=== PATIENT | male | born 1955 | race Caucasian/White ===

== ENCOUNTER → 2020-04-05 08:30 | Outpatient (BNV) | payer MEDICARE, OTHER, SELFPAY | PROVIDERS: PCP Hospitalist; Visit Provider Internal Medicine Medical Oncology | DX: D69.3 Immune thrombocytopenic purpura (principal); D64.9 Anemia, unspecified | CPT/HCPCS: 99212; 99213; 99214 ==

== ENCOUNTER → 2020-05-05 08:57 | Outpatient (BNVA) | payer MEDICARE, OTHER, SELFPAY | PROVIDERS: PCP Hospitalist; Visit Provider Internal Medicine Cardiovascular Disease | DX: R94.39 Abnormal result of other cardiovascular function study (principal); R07.9 Chest pain, unspecified; I45.2 Bifascicular block; D69.3 Immune thrombocytopenic purpura; I10 Essential (primary) hypertension | CPT/HCPCS: 99212 ==

== ENCOUNTER → 2020-06-28 14:52 | Outpatient (BNVA) | payer MEDICARE, OTHER, SELFPAY | PROVIDERS: PCP Hospitalist; Visit Provider Internal Medicine Cardiovascular Disease | DX: I10 Essential (primary) hypertension (principal); D69.3 Immune thrombocytopenic purpura; R94.39 Abnormal result of other cardiovascular function study; I45.2 Bifascicular block | CPT/HCPCS: 93005; 99212 ==

== ENCOUNTER → 2020-09-27 09:26 | Outpatient (BNVA) | payer MEDICARE, OTHER, SELFPAY | PROVIDERS: PCP Hospitalist; Visit Provider Internal Medicine Cardiovascular Disease | DX: R91.8 Other nonspecific abnormal finding of lung field (principal); I45.2 Bifascicular block; I10 Essential (primary) hypertension; Z79.899 Other long term (current) drug therapy | CPT/HCPCS: 99212 ==

== ENCOUNTER 2020-10-15 06:02 | Outpatient (REF) | payer MEDICARE, OTHER, SELFPAY ==
[2020-10-15 11:28] LABS: MANUAL DIFF FLAG NO
[2020-10-15 11:37] LABS: Basophils Absolute Auto 0.1 X10*3/uL (0.0-0.2); Eosinophils Absolute Auto 0.3 X10*3/uL (0.0-0.4); Eosinophils Percent Auto 4.3 % (0-4); Hematocrit 37.2 % (42-52); Imm Gran Abs Auto 0.02 X10*3/uL (0.00-0.03); Imm Gran Pct Auto 0.3 % (0.0-0.4); Lymphocytes Absolute Auto 1.7 X10*3/uL (1.2-4.9); Lymphocytes Percent Auto 27.5 % (20-40); Mean Corpuscular HGB Conc 32.3 g/dl (31.0-36.0); Mean Corpuscular Hemoglobin 29.9 pg (27.0-33.0); Mean Corpuscular Volume 92.8 fL (80-98); Mean Platelet Volume 11.2 fL (9.4-12.4); Monocytes Absolute Auto 0.6 X10*3/uL (0.1-1.2); Monocytes Percent Auto 9.4 % (2-11); Neutrophils Absolute Auto 3.6 X10*3/uL (2.0-8.3); Neutrophils Percent Auto 57.5 % (45-73); Platelet Count 143 X10*3/uL (160-400); Red Blood Count 4.01 X10*6/uL (4.60-5.80); Red Cell Distribution Width 14.3 % (11.0-16.0); White Blood Count 6.3 X10*3/uL (4.8-10.8)
[2020-10-15 12:18] LABS: Prostate Specific Antigen Scr 1.65 ng/mL (<0.05-4.0)
[2020-10-15 12:26] LABS: Alanine Aminotransferase 19 U/L (0-40); Albumin Level 4.2 g/dL (3.5-5.0); Alkaline Phosphatase 61 U/L (39-117); Anion Gap 14 (12-20); Aspartate Amino Transferase 19 U/L (5-37); Bilirubin Total 0.6 mg/dL (0.0-1.0); Blood Urea Nitrogen 32 mg/dL (9-16); Calcium 9.1 mg/dL (8.4-10.2); Carbon Dioxide 26 mmol/L (22-29); Chloride 107 mmol/L (96-108); Cholesterol 139 mg/dL; Estimated Glomerular Filt Rate 55; Glucose Fasting 86 mg/dL (60-99); HDL Cholesterol 35 mg/dL; LDL Cholesterol Calculated 73 mg/dl; Potassium 4.1 mmol/L (3.3-5.1); Sodium 143 mmol/L (135-145); Triglycerides 159 mg/dL
== END 2020-10-15 06:03 | disposition home or self-care (01) ==
LOC: HO.HMGCLDS 06:02
PROVIDERS: PCP Hospitalist; Visit Provider Hospitalist
DX: Z00.00 Encounter for general adult medical examination without abnormal findings (principal); D69.3 Immune thrombocytopenic purpura
CPT/HCPCS: 36415; 80053; 80061; 84153; 85025

== ENCOUNTER → 2020-10-18 08:44 | Outpatient (BNVA) | payer MEDICARE, OTHER, SELFPAY | PROVIDERS: PCP Hospitalist; Visit Provider Internal Medicine Pulmonary Disease | DX: R91.8 Other nonspecific abnormal finding of lung field (principal) | CPT/HCPCS: 99202 ==

== ENCOUNTER 2020-11-05 07:45 | Outpatient (REF) | payer MEDICARE, OTHER, SELFPAY ==
--- NOTE | 2020-11-05 15:31 | PFT_ITS ---
FVC, FEV1, [id number], and MVV are all normal. Post bronchodilator therapy, there is no change. Total lung capacity normal. Residual volume slightly decreased. Diffusion capacity normal. CONCLUSION: Normal pulmonary function test. MD ADRIANA Vasquez/MODL / [id number]
== END 2020-11-05 07:46 | disposition home or self-care (01) ==
LOC: HO.RESP 07:45
PROVIDERS: PCP Hospitalist; Visit Provider Internal Medicine Pulmonary Disease
DX: R91.8 Other nonspecific abnormal finding of lung field (principal)
CPT/HCPCS: 94060; 94727; 94729

== ENCOUNTER 2020-11-08 14:23 | Outpatient (REF) | payer MEDICARE, OTHER, SELFPAY ==
--- NOTE | ~2020-11-08 | US_ITS ---
EXAMINATION: US RETROPERITONEAL LIMITED (RENAL ONLY) CLINICAL INFORMATION: Renal stones and cysts. COMPARISON: Ultrasound renal 12/22/2019 and 12/11/2018. TECHNIQUE: Real-time imaging of the kidneys. FINDINGS: RIGHT KIDNEY: 11.3 x 6.1 x 6.8 cm (SAG x AP x TRV). The kidney is normal in size, contour, and echogenicity. Renal cortical thickness is normal. There are 2 cysts measuring 2.2 x 2.9 x 1.9 cm in the upper pole and 4 x 3.1 x 3.6 cm in the midpole. No renal calculi or hydronephrosis. LEFT KIDNEY: 12.5 x 5.2 x 5.0 cm (SAG x AP x TRV). The kidney is normal in size, contour, and echogenicity. Renal cortical thickness is normal. No calculi or focal parenchymal lesions. No hydronephrosis. US/US renal BI IMPRESSION: Right renal cysts. The previously identified left renal stone is not appreciated.
--- NOTE | ~2020-11-08 | CT_ITS ---
EXAMINATION: CT CHEST WITHOUT CONTRAST CLINICAL INFORMATION: Other nonspecific abnormal finding lung field COMPARISON: Previous chest x-ray most recent July 2013 TECHNIQUE: Multidetector volumetric CT imaging of the chest was done. Axial MIP volume rendering provided. Sagittal and coronal reformatted images were obtained. This CT examination was performed using dose optimization techniques as appropriate, variously including the following: *Automated exposure control *Adjustment of mA and/or kV according to patient size (this includes techniques or standardized protocols for targeted exams where dose is matched to indication/reason for exam; i.e. extremities or head) *Use of iterative reconstruction technique DLP: 322 mGy-cm FINDINGS: LUNGS: There are multiple bilateral pulmonary nodules. Largest right pulmonary nodule is a peripheral or subpleural right lower lobe nodule adjacent to the major fissure and measures 1.5 x 0.5 cm axial image 323 series 7. The largest left pulmonary nodule is a 5 mm peripheral or subpleural left lower lobe nodule adjacent to the fissure axial image 266 series 7. And 4 x 7 mm axial image 276 series 7. There is a 3 mm calcified left lower lobe nodule axial image 390 series 7 probably representing a calcified granuloma. The remainder of the pulmonary nodules are peripheral or subpleural and likely represent subpleural lymph nodes. MEDIASTINUM: There is mediastinal lymphadenopathy. Largest lymph nodes are right paratracheal and right precarinal lymph nodes that are upper normal in size measuring 1 cm. No hilar adenopathy is seen. The heart does not appear enlarged. There is mild coronary artery calcification. There is no pericardial effusion. The thoracic aorta is normal in caliber. The visualized thyroid gland is normal. PLEURA: There is no pleural effusion. No pleural mass or thickening. AXILLA: No lymphadenopathy. UPPER ABDOMEN: There is diverticulosis of the colon. OSSEOUS STRUCTURES: There are degenerative changes of the spine. CT/CT chest wo con IMPRESSION: Multiple bilateral pulmonary nodules, the majority of which are peripheral or subpleural in location and probably represent subpleural lymph nodes. Upper normal-sized mediastinal lymph nodes. Mild coronary artery calcification.
== END 2020-11-08 14:24 | disposition home or self-care (01) ==
LOC: HO.CT 14:23
PROVIDERS: PCP Hospitalist; Visit Provider Urology
DX: N20.0 Calculus of kidney (principal); N28.1 Cyst of kidney, acquired; R91.8 Other nonspecific abnormal finding of lung field
CPT/HCPCS: 71250; 76775

== ENCOUNTER → 2020-11-12 09:39 | Outpatient (BNVA) | payer MEDICARE, OTHER, SELFPAY | PROVIDERS: PCP Hospitalist; Visit Provider Internal Medicine Pulmonary Disease | DX: J45.909 Unspecified asthma, uncomplicated (principal); R91.8 Other nonspecific abnormal finding of lung field | CPT/HCPCS: 99212 ==

== ENCOUNTER → 2020-12-03 13:47 | Outpatient (BNVA) | payer MEDICARE, OTHER, SELFPAY | PROVIDERS: PCP Hospitalist; Visit Provider Urology | CPT/HCPCS: Q3014 ==

== ENCOUNTER 2021-01-21 13:16 | Outpatient (REF) | payer MEDICARE, OTHER, SELFPAY ==
--- NOTE | ~2021-01-21 | CT_ITS ---
EXAMINATION: CT CHEST WITHOUT CONTRAST CLINICAL INFORMATION: Abnormal finding of lung field. COMPARISON: CT chest 11/08/2020. TECHNIQUE: Multidetector volumetric CT imaging of the chest was done. Axial MIP volume rendering provided. Sagittal and coronal reformatted images were obtained. This CT examination was performed using dose optimization techniques as appropriate, variously including the following: *Automated exposure control *Adjustment of mA and/or kV according to patient size (this includes techniques or standardized protocols for targeted exams where dose is matched to indication/reason for exam; i.e. extremities or head) *Use of iterative reconstruction technique DLP: 330 mGy-cm FINDINGS: TAXI DRIVER SUPERVISOR: Unremarkable. LUNGS: The lungs are expanded and clear of acute pneumonic consolidation. There are multiple pulmonary nodules visualized. The largest nodule along the right major fissure measures 1.4 cm on axial image 277/5. There are several smaller nodular changes along the right major fissure on either side at the same level on axial image 276/5 and 272/5. There are 2 additional smaller 3 mm nodules right middle lobe axial image 28/3. There is a 5 mm nodule right major fissure axial image 33/3, 7 mm nodule right lower lobe axial image 382/5. All of these nodules are unchanged. There is no atelectasis or ground-glass density. MEDIASTINUM: The thyroid lobes are symmetrical and normal. The central trachea and the bronchi are widely patent. There are small shotty lymph nodes in the subcarinal, pretracheal space and aortic window. PLEURA: There is no pleural effusion. No pleural mass or thickening. AXILLA: No lymphadenopathy. UPPER ABDOMEN: Visualized liver, spleen, pancreas and bilateral adrenal glands are unremarkable. There is a partially exophytic cyst upper pole right kidney. A small 2 mm radiopaque calculus seen upper pole left kidney. OSSEOUS STRUCTURES: No lytic or sclerotic process seen. CT/CT chest wo con IMPRESSION: Multiple bilateral thyroid nodules are stable. There are small shotty mediastinal lymph nodes. Colonic diverticulosis without diverticulitis.
== END 2021-01-21 13:17 | disposition home or self-care (01) ==
LOC: HO.CT 13:16
PROVIDERS: PCP Hospitalist; Visit Provider Internal Medicine Pulmonary Disease
DX: R91.8 Other nonspecific abnormal finding of lung field (principal)
CPT/HCPCS: 71250

== ENCOUNTER → 2021-02-18 08:52 | Outpatient (BNVA) | payer MEDICARE, OTHER, SELFPAY | PROVIDERS: PCP Hospitalist; Visit Provider Internal Medicine Pulmonary Disease | DX: J45.909 Unspecified asthma, uncomplicated (principal); R91.8 Other nonspecific abnormal finding of lung field | CPT/HCPCS: 99212 ==

== ENCOUNTER 2021-08-03 07:12 | Outpatient (REF) | payer MEDICARE, OTHER, SELFPAY ==
--- NOTE | ~2021-08-03 | CT_ITS ---
EXAMINATION: CT CHEST WITHOUT CONTRAST CLINICAL INFORMATION: Pulmonary nodule. COMPARISON: None TECHNIQUE: Multidetector volumetric CT imaging of the chest was done. Axial MIP volume rendering provided. Sagittal and coronal reformatted images were obtained. This CT examination was performed using dose optimization techniques as appropriate, variously including the following: *Automated exposure control *Adjustment of mA and/or kV according to patient size (this includes techniques or standardized protocols for targeted exams where dose is matched to indication/reason for exam; i.e. extremities or head) *Use of iterative reconstruction technique DLP: 409 mGy-cm FINDINGS: FLOWER CHENILLER: Elevated right hemidiaphragm. LUNGS: Again visualized are multiple calcified and non calcified nodules in both lungs. The largest non calcified nodule right lobe adjacent to the major fissure measures 1.2 cm axial image 223/5. Adjacent focal nodules along the right major fissure on axial image 223/5 are stable. 3 mL nodule along the right major fissure and right lower lobe axial image 257/6 is stable as well, at least 2 pleural-based nodules left lower lobe are stable as well. No new nodules are seen. MEDIASTINUM: The thyroid lobes are of normal size. The central trachea and the bronchi are widely patent. Heart size and the great vessels are of normal caliber. There are small shotty pretracheal and paratracheal lymph nodes. The largest pretracheal lymph node measuring 1.1 cm axial image 20/3 is stable. There are trace coronary artery calcifications. There is no pericardial effusion seen. PLEURA: There is no pleural effusion. No pleural mass or thickening. AXILLA: No lymphadenopathy. UPPER ABDOMEN: Visualized liver, spleen, pancreas and bilateral adrenal glands are unremarkable. There are no radiopaque gallstones. There is a right renal cyst. There is diffuse colonic diverticulosis. OSSEOUS STRUCTURES: No lytic or sclerotic process seen. CT/CT chest wo con IMPRESSION: Stable multiple pulmonary nodules and shotty mediastinal lymph nodes. No new pulmonary nodules are seen. Colonic diverticulosis without diverticulitis. Fleischner guidelines were followed.
== END 2021-08-03 07:13 | disposition home or self-care (01) ==
LOC: HO.CT 07:12
PROVIDERS: PCP Internal Medicine; Visit Provider Internal Medicine Pulmonary Disease
DX: R91.8 Other nonspecific abnormal finding of lung field (principal)
CPT/HCPCS: 71250

== ENCOUNTER → 2021-08-26 08:56 | Outpatient (BNVA) | payer MEDICARE, OTHER, SELFPAY | PROVIDERS: PCP Internal Medicine; Visit Provider Internal Medicine Pulmonary Disease | DX: J45.909 Unspecified asthma, uncomplicated (principal); R91.8 Other nonspecific abnormal finding of lung field | CPT/HCPCS: 99212 ==

== ENCOUNTER 2021-12-22 14:20 | Outpatient (REF) | payer MEDICARE, OTHER, SELFPAY ==
--- NOTE | ~2021-12-22 | US_ITS ---
EXAMINATION: US RETROPERITONEAL LIMITED (RENAL ONLY) CLINICAL INFORMATION: Calculus of kidney. COMPARISON: US retroperitoneal limited (renal only) 11/08/2020 TECHNIQUE: Real-time imaging of the kidneys. FINDINGS: RIGHT KIDNEY: 11.9 x 6.4 x 5.4 cm (SAG x AP x TRV). The kidney is normal in size, contour, and echogenicity. Renal cortical thickness is normal. No renal calculi or hydronephrosis. Benign-appearing renal cysts measuring up to 5.1 cm, no imaging follow-up recommended. LEFT KIDNEY: 12.6 x 5.5 x 4.3 cm (SAG x AP x TRV). The kidney is normal in size, contour, and echogenicity. Renal cortical thickness is normal. No calculi or focal parenchymal lesions. No hydronephrosis. US/US renal BI IMPRESSION: No hydronephrosis or nephrolithiasis.
== END 2021-12-22 14:21 | disposition home or self-care (01) ==
LOC: HO.US 14:20
PROVIDERS: Visit Provider Urology
DX: N20.0 Calculus of kidney (principal)
CPT/HCPCS: 76775

== ENCOUNTER → 2022-01-25 11:04 | Outpatient (BNVA) | payer MEDICARE, OTHER, SELFPAY | PROVIDERS: PCP Hospitalist; Visit Provider Urology | DX: N52.01 Erectile dysfunction due to arterial insufficiency (principal); N28.1 Cyst of kidney, acquired; N20.0 Calculus of kidney | CPT/HCPCS: 99212 ==

== ENCOUNTER 2022-03-17 06:48 | Day surgery (SDC) | payer MEDICARE, OTHER, SELFPAY ==
[2022-03-13 12:22] VITALS: BMI 41.5
--- NOTE | 2022-03-14 13:26 | HO.ANESPROP2 ---
Documented by User: Ofelia Peters NP 03/16/22 09:20 HPI - Anesthesia Eval Consult details Narrative: 66yo M for Upper Endoscopy and Colonoscopy ITP - follows Dr Rosenthal. Good response to [facility]. Per Dr Rosenthal, ok to proceed without any preop considerations if platelets >100. PLT = 161 on 03/16/22 Cardiac w/u 2020 for bifasc block WNL Follow pulm for nodules - stable on last chest CT PMFSH Active Problems Active Problems: All Active Problems (Updated 03/13/22 @ 15:27 by Joana Turner RN) Chronic ITP (idiopathic thrombocytopenia) (Acute) Equivocal stress test (Acute) Exertional chest pain (Acute) Bifascicular block (Acute) Lung nodules (Acute) CAD (coronary artery disease) (Acute) Erectile dysfunction due to arterial insufficiency (Acute) Renal cyst (Acute) Kidney stones (Acute) Asthma (Acute) Hypertension (Acute) Past Medical History Medical History (Updated 03/13/22 @ 15:27 by Joana Turner RN) Anemia Asthma Basal cell carcinoma (BCC) in situ of skin Chronic ITP (idiopathic thrombocytopenic purpura) Gout Hypertension Kidney stones Malignant melanoma of skin of arm MALIHA on CPAP Right bundle branch block (RBBB) with left anterior fascicular block Family History Family History Father No problems noted. Mother No problems noted. Family/Other No problems noted. Sister Pancreatic cancer Surgical History Surgical History (Updated 03/13/22 @ 15:27 by Joana Turner RN) H/O bilateral hip replacements History of hernia surgery Hx of colonoscopy Hx of cystoscopy Hx of lithotripsy Social History Social History Household Members: Spouse Housing: House Are you a primary geriatric care manager to a significant other at home: No Do you presently have visiting nurse or other home services: No Alcohol intake: current Alcohol intake frequency: a few times a month Alcohol type: beer Patient Tobacco Use Status: Never used Tobacco Use of substances other than those prescribed or required for medical reasons: No Have you been hit, kicked, punched, or otherwise hurt by someone within the past year? If so, by whom?: No Are you DNR?: No Advance Directives: No Advance Directives Information Provided: Yes Advance Directives on File: No Recently lost weight without trying: No Poor oral hygiene: No service: No Current occupational status: retired Meds Allergies Allergy/AdvReac Type Severity Reaction Status Date / Time No Known Allergies Allergy Verified 03/13/22 12:21 Home Medications Medication Instructions Recorded Confirmed Last Taken Type acetaminophen 650 mg tablet 650 mg PO Q4H PRN Pain 04/05/20 03/13/22 03/15/22 History budesonide-formoterol HFA 160 2 puff inhalation BID PRN 04/05/20 03/13/22 03/16/22 History mcg-4.5 mcg/actuation aerosol Shortness Of Breath Or Wheezing inhaler (Symbicort) cetirizine 10 mg capsule (Zyrtec) 10 mg PO DAILY 04/05/20 03/13/22 03/16/22 History diphenhydramine HCl 50 mg capsule 50 mg PO Q6H PRN Allergic Reaction 04/05/20 03/13/22 12/21/21 History fluticasone propionate 50 2 spray intranasal BEDTIME 04/05/20 03/13/22 03/16/22 History mcg/actuation nasal spray,suspension montelukast 10 mg tablet 10 mg PO BEDTIME 04/05/20 03/13/22 03/16/22 History (Singulair) multivitamin 1 cap PO DAILY 04/05/20 03/13/22 03/16/22 History cholecalciferol (vitamin D3) 50 50 mcg PO DAILY 07/19/20 03/13/22 03/16/22 History mcg (2,000 unit) tablet (Vitamin D3) amlodipine 5 mg-benazepril 20 mg 1 cap PO DAILY 09/30/21 03/13/22 03/16/22 History capsule cyanocobalamin (vitamin B-12) 1,000 mcg PO DAILY 01/02/22 03/13/22 03/16/22 History 1,000 mcg tablet (Vitamin B-12) Exam Exam Date and Time: March 14, 2022 1326 Height,Weight and Vital Signs: Height 5 ft 10 in Weight 131.542 kg Pertinent Lab Results Pertinent Lab Results: Laboratory Tests 03/06/22 03/06/22 08:26 08:26 WBC 6.3 Hgb 12.0 L Hct 36.8 L Plt Count 134 L Sodium 144 Potassium 4.1 Chloride 109 H Carbon Dioxide 26 BUN 16 Creatinine 1.03 Narrative Narrative: EKG 2020 sinus tachycardia, RBBB, LAFB, LVH, QTc 481 msec Per 09/2020 cardiac visit: Echocardiography did not show any significant pathology.? His nuclear perfusion imaging was normal but he was only able to exercise for 4 minutes 48 seconds achieving a workload of 6.7 Mets.? He stopped due to fatigue.? He denied chest discomfort during the stress test.? He had multiple premature atrial complexes and premature ventricular complexes with nonspecific ST changes. He was previously referred for coronary CTA.? He is here to discuss the results.? Coronary CTA showed no evidence of hemodynamically significant coronary artery disease.? There was scattered minimal and predominantly calcific plaque in the LAD and RCA. Assessment and Plan Assessment Anesthesia Assessment: Chart Reviewed Documented by User: Opal Dobbs MD 03/17/22 09:11 [facility] Past Medical History Medical History (Updated 03/13/22 @ 15:27 by Joana Turner RN) Anemia Asthma Basal cell carcinoma (BCC) in situ of skin Chronic ITP (idiopathic thrombocytopenic purpura) Gout Hypertension Kidney stones Malignant melanoma of skin of arm MALIHA on CPAP Right bundle branch block (RBBB) with left anterior fascicular block Family History Family History Father No problems noted. Mother No problems noted. Family/Other No problems noted. Sister Pancreatic cancer Family history of problems with anesthesia: No Surgical History Surgical History (Updated 03/13/22 @ 15:27 by Joana Turner RN) H/O bilateral hip replacements History of hernia surgery Hx of colonoscopy Hx of cystoscopy Hx of lithotripsy History of Problems with Anesthesia: No Social History Social History Household Members: Spouse Housing: House Are you a primary geriatric care manager to a significant other at home: No Do you presently have visiting nurse or other home services: No Alcohol intake: current Alcohol intake frequency: a few times a month Alcohol type: beer Patient Tobacco Use Status: Never used Tobacco Use of substances other than those prescribed or required for medical reasons: No Have you been hit, kicked, punched, or otherwise hurt by someone within the past year? If so, by whom?: No Are you DNR?: No Advance Directives: No Advance Directives Information Provided: Yes Advance Directives on File: No Recently lost weight without trying: No Poor oral hygiene: No service: No Current occupational status: retired [employer] Allergies Allergy/AdvReac Type Severity Reaction Status Date / Time No Known Allergies Allergy Verified 03/13/22 12:21 Home Medications Medication Instructions Recorded Confirmed Last Taken Type acetaminophen 650 mg tablet 650 mg PO Q4H PRN Pain 04/05/20 03/13/22 03/15/22 History budesonide-formoterol HFA 160 2 puff inhalation BID PRN 04/05/20 03/13/22 03/16/22 History mcg-4.5 mcg/actuation aerosol Shortness Of Breath Or Wheezing inhaler (Symbicort) cetirizine 10 mg capsule (Zyrtec) 10 mg PO DAILY 04/05/20 03/13/22 03/16/22 History diphenhydramine HCl 50 mg capsule 50 mg PO Q6H PRN Allergic Reaction 04/05/20 03/13/22 12/21/21 History fluticasone propionate 50 2 spray intranasal BEDTIME 04/05/20 03/13/22 03/16/22 History mcg/actuation nasal spray,suspension montelukast 10 mg tablet 10 mg PO BEDTIME 04/05/20 03/13/22 03/16/22 History (Singulair) multivitamin 1 cap PO DAILY 04/05/20 03/13/22 03/16/22 History cholecalciferol (vitamin D3) 50 50 mcg PO DAILY 07/19/20 03/13/22 03/16/22 History mcg (2,000 unit) tablet (Vitamin D3) amlodipine 5 mg-benazepril 20 mg 1 cap PO DAILY 09/30/21 03/13/22 03/16/22 History capsule cyanocobalamin (vitamin B-12) 1,000 mcg PO DAILY 01/02/22 03/13/22 03/16/22 History 1,000 mcg tablet (Vitamin B-12) Exam Height,Weight and Vital Signs: Height 5 ft 10 in Weight 131.542 kg Vital Signs Temp Pulse Resp BP Pulse Ox O2 Del Method 03/17/22 07:05 98 F 86 17 159/72 H 97 Room Air Airway Mallampati Class: II TM Dist: >3cm Neck ROM: Full Loose/Missing/Broken Teeth: Yes (Some missing ) Heart: RRR Lungs: CTAB Assessment and Plan Assessment Anesthesia Assessment: Anesthesia Plan Discussed Final Anesthetic Review Family History of Problems with Anesthesia: No History of Problems with Anesthesia: No NPO: Yes ASA Class: III Final Preanesthetic Review: No Changes in Pt Med Stat, Meds/Allgs Chart Reviewed, Consent Obtained/Reviewed and Anes Risks/Benef Reviewed Patient Risk: Intermediate Procedure Risk: Low Assessment/Block/Sedation in SS: Assess/Block/Sedation-SS Anesthetic Plan Anesthetic Plan: MAC: Disposition: Standard PACU
[2022-03-17 07:05] VITALS: BP 159/72; PULSE 86; RESP 17; TEMP 36.6; O2SAT 97
[2022-03-17] MEDS: Lactated Ringers 1,000 ML 100 ML IVCONT (07:22)
--- NOTE | 2022-03-17 08:15 | MHC.SHP ---
Pre-Procedural Eval Section A Date of Service: 03/17/22 Section B Chief Complaint: Iron deficiency anemia, unspecified Details of Present Illness: see H*P no changes Relevant Family History (Specify if Yes): No Relevant Social History: None Present Medications: see Short Stay Collaborative assessment Medical History: No relevant PMH History of Previous Operations: No relevant previous surgery Allergies: Allergies Allergy/AdvReac Type Severity Reaction Status Date / Time No Known Allergies Allergy Verified 03/13/22 12:21 Review of Systems Sugical H&P ROS: Negative: Constitution, Cardiovascular, Respiratory, Neurological, Psychiatric, Hem-Onc, Allergic/Immunologic, Gastrointestinal, Genitourinary, Musculoskeletal, Integumentary, Endocrine and Eyes/Ears/Nose/Throat Exam Surgical H&P Exam: Normal: HEENT, Normal: Heart, Normal: Lungs, Normal: Extremities, Normal: Abdomen, Normal: Skin and Normal: Neurological Plan Diagnosis/Plan: Unchanged I have reviewed the history and physical and performed a pertinent physical examination on my patient. No changes have occurred unless specified.
[2022-03-17 09:07] VITALS: BP 115/60; PULSE 70; RESP 25; TEMP 36.4; O2SAT 98
--- NOTE | 2022-03-17 09:14 | PM.OP ---
Brief Operative Note Date of Service: 03/17/22 Pre-op diagnosis: iron def anemia Post-op diagnosis: same Procedure: egd, colon Surgeon: Ronny Bass Anesthesia: MAC Was an Quality Control Supervisor used for this Procedure?: No Estimated blood loss (mL): 5 Pathology: other Condition: stable Disposition: PACU
[2022-03-17 09:22] VITALS: BP 129/76; PULSE 74; RESP 20; TEMP 36.3; O2SAT 98
--- NOTE | 2022-03-17 09:56 | OP_ITS ---
SURGEON: Ronny Bass MD INDICATIONS: Iron-deficiency anemia and prior history of adenomatous colon polyps. PREOPERATIVE DIAGNOSIS: POSTOPERATIVE DIAGNOSIS: PROCEDURE PERFORMED: Upper endoscopy with biopsy, colonoscopy to the terminal ileum with snare polypectomy. Date 03/17/22. ESTIMATED BLOOD LOSS: COMPLICATIONS: ANESTHESIA: ASSISTANTS: SPECIMENS: MEDICATIONS: Monitored anesthesia care. DESCRIPTION OF PROCEDURE: History and physical performed. The risks and benefits of the procedure were explained to the patient. Informed consent was obtained. The patient was placed in the left lateral decubitus position. The Olympus video gastroscope was introduced into the esophagus, stomach, and duodenum. Examination was performed. The scope was removed. He was repositioned for colonoscopy. Digital rectal exam was performed and was found to be normal. The Olympus pediatric video colonoscope was introduced into the rectum and advanced to the cecum without difficulty. The cecum was identified by transillumination, palpation, and identification of the ileocecal valve. Examination was performed. The scope was removed. He tolerated the procedure well and was returned to the recovery area in stable condition. FINDINGS: Upper endoscopy: 1. Esophagus: The esophagus was normal. There was no esophagitis. 2. Stomach: The stomach showed multiple benign-appearing gastric polyps, measuring less than 5 mm in the fundus and body consistent with fundic gland polyps. Two of these were biopsied. Antral biopsies were obtained to rule out H pylori. 3. Duodenum: The bulb and second portion were normal. Biopsies were obtained from the duodenum. COLONOSCOPY: The terminal ileum was examined and appeared normal. The visualized colonic mucosa was normal. In the right colon just above the cecum was an 8 mm sessile polyp, was removed with a snare and recovered via suction. No other polyps were identified. The quality of the prep was good. Retroflexed examination showed some small internal hemorrhoids. IMPRESSION: 1. Gastric polyps. 2. Colon polyp. RECOMMENDATION: Follow up the biopsy results. MD BLANE Mcleod/ARIELLA / [id number] MTDD
== END 2022-03-17 09:55 | disposition home or self-care (01) ==
PROVIDERS: PCP Internal Medicine; Visit Provider Internal Medicine Gastroenterology
PROC: (CPT 45385; principal; 2022-03-17 08:10)
DX: D50.9 Iron deficiency anemia, unspecified (principal); Z86.010 Personal history of colon polyps; K64.8 Other hemorrhoids; D12.2 Benign neoplasm of ascending colon; K31.7 Polyp of stomach and duodenum; I10 Essential (primary) hypertension; D69.3 Immune thrombocytopenic purpura; I45.2 Bifascicular block; G47.33 Obstructive sleep apnea (adult) (pediatric); J45.909 Unspecified asthma, uncomplicated; Z79.51 Long term (current) use of inhaled steroids; Z79.899 Other long term (current) drug therapy; Z99.89 Dependence on other enabling machines and devices; Z96.643 Presence of artificial hip joint, bilateral
CPT/HCPCS: 45385; 43239; 88305; 88342

== ENCOUNTER 2022-09-12 07:06 | Outpatient (REF) | payer MEDICARE, OTHER, SELFPAY ==
--- NOTE | ~2022-09-12 | CT_ITS ---
EXAMINATION: CT CHEST WITHOUT CONTRAST CLINICAL INFORMATION: Abnormal lung findings. COMPARISON: CT chest 08/03/2021. TECHNIQUE: Multidetector volumetric CT imaging of the chest was done. Axial MIP volume rendering provided. Sagittal and coronal reformatted images were obtained. This CT examination was performed using dose optimization techniques as appropriate, variously including the following: *Automated exposure control *Adjustment of mA and/or kV according to patient size (this includes techniques or standardized protocols for targeted exams where dose is matched to indication/reason for exam; i.e. 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 LUNGS: The lungs are well expanded without any acute pneumonic process. There are small 1-2 mm calcified nodules scattered throughout lungs. There are several 2-3 mm noncalcified nodules seen throughout both lungs, the largest nodule right lower lobe adjacent major fissure measures 1.2 mm axial image 263/7 and is stable. There are several additional nodules seen along the right and left major fissure, similar to previous study and are stable. The largest nodule left lower lobe adjacent to major fissure measures 8 mm, axial image 237/7. MEDIASTINUM: The thyroid lobes are symmetric and normal. The central trachea and the bronchi are widely patent. Small shotty lymph nodes are seen in the mediastinum, largest measuring 1.2 cm. There is no pericardial effusion. There is mild coronary artery calcification. CORONARY ARTERY CALCIFICATION: There are mild coronary artery calcifications present. PLEURA: There is no pleural effusion. No pleural mass or thickening. AXILLA: No lymphadenopathy. UPPER ABDOMEN: The visualized liver, spleen, pancreas and bilateral adrenal glands are unremarkable. There is a 3 cm cyst upper pole right kidney. OSSEOUS STRUCTURES: No aggressive lytic or sclerotic process seen. CT/CT chest wo IV con IMPRESSION: 1. Multiple calcified and noncalcified pulmonary nodules are stable. No new nodules seen. 2. No abnormal mediastinal or axillary lymphadenopathy seen. Fleischner guidelines were followed.
== END 2022-09-12 07:07 | disposition home or self-care (01) ==
LOC: HO.CT 07:06
PROVIDERS: Visit Provider Internal Medicine Pulmonary Disease
DX: R91.8 Other nonspecific abnormal finding of lung field (principal)
CPT/HCPCS: 71250

== ENCOUNTER → 2022-09-15 08:54 | Outpatient (BNVA) | payer MEDICARE, OTHER, SELFPAY | PROVIDERS: PCP Internal Medicine; Visit Provider Internal Medicine Pulmonary Disease | DX: J45.909 Unspecified asthma, uncomplicated (principal); R91.8 Other nonspecific abnormal finding of lung field | CPT/HCPCS: 99212 ==

== ENCOUNTER 2023-01-08 07:42 | Outpatient (REF) | payer MEDICARE, OTHER, SELFPAY ==
--- NOTE | ~2023-01-08 | US_ITS ---
EXAMINATION: US RETROPERITONEAL LIMITED (RENAL ONLY) CLINICAL INFORMATION: Calculus of kidney. COMPARISON: Ultrasound retroperitoneal limited (renal only) 12/22/2021 and 11/08/2020. X-ray abdomen KUB 12/18/2012. CT abdomen and pelvis without contrast 11/25/2012. TECHNIQUE: Real-time imaging of the kidneys. Limited visualization due to bowel gas. FINDINGS: RIGHT KIDNEY: 12.6 x 6.0 x 5.2 cm (SAG x AP x TRV). No hydronephrosis. No renal calculi. Limited visualization. Benign-appearing renal cysts measuring up to 4.2 cm midpole. There is no indication for follow up imaging. LEFT KIDNEY: 12.8 x 5.3 x 4.9 cm (SAG x AP x TRV). No hydronephrosis. No renal calculi. Limited visualization. US/US renal BI IMPRESSION: No hydronephrosis. No renal calculi. Limited visualization.
== END 2023-01-08 07:43 | disposition home or self-care (01) ==
LOC: HO.US 07:42
PROVIDERS: PCP Internal Medicine; Visit Provider Urology
DX: N20.0 Calculus of kidney (principal); N28.1 Cyst of kidney, acquired
CPT/HCPCS: 76775

== ENCOUNTER 2023-01-25 08:20 | Outpatient (AMB) | payer MEDICARE, OTHER, SELFPAY ==
--- NOTE | 2023-01-25 08:28 | A.OFFVIS_ITS ---
Intake Intake Visit Reasons: 1Y US(set) Intake Note: Patient is present for Follow Up Ultrasound Urology Med: Cialis Antibiotic Allergy: None Blood Thinner: None [facility] Patient is requesting refill on cialis Allergies No Known Allergies Allergy (Verified 01/25/23 08:34) HPI HPI Comments History of Present Illness Details Donald is a pleasant male. He is seen for following urologic conditions - nephrolithiasis - erectile dysfunction - renal cysts - stable Imaging results stable no need for further imaging of cyst Erectile dysfunction stable with good response to Cialis Developing bladder outlet obstruction with variable stream and occasional urgency - trial daily tadalafil Nephrolithiasis Prior small left lower pole stone Current therapy is hydration therapy with lemon Imaging - 12/06 renal ultrasound to 3 cm cyst on right side, no evidence of stones - 12/07 renal ultrasound 5 cm right side - 12/08 renal ultrasound 5 mm right side stable - radiology recommendation no further surveillance required Erectile dysfunction Response to on demand Cialis PFSH Medical History Anemia Asthma Basal cell carcinoma (BCC) in situ of skin Chronic ITP (idiopathic thrombocytopenic purpura) Gout Hypertension Kidney stones Malignant melanoma of skin of arm MALIHA on CPAP Right bundle branch block (RBBB) with left anterior fascicular block Surgical History H/O bilateral hip replacements History of hernia surgery Hx of colonoscopy Hx of cystoscopy Hx of lithotripsy Family History Father No problems noted. Mother No problems noted. Family/Other No problems noted. Sister Pancreatic cancer Social History Household Members: Spouse Housing: House Are you a primary ocular care aide to a significant other at home: No Do you presently have visiting nurse or other home services: No Alcohol intake: current Alcohol intake frequency: a few times a month Alcohol type: beer Patient Tobacco Use Status: Never used Tobacco service: No Current occupational status: retired Review of Systems Const Denies chills and Denies fever(s) Card Reports no additional complaints and Denies syncope Resp Denies cough GI Denies abdominal pain and Denies heartburn Reports as per HPI and Denies change in libido Neuro Denies syncope Psych Denies change in libido Endo Denies change in libido Physical Exam Const General: cooperative, healthy appearing, comfortable and no acute distress Orientation/consciousness: patient oriented x3 HEENT Face and sinus: Yes normal facial exam Mouth: moist mucous membranes Neck Neck: Yes normal visual inspection, Yes full ROM and Yes trachea midline Chest Chest palpation & inspection: normal inspection of the chest Resp Effort & Inspection: normal respiratory effort, able to speak in complete sentences and no respiratory distress GI Inspection: Yes normal to inspection Back/Spine/Pelvis Cervical Spine: normal cervical lordosis Thoracic/Lumbar Spine: thoracic and lumbar spine normal to inspection Skin General skin exam: no rashes or lesions noted Neuro General: patient oriented x3, gait normal, tone normal and moves all extremities Extrem General: Yes normal to inspection and Yes capillary refill normal Assessment & Plan Assessment & Plan (1) Bladder outlet obstruction: Code(s): N32.0 - Bladder-neck obstruction Plan Three month follow-up tele Medications: New tadalafil 5 mg PO DAILY 90 days 90 tabs 1RF sexual activity N32.0 - Bladder- neck obstruction, N52.01 - Erectile dysfunction due to arterial insufficiency Patient Instructions: Imaging studies, laboratory and physical exam results were discussed and reviewed in detail. No major barriers to patient understanding were identified. An opportunity to ask questions regarding the treatment plan was provided. All questions were answered. The patient expressed understanding and agreement with the above treatment plan. The patient is aware they should contact our office by phone for worsening of their current condition or the appearance of new urologic symptoms. Compliance is encouraged with any medications and followup testing that is ordered. It is a privilege to participate in the urologic care of your patient. If you have any questions or concerns regarding treatment for the above conditions, or other urologic issues, please do not hesitate to contact me. The office telephone contact is [phone]. This note is constructed using voice recognition software. While every effort has been made to ensure accuracy laborer adjustable steel joist errors may have been included. Yours sincerely, Dr Bill Mina MD, [facility] - Urology Providers of Expert, Compassionate Care for the Genitourinary System Coding Level of Care Code Est Pt Level 4 (44412) Diagnoses Bladder outlet obstruction N32.0
== END 2023-01-25 08:56 | disposition home or self-care (01) ==
PROVIDERS: Visit Provider Urology
DX: N32.0 Bladder-neck obstruction (principal)
CPT/HCPCS: 99214

== ENCOUNTER → 2023-01-25 08:20 | Outpatient (BNVA) | payer MEDICARE, OTHER, SELFPAY | PROVIDERS: Visit Provider Urology | DX: N52.01 Erectile dysfunction due to arterial insufficiency (principal); N28.1 Cyst of kidney, acquired | CPT/HCPCS: 99212 ==

== ENCOUNTER 2023-04-27 10:01 | Outpatient (AMB) | payer MEDICARE, OTHER, SELFPAY ==
--- NOTE | 2023-04-27 10:11 | MHC.OFFVIS ---
Intake Intake Visit Reasons: 3m follow up Allergies No Known Allergies Allergy (Verified 03/12/23 08:08) HPI HPI Comments History of Present Illness Details Donald is a pleasant male. 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 PDE-5 inhibitors indicate the encouraging useful effects by ischemia/reperfusion injury, myocar-dial infarction, cardiac hypertrophy, cardiomyopathy and systolic and diastolic congestive heart failure. Therefore, this and similar reviews can help for additional clinical targeting in the therapy of cardiovascular diseases. Telemedicine Evaluation 15 min Consultation [employer] Video attempted Recommend starting daily tadalafil Imaging results stable no need for further imaging of cyst Erectile dysfunction stable with good response to Cialis Developing bladder outlet obstruction with variable stream and occasional urgency - trial daily tadalafil Nephrolithiasis Prior small left lower pole stone Current therapy is hydration therapy with lemon Imaging - 12/06 renal ultrasound to 3 cm cyst on right side, no evidence of stones - 12/07 renal ultrasound 5 cm right side - 12/08 renal ultrasound 5 mm right side stable - radiology recommendation no further surveillance required Erectile dysfunction Response to on demand Cialis PFSH Medical History Anemia Asthma Basal cell carcinoma (BCC) in situ of skin Chronic ITP (idiopathic thrombocytopenic purpura) Gout Hypertension Kidney stones Malignant melanoma of skin of arm MALIHA on CPAP Right bundle branch block (RBBB) with left anterior fascicular block Surgical History H/O bilateral hip replacements History of hernia surgery Hx of colonoscopy Hx of cystoscopy Hx of lithotripsy Family History Father No problems noted. Mother No problems noted. Family/Other No problems noted. Sister Pancreatic cancer Social History Household Members: Spouse Housing: House Are you a primary personal care attendant to a significant other at home: No Do you presently have visiting nurse or other home services: No Alcohol intake: current Alcohol intake frequency: a few times a month Alcohol type: beer Patient Tobacco Use Status: Never used Tobacco service: No Current occupational status: retired Review of Systems Const All systems reviewed & are unremarkable except as noted in HPI and below Reports no additional complaints Resp Reports no additional complaints GI Reports no additional complaints Reports as per HPI Musc Reports no additional complaints Physical Exam Telemedicine evaluation Appropriate responses Regular breathing rate and rhythm HEENT Head: Yes normal to inspection Ears: hearing grossly normal bilaterally Eyes General: appearance normal, both eyes and all related structures Neck Neck: Yes normal visual inspection Chest Chest palpation & inspection: normal inspection of the chest Resp Effort & Inspection: normal respiratory effort and able to speak in complete sentences Assessment & Plan Assessment & Plan (1) Bladder outlet obstruction: Code(s): N32.0 - Bladder-neck obstruction (2) Kidney stones: Code(s): N20.0 - Calculus of kidney (3) Erectile dysfunction due to arterial insufficiency: Code(s): N52.01 - Erectile dysfunction due to arterial insufficiency Plan 6 month follow-up Patient Instructions: Imaging studies, laboratory and physical exam results were discussed and reviewed in detail. No major barriers to patient understanding were identified. An opportunity to ask questions regarding the treatment plan was provided. All questions were answered. The patient expressed understanding and agreement with the above treatment plan. The patient is aware they should contact our office by phone for worsening of their current condition or the appearance of new urologic symptoms. Compliance is encouraged with any medications and followup testing that is ordered. It is a privilege to participate in the urologic care of your patient. If you have any questions or concerns regarding treatment for the above conditions, or other urologic issues, please do not hesitate to contact me. The office telephone contact is [phone]. This note is constructed using voice recognition software. While every effort has been made to ensure accuracy technical consultant errors may have been included. Yours sincerely, Dr Bill Mina MD, [facility] - Urology Providers of Expert, Compassionate Care for the Genitourinary System Telehealth Telehealth Location of provider rendering services: practice address Location of patient: address on file Patient Identification confirmed using: Name, : Yes Telehealth method: video Patient verbally consented to treatment: Yes Patient verbally consented to billing insurance company: Yes Patient informed of any privacy concerns related to visit: Yes Coding Level of Care Code Tele Est Pt Level 3 (79282) Diagnoses Bladder outlet obstruction N32.0 Kidney stones N20.0 Erectile dysfunction due to arterial insufficiency N52.01
== END 2023-04-27 10:21 | disposition home or self-care (01) ==
LOC: HO.HUSH 10:01
PROVIDERS: PCP Internal Medicine; Visit Provider Urology
DX: N32.0 Bladder-neck obstruction (principal); N20.0 Calculus of kidney; N52.01 Erectile dysfunction due to arterial insufficiency
CPT/HCPCS: 99213

== ENCOUNTER → 2023-04-27 10:01 | Outpatient (BNVA) | payer MEDICARE, OTHER, SELFPAY | PROVIDERS: PCP Internal Medicine; Visit Provider Urology ==

== ENCOUNTER 2023-10-26 09:38 | Outpatient (AMB) | payer MEDICARE, OTHER, SELFPAY ==
--- NOTE | 2023-10-26 10:03 | A.OFFVIS_ITS ---
Intake Visit Reasons: 6m follow up Intake Note: Patient is Present for Follow Up Urology Medication: Tadalafil Antibiotic Allergies: None Blood Thinners: None Allergies No Known Allergies Allergy (Verified 10/26/23 10:08) Medication List - Last Reconciled 10/26/23 by Bill Mina MD acetaminophen 650 mg PO Q4H PRN amlodipine-benazepril 5-20 mg 1 cap PO DAILY budesonide-formoterol 160-4.5 mcg/actuation (Symbicort) 2 puffs inhalation BID PRN cetirizine (Zyrtec) 10 mg PO DAILY cholecalciferol (vitamin D3) (Vitamin D3) 50 mcg PO DAILY cyanocobalamin (vitamin B-12) (Vitamin B-12) 1,000 mcg PO DAILY diphenhydramine HCl 50 mg PO Q6H PRN fluticasone propionate 50 mcg/actuation 2 sprays intranasal BEDTIME imiquimod 2.5% 2.5 appl topical DAILY montelukast (Singulair) 10 mg PO BEDTIME multivitamin 1 cap PO DAILY ondansetron 4 mg PO Q6H prednisone 40 mg (2 x 20 mg) PO DAILY tadalafil (Cialis) 10 mg PO ONCE PRN 30 days tadalafil 5 mg PO DAILY 90 days HPI Comments Details: Donald is a pleasant male. 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 PDE-5 inhibitors indicate the encouraging useful effects by ischemia/reperfusion injury, myocar-dial infarction, cardiac hypertrophy, cardiomyopathy and systolic and diastolic congestive heart failure. Therefore, this and similar reviews can help for additional clinical targeting in the therapy of cardiovascular diseases. Developing bladder outlet obstruction with variable stream and occasional urgency Nephrolithiasis Prior small left lower pole stone Current therapy is hydration therapy with lemon Imaging - 12/06 renal ultrasound to 3 cm cyst on right side, no evidence of stones - 12/07 renal ultrasound 5 cm right side - 12/08 renal ultrasound 5 mm right side stable - radiology recommendation no further surveillance required - 12/09 renal ultrasound no evidence of stones Erectile dysfunction Response to on demand Cialis [facility] Medical History Carpal tunnel syndrome, left Gout Right bundle branch block (RBBB) with left anterior fascicular block MALIHA on CPAP Chronic ITP (idiopathic thrombocytopenic purpura) Malignant melanoma of skin of arm Basal cell carcinoma (BCC) in situ of skin Anemia Kidney stones Asthma Hypertension Surgical History Hx of cystoscopy Hx of lithotripsy Hx of colonoscopy History of hernia surgery H/O bilateral hip replacements Family History Father No problems noted. Mother No problems noted. Family/Other No problems noted. Sister Pancreatic cancer Social History Household Members: Spouse Housing: House Are you a primary sub acute care nurse to a significant other at home: No Do you presently have visiting nurse or other home services: No Alcohol intake: current Alcohol intake frequency: a few times a month Alcohol type: beer Patient Tobacco Use Status: Never used Tobacco service: No Current occupational status: retired Review of Systems Const Denies chills and Denies fever(s) Card Reports no additional complaints and Denies syncope Resp Denies cough GI Denies abdominal pain and Denies heartburn Reports as per HPI and Denies change in libido Neuro Denies syncope Psych Denies change in libido Endo Denies change in libido Physical Exam Const General: cooperative, healthy appearing, comfortable and no acute distress Orientation/consciousness: patient oriented x3 HEENT Face and sinus: Yes normal facial exam Mouth: moist mucous membranes Neck Neck: Yes normal visual inspection, Yes full ROM and Yes trachea midline Chest Chest palpation & inspection: normal inspection of the chest Resp Effort & Inspection: normal respiratory effort, able to speak in complete sentences and no respiratory distress GI Inspection: Yes normal to inspection Back/Spine/Pelvis Cervical Spine: normal cervical lordosis Thoracic/Lumbar Spine: thoracic and lumbar spine normal to inspection Skin General skin exam: no rashes or lesions noted Neuro General: patient oriented x3, gait normal, tone normal and moves all extremities Extrem General: Yes normal to inspection and Yes capillary refill normal Assessment & Plan Assessment & Plan (1) Bladder outlet obstruction: Code(s): N32.0 - Bladder-neck obstruction Category: Medical (2) Kidney stones: Code(s): N20.0 - Calculus of kidney Category: Medical (3) Erectile dysfunction due to arterial insufficiency: Code(s): N52.01 - Erectile dysfunction due to arterial insufficiency Category: Medical Plan Twelve month follow-up Patient Instructions: Imaging studies, laboratory and physical exam results were discussed and reviewed in detail. No major barriers to patient understanding were identified. An opportunity to ask questions regarding the treatment plan was provided. All questions were answered. The patient expressed understanding and agreement with the above treatment plan. The patient is aware they should contact our office by phone for worsening of their current condition or the appearance of new urologic symptoms. Compliance is encouraged with any medications and followup testing that is ordered. It is a privilege to participate in the urologic care of your patient. If you have any questions or concerns regarding treatment for the above conditions, or other urologic issues, please do not hesitate to contact me. The office telephone contact is [phone]. This note is constructed using voice recognition software. While every effort has been made to ensure accuracy ed tech errors may have been included. Yours sincerely, Dr Bill Mina MD, [facility] - Urology Providers of Expert, Compassionate Care for the Genitourinary System Coding Level of Care Code Est Pt Level 3 (49444) Diagnoses Bladder outlet obstruction N32.0 Kidney stones N20.0 Erectile dysfunction due to arterial insufficiency N52.01
== END 2023-10-26 10:30 | disposition home or self-care (01) ==
PROVIDERS: PCP Internal Medicine; Visit Provider Urology
DX: N32.0 Bladder-neck obstruction (principal); N20.0 Calculus of kidney; N52.01 Erectile dysfunction due to arterial insufficiency
CPT/HCPCS: 99213

== ENCOUNTER → 2023-10-26 09:38 | Outpatient (BNVA) | payer MEDICARE, OTHER, SELFPAY | PROVIDERS: PCP Internal Medicine; Visit Provider Urology | DX: N32.0 Bladder-neck obstruction (principal); N52.01 Erectile dysfunction due to arterial insufficiency; Z87.442 Personal history of urinary calculi | CPT/HCPCS: 99212 ==

== ENCOUNTER 2023-10-31 16:18 | Inpatient (IN) | payer MEDICARE, OTHER, SELFPAY ==
[2023-10-31] VITALS (12 sets, daily range): BP systolic 95–137; BP diastolic 55–82; PULSE 83–157; RESP 15–24; TEMP 36.8–37.2; O2SAT 93–98; BMI 46.6
--- NOTE | ~2023-10-31 | XR_ITS ---
EXAMINATION: XR CHEST CLINICAL INFORMATION: CHF COMPARISON: 08/14/2013 TECHNIQUE: Frontal view of the chest was obtained. FINDINGS: Compared to the prior study, the lungs are poorly less well expanded. There is some mild peribronchial cuffing. No gross upper zone redistribution. Mild prominence of interstitial markings seen at the right lung base. No pleural effusions are detected. XR/XR chest 1V IMPRESSION: Mild peribronchial cuffing and prominence of interstitial markings at the right lung base. No gross evidence of CHF.
--- NOTE | 2023-10-31 16:20 | ECG_ITS ---
Test Reason : CHEST PAIN Blood Pressure : / mmHG Vent. Rate : 150 BPM Atrial Rate : 000 BPM P-R Int : 000 ms QRS Dur : 130 ms QT Int : 278 ms P-R-T Axes : 000 -34 084 degrees QTc Int : 439 ms Atrial fibrillation with rapid ventricular response Left axis deviation Right bundle branch block Minimal voltage criteria for LVH, may be normal variant ( R in aVL ) Abnormal ECG When compared with ECG of 22-NOV-2012 11:53, Atrial fibrillation has replaced Sinus rhythm Vent. rate has increased BY 72 BPM T wave inversion now evident in Anterior leads Referred By: Generic ED Physician Electronically Signed By:SAPPHIRE GIRON MD
--- NOTE | 2023-10-31 16:33 | ED.ARRPALP ---
HPI - Arrhythmia/Palpitations General Chief Complaint: Dyspnea Stated Complaint: Chest pain, SOB, edema Time Seen by Provider: 10/31/23 16:33 Source: patient Mode of arrival: ambulatory Limitations: no limitations History of Present Illness HPI narrative: Patient's history of bifascicular block sleep apnea on CPAP at night previous coronary CTA 4 years ago was negative, hypertension, ITP recently had COVID 5 weeks ago was on prednisone tapering doses for last few days noticed funny feeling in the chest and increased shortness of breath and increased leg swelling patient called PCP who advised him to go to the ER in the ER and in the triage patient noticed to be in AFib with heart rate of 150 patient unaware of that, patient has gained about 15 lb in 4 weeks Related Data Home Medications ?Medication ?Instructions ?Recorded ?Confirmed cetirizine 10 mg capsule (Zyrtec) 10 mg PO DAILY 04/05/20 10/31/23 fluticasone propionate 50 2 spray intranasal BEDTIME 04/05/20 10/31/23 mcg/actuation nasal spray,suspension montelukast 10 mg tablet 10 mg PO BEDTIME 04/05/20 10/31/23 (Singulair) cholecalciferol (vitamin D3) 50 50 mcg PO DAILY 07/19/20 10/31/23 mcg (2,000 unit) tablet (Vitamin D3) amlodipine 5 mg-benazepril 20 mg 1 cap PO DAILY 09/30/21 10/31/23 capsule cyanocobalamin (vitamin B-12) 1,000 mcg PO DAILY 01/02/22 10/31/23 1,000 mcg tablet (Vitamin B-12) multivitamin 1 tab PO DAILY 10/31/23 10/31/23 Allergies Allergy/AdvReac Type Severity Reaction Status Date / Time No Known Allergies Allergy Verified 10/31/23 16:38 Review of Systems Review of Systems: Yes all other systems are reviewed and are negative PMFSH Past Medical History Medical History (Updated 11/01/23 @ 02:04 by Daquan Ragland MD) Carpal tunnel syndrome, left Gout Right bundle branch block (RBBB) with left anterior fascicular block MALIHA on CPAP Chronic ITP (idiopathic thrombocytopenic purpura) Malignant melanoma of skin of arm Basal cell carcinoma (BCC) in situ of skin Anemia Kidney stones Asthma Hypertension Surgical History Hx of cystoscopy Hx of lithotripsy Hx of colonoscopy History of hernia surgery H/O bilateral hip replacements Family History Family History Father No problems noted. Mother No problems noted. Family/Other No problems noted. Sister Pancreatic cancer Social History Social History Household Members: Spouse Housing: House Are you a primary urgent care physician assistant to a significant other at home: No Do you presently have visiting nurse or other home services: No Alcohol intake: current Alcohol intake frequency: a few times a month Alcohol type: beer Patient Tobacco Use Status: Never used Tobacco Smoked in Last 30 Days: No Use of substances other than those prescribed or required for medical reasons: No Advance Directives: No Advance Directives Information Provided: No Do you have a plan to hurt others: No Plan Nutrition Risks: No Nutritional Risk service: No Current occupational status: retired Physical Exam Vital Signs: Vital Signs: Last Vital Signs Temp 98.7 F 10/31/23 23:59 Pulse 92 10/31/23 23:59 Resp 16 10/31/23 23:59 BP 107/67 10/31/23 23:59 Pulse Ox 96 10/31/23 23:59 O2 Del Method CPAP 10/31/23 23:59 BMI result Body Mass Index 46.6 Appearance: Alert. Oriented X3. No acute distress. Eyes: PERRLA, No Nystagmus ENT: Pharynx normal. Oral Mucosa moist Neck: Normal inspection. Neck supple. CVS: Tachycardic irregularly irregular no murmur Pulses normal. Respiratory: No respiratory distress. Equal air entry bilateral, no wheezing/rales/rhonchi Abdomen: Soft and nontender. Bowel sounds are present, no mass palpable, no CVA tenderness Skin: Skin warm and dry. Normal skin color. Normal skin turgor. Extremities: 3+ lower extremity edema. No calf tenderness Neuro: Oriented X 3. No motor deficit. No sensory deficit.No cerebellar signs , cranial nerves II-XII intact Medications Administered Generic Name Dose Route Start Last Admin Trade Name Freq PRN Reason Stop Dose Admin Diltiazem HCl 125 mg/ Sodium 125 mls @ 0 mls/hr 10/31/23 17:45 11/01/23 00:11 Chloride IVCONT 0 mg/hr .Q0M CELY 0 mls/hr Titration Protocol Per Protocol Metoprolol Tartrate 25 mg 10/31/23 22:45 10/31/23 23:21 Metoprolol Tartrate 25 Mg Tablet PO 25 mg BID CELY Administration Protocol Montelukast Sodium 10 mg 10/31/23 21:00 10/31/23 21:54 Montelukast Sodium 10 Mg Tablet PO 10 mg BEDTIME CELY Administration Sodium Chloride 3 ml 11/01/23 00:00 11/01/23 00:10 0.9 % Sodium Chloride Flush 3 Ml Syringe IVFLUSH Not Given QSHIFT CELY Discontinued Medications Generic Name Dose Route Start Last Admin Trade Name Freq PRN Reason Stop Dose Admin Diltiazem HCl 20 mg 10/31/23 16:39 10/31/23 16:46 Diltiazem Hcl 50 Mg/10 Ml Vial IVPUSH 10/31/23 16:40 20 mg STAT STA Administration Medical Decision Making Medical Decision Making [facility] Narrative: Patient with new onset AFib for approximately few days patient does not feel tachycardic just feels funny feeling in the chest noted to be in AFib with heart rate of 150 responded to IV Cardizem still in AFib will start on Cardizem drip will admit patient. Unable to give anticoagulation as patient has ITP and platelet counts go very low Differential Diagnosis Differential Diagnoses: The differential diagnosis associated with the presentation includes ACS/cardiac arrhythmias/AFib Admission/Observation Consideration of admission/observation: Escalation of care including admission/observation considered Consult Healthcare Provider Management of the patient was discussed with: Hospitalist Lab Data [facility] Lab Attestation statement: I reviewed the patient's lab results. 10/31/23 16:43 10/31/23 16:43 Labs: Lab Results 10/31/23 Range/Units 16:43 WBC 5.9 (4.8-10.8) X10*3/uL RBC 4.27 L (4.60-5.80) X10*6/uL Hgb 13.4 L (14.0-18.0) g/dl Hct 39.8 L (42.0-52.0) % MCV 93.2 (80.0-98.0) fL MCH 31.4 (27.0-33.0) pg MCHC 33.7 (31.0-36.0) g/dl RDW 15.1 (11.0-16.0) % Plt Count 106 L (160-400) X10*3/uL MPV 10.8 (9.4-12.4) fL Immature Gran % (Auto) 0.5 H (0.0-0.4) % Neut % (Auto) 66.0 (45-73) % Lymph % (Auto) 23.3 (20-40) % [place] % (Auto) 8.3 (2-11) % Eos % (Auto) 1.4 (0-4) % Baso % (Auto) 0.5 (0-2) % Lymph # (Auto) 1.4 (1.2-4.9) X10*3/uL [place] # (Auto) 0.5 (0.1-1.2) X10*3/uL Eos # (Auto) 0.1 (0.0-0.4) X10*3/uL Baso # (Auto) 0.0 (0.0-0.2) X10*3/uL Abs Immat Gran (auto) 0.03 (0.00-0.03) X10*3/uL Absolute Neuts (auto) 3.9 (2.0-8.3) x10*3/uL Absolute Nucleated RBC 0.000 (0.0-0.012) X10*3/uL Nucleated RBC % (auto) 0.0 (0.0-0.2) /100WBC PT 12.3 (11.1-13.3) SEC INR 1.0 (0.9-1.1) APTT 35.8 (26.0-36.8) SEC Sodium 146 H (135-145) mmol/L Potassium 4.1 (3.3-5.1) mmol/L Chloride 109 H (96-108) mmol/L Carbon Dioxide 24 (22-29) mmol/L Anion Gap 17 (12-20) BUN 16 (9-16) mg/dL Creatinine 1.31 (0.5-1.4) mg/dL Estim Creat Clear Calc 76.2 Estimated GFR 54 Random Glucose 103 (60-115) mg/dL Calcium 9.8 (8.4-10.2) mg/dL Magnesium 1.8 (1.6-2.6) mg/dL Total Bilirubin 0.9 (0.0-1.0) mg/dL AST 18 (5-37) U/L ALT 19 (0-40) U/L Alkaline Phosphatase 47 (39-117) U/L Troponin I High Sens 8.0 (<3.5-35.0) ng/L B-Natriuretic Peptide 98 (<100) pg/mL Total Protein 6.7 (6.5-8.0) g/dL Albumin 3.9 (3.5-5.0) g/dL Independent Interpretation I performed an independent interpretation of an: EKG and Plain X-Ray Interpretation: Atrial fibrillation with rapid ventricular rate of 150 left axis deviation right bundle-branch block LVH no acute STT wave changes no acute ischemia Radiology Impression Discussion of test interpretation with radiology: I have reviewed the radiologist's reading. Critical Care Time Critical Care Time Critical Care Time: Yes Total Critical Care Time: 55 Attestation: The patient was critically ill with a high probability of imminent or life threatening deterioration. I spent greater than ?60?minutes of discontinuous time evaluating the patient,delivering critical care at the bedside, discussing and evaluating pertinent data with consultants. Critical care time does not include time spent performing separately billable procedures or teaching. Total time spent performing critical care was 55???minutes. Discharge Plan Discharge Clinical Impression: Atrial fibrillation with rapid ventricular response Patient Disposition: Admitted As Inpatient
--- NOTE | 2023-10-31 16:37 | MHC.EDTECH ---
THIS PCT JUST ASSUMED CARE OF PATIENT ,VITALS TAKEN ,PT WAS HOOKED UP TO [facility] ,AND VITALS TAKEN .
[2023-10-31] MEDS: dilTIAZem HCL 50 MG/10 ML VIAL 20 MG IVPUSH (16:46)
[2023-10-31 16:47] LABS: MANUAL DIFF FLAG NO
[2023-10-31 16:55] LABS: Prothrombin Time 12.3 SEC (11.1-13.3)
[2023-10-31 16:57] LABS: Partial Thromboplastin Time 35.8 SEC (26.0-36.8)
[2023-10-31 17:01] LABS: Basophils Percent Auto 0.5 % (0-2); Eosinophils Absolute Auto 0.1 X10*3/uL (0.0-0.4); Eosinophils Percent Auto 1.4 % (0-4); Hematocrit 39.8 % (42.0-52.0); Hemoglobin 13.4 g/dl (14.0-18.0); Imm Gran Abs Auto 0.03 X10*3/uL (0.00-0.03); Imm Gran Pct Auto 0.5 % (0.0-0.4); Lymphocytes Absolute Auto 1.4 X10*3/uL (1.2-4.9); Lymphocytes Percent Auto 23.3 % (20-40); Mean Corpuscular HGB Conc 33.7 g/dl (31.0-36.0); Mean Corpuscular Hemoglobin 31.4 pg (27.0-33.0); Mean Corpuscular Volume 93.2 fL (80.0-98.0); Mean Platelet Volume 10.8 fL (9.4-12.4); Monocytes Absolute Auto 0.5 X10*3/uL (0.1-1.2); Monocytes Percent Auto 8.3 % (2-11); Neutrophils Absolute Auto 3.9 x10*3/uL (2.0-8.3); Platelet Count 106 X10*3/uL (160-400); Red Blood Count 4.27 X10*6/uL (4.60-5.80); Red Cell Distribution Width 15.1 % (11.0-16.0); White Blood Count 5.9 X10*3/uL (4.8-10.8)
[2023-10-31 17:03] LABS: Alanine Aminotransferase 19 U/L (0-40); Albumin Level 3.9 g/dL (3.5-5.0); Alkaline Phosphatase 47 U/L (39-117); Anion Gap 17 (12-20); Aspartate Amino Transferase 18 U/L (5-37); Bilirubin Total 0.9 mg/dL (0.0-1.0); Blood Urea Nitrogen 16 mg/dL (9-16); Calcium 9.8 mg/dL (8.4-10.2); Carbon Dioxide 24 mmol/L (22-29); Chloride 109 mmol/L (96-108); Creatinine Clr Calc Pharmacy 76.2; Estimated Glomerular Filt Rate 54; Glucose Random 103 mg/dL (60-115); Magnesium 1.8 mg/dL (1.6-2.6); Potassium 4.1 mmol/L (3.3-5.1); Sodium 146 mmol/L (135-145); Total Protein 6.7 g/dL (6.5-8.0)
[2023-10-31 18:15] LABS: B Type Natriuretic Peptide 98 pg/mL (<100)
[2023-10-31] MEDS: dilTIAZem HCL 125 MG in 0.9 % Sodium Chloride 100 ML 10 MG IVCONT (18:46)
--- NOTE | 2023-10-31 19:47 | PHA.MEDREC ---
Pharmacy Consult ? Medication Reconciliation Pharmacy has completed the medication reconciliation.
--- NOTE | 2023-10-31 19:58 | P.HPHOSP_ITS ---
History of Present Illness Date of Service: 10/31/23 Attending physician on admission: Zehra Baltazar Chief Complaint: Shorntess of breath Donald Darling is a 68 years old man with past medical history significant for essential hypertension, obstructive sleep apnea on CPAP, ITP and asthma presents to the emergency department complaining of worsening shortness of breath over the last several weeks associated with minimal mid chest pleuritic pain. Shortness on breath is mostly on exertion. Pain does not radiate. He denies headache, dizziness, cough or palpitations. Denies fevers or chills. He also denied any acute gastrointestinal or genitourinary symptoms. He denied alcohol abuse, tobacco smoking, marijuana use or illicit drug use. He denies history of CHF. In the ED, he was found to have marked tachycardia consistent with AFib with rapid ventricular response. There is no fever or hypotension. O2 sats are normal on RA. Blood workup showed no leukocytosis. Hemoglobin is 13.4. Platelets level is 106. There is mild hypernatremia of 146. Creatinine is 1.31. LFTs, BNP and troponin are normal. CXR showed no evidence of CHF. ECG shows atrial fibrillation with rapid ventricular response, right bundle branch block, LVH changes without significant ischemic changes. ED tx: Diltiazem 20 mg IV, diltiazem IV infusion Review of Systems 2 Review of Systems: All 12 systems were reviewed and normal except as noted in HPI. [facility] Medical History (Updated 10/31/23 @ 20:40 by Zehra Baltazar MD) Carpal tunnel syndrome, left Gout Right bundle branch block (RBBB) with left anterior fascicular block MALIHA on CPAP Chronic ITP (idiopathic thrombocytopenic purpura) Malignant melanoma of skin of arm Basal cell carcinoma (BCC) in situ of skin Anemia Kidney stones Asthma Hypertension Family History Father No problems noted. Mother No problems noted. Family/Other No problems noted. Sister Pancreatic cancer Surgical History Hx of cystoscopy Hx of lithotripsy Hx of colonoscopy History of hernia surgery H/O bilateral hip replacements Social History Household Members: Spouse Housing: House Are you a primary manager managed care to a significant other at home: No Do you presently have visiting nurse or other home services: No Alcohol intake: current Alcohol intake frequency: a few times a month Alcohol type: beer Patient Tobacco Use Status: Never used Tobacco Advance Directives: No Advance Directives Information Provided: No Do you have a plan to hurt others: No Plan service: No Current occupational status: retired Meds Allergies Allergy/AdvReac Type Severity Reaction Status Date / Time No Known Allergies Allergy Verified 10/31/23 16:38 Active Medications: Current Medications Acetaminophen (Acetaminophen 325 Mg Tablet) 650 mg PO Q6H PRN PRN Reason: Fever Acetaminophen (Acetaminophen 325 Mg Tablet) 650 mg PO Q6H PRN PRN Reason: Pain, Mild (Pain Scale 1-3) Acetaminophen (Acetaminophen 325 Mg Tablet) 975 mg PO Q6H PRN PRN Reason: Headache Cyanocobalamin (Cyanocobalamin (Vitamin B-12) 1,000 Mcg Tablet) 1,000 mcg PO DAILY [facility] Fluticasone Propionate (Fluticasone Propionate Nasal 16 Gm [place]) 2 spray NOSTRIL-B BEDTIME [facility] Diltiazem HCl 125 mg/ Sodium (Chloride) 125 mls @ 0 mls/hr IVCONT .Q0M [facility]; Protocol Last Admin: 10/31/23 18:46 Dose: 10 mg/hr, 10 mls/hr Loratadine (Loratadine 10 Mg Tablet) 10 mg PO DAILY [facility] Melatonin (Melatonin 3 Mg Tablet) 6 mg PO BEDTIME PRN PRN Reason: Insomnia Montelukast Sodium (Montelukast Sodium 10 Mg Tablet) 10 mg PO BEDTIME [facility] Multivitamins/Vitamin C (Multivitamin Tablet) 1 tab PO DAILY [facility] Sodium Chloride (0.9 % Sodium Chloride Flush 3 Ml Syringe) 3 ml IVFLUSH QSHIFT [facility] Vitamin D (Cholecalciferol (Vitamin D3) 25 Mcg Tablet) 50 mcg PO DAILY [facility] Home Medications ?Medication ?Instructions ?Recorded ?Confirmed ?Last Taken ?Type cetirizine 10 mg capsule (Zyrtec) 10 mg PO DAILY 04/05/20 10/31/23 10/31/23 History fluticasone propionate 50 2 spray intranasal BEDTIME 04/05/20 10/31/23 10/30/23 History mcg/actuation nasal spray,suspension montelukast 10 mg tablet 10 mg PO BEDTIME 04/05/20 10/31/23 10/30/23 History (Singulair) cholecalciferol (vitamin D3) 50 50 mcg PO DAILY 07/19/20 10/31/23 10/31/23 History mcg (2,000 unit) tablet (Vitamin D3) amlodipine 5 mg-benazepril 20 mg 1 cap PO DAILY 09/30/21 10/31/23 10/31/23 History capsule cyanocobalamin (vitamin B-12) 1,000 mcg PO DAILY 01/02/22 10/31/23 10/31/23 History 1,000 mcg tablet (Vitamin B-12) multivitamin 1 tab PO DAILY 10/31/23 10/31/23 10/31/23 History Physical Exam 2 Vital Signs and Narrative: Vital Signs: Last Vital Signs Temp 98.5 F 10/31/23 18:01 Pulse 122 H 10/31/23 18:46 Resp 15 10/31/23 18:01 BP 131/55 L 10/31/23 18:46 Pulse Ox 98 10/31/23 18:01 O2 Del Method Room Air 10/31/23 18:01 BMI result Body Mass Index 46.6 Constitutional - Awake and Alert, No apparent distress. Pleasant. Cooperative. Obese. HEENT - Pupils equally round. Normal sclerae Heart - Tachycardia. Irregular rhythm. No murmur. Lungs - Normal lung expansion, Normal respiratory effort, No respiratory distress, CTA bilaterally Abdomen- Nonterdeness. Extremities - Bilateral pitting edema to the lower extremities. Musculoskeletal - Normal inspection, normal ROM Skin - Warm/Dry Neurological - Alert & oriented x3. No focal weakness grossly noted. Normal speech. Psychological - Appropriate affect Results Labs 10/31/23 16:43 10/31/23 16:43 Labs: Laboratory Results - last 24 hr 10/31/23 16:43 MCV 93.2 MCH 31.4 MCHC 33.7 RDW 15.1 Plt Count 106 L MPV 10.8 Immature Gran % (Auto) 0.5 H Neut % (Auto) 66.0 Lymph % (Auto) 23.3 [place] % (Auto) 8.3 Eos % (Auto) 1.4 Baso % (Auto) 0.5 Lymph # (Auto) 1.4 [place] # (Auto) 0.5 Eos # (Auto) 0.1 Baso # (Auto) 0.0 Abs Immat Gran (auto) 0.03 Absolute Neuts (auto) 3.9 Absolute Nucleated RBC 0.000 Nucleated RBC % (auto) 0.0 PT 12.3 INR 1.0 APTT 35.8 Anion Gap 17 Estim Creat Clear Calc 76.2 Estimated GFR 54 Random Glucose 103 Calcium 9.8 Magnesium 1.8 Total Bilirubin 0.9 AST 18 ALT 19 Alkaline Phosphatase 47 Troponin I High Sens 8.0 B-Natriuretic Peptide 98 Total Protein 6.7 Albumin 3.9 Imaging Radiologist's Impressions: Impressions Chest X-Ray 10/31/23 17:16 IMPRESSION: Mild peribronchial cuffing and prominence of interstitial markings at the right lung base. No gross evidence of CHF. Assessment and Plan (1) Atrial fibrillation with RVR: Status: Acute (2) Asthma: Qualifiers: Asthma severity: unspecified severity Asthma persistence: unspecified Asthma complication type: uncomplicated Qualified Code(s): J45.909 - Unspecified asthma, uncomplicated Status: Acute (3) Hypertension: Qualifiers: Hypertension type: primary hypertension Qualified Code(s): I10 - Essential (primary) hypertension Status: Acute (4) Obesity: Qualifiers: Obesity type: due to excess calories Obesity classification: adult class 3 (BMI >= 40) Body mass index: BMI 45.0-49.9 Serious obesity comorbidity presence: with serious comorbidity Qualified Code(s): E66.01 - Morbid (severe) obesity due to excess calories; Z68.42 - Body mass index [BMI] 45.0-49.9, adult Status: Acute (5) Chronic ITP (idiopathic thrombocytopenic purpura): Status: Acute (6) MALIHA on CPAP: Status: Acute Plan Donald Darling is a 68 years old man admitted with: * Atrial fibrillation with rapid ventricular response, new onset. Admit to telemetry. Continue diltiazem IV infusion. Patient will need to discuss with his board filler about the safe use of anticoagulation due to his underlying ITP. Obtain TTE. Cardiology consult. * Essential hypertension. On diltiazem infusion. Amlodipine-benazepril on hold to avoid hypotension. * Mild hypernatremia, 146. Encourage water ingestion. * ITP. Platelet level at baseline. Continue to monitor. * Obstructive sleep apnea. Nocturnal CPAP. * Asthma. Currently controlled. Continue montelukast and Flonase. * Obesity. BMI 46.6 kg/m2. Weight loss. Code status: Full DVT prophylaxis: SCDs. Early ambulation. Patient will need hospitalization for at least 2 midnights for AFib with RVR treatment with IV diltiazem. He will also need close monitoring of vital signs and evaluation by subspecialty. Quality Stroke Does the patient have a stroke diagnosis?: No VTE Prior VTE?: No VTE Risk Level:: Medical - moderate - high VTE Device Contraindication: N/A - Device Ordered VTE Drug Contraindication: Treatment Not Indicated
[2023-10-31] MEDS: Montelukast Sodium 10 MG TABLET PO (21:54)
[2023-10-31] MEDS: Metoprolol Tartrate 25 MG TABLET PO (23:21)
--- NOTE | 2023-10-31 23:47 | PC.NURSE ---
per MD, discontinued diltiazem drip, continue with PO metoprolol.
[2023-11-01] VITALS (11 sets, daily range): BP systolic 104–145; BP diastolic 57–96; PULSE 87–117; RESP 16–20; TEMP 36.1–36.6; O2SAT 90–99
--- NOTE | 2023-11-01 00:01 | MHC.EDTECH ---
0000 ROUNDING DONE ,VITALS TAKEN ,PATIENT AWAKE AND IN BED ,250 ML URINE EMPTY FROM URINAL ,CALL FREEMAN WITHIN PATIENT REACH .
--- NOTE | 2023-11-01 04:31 | MHC.EDTECH ---
0400 rounding done ,Patient awake vitals taken ,no apparent distress noted .
[2023-11-01 06:33] LABS: Hematocrit 36.9 % (42.0-52.0); Hemoglobin 12.2 g/dl (14.0-18.0); Mean Corpuscular HGB Conc 33.1 g/dl (31.0-36.0); Mean Corpuscular Hemoglobin 31.4 pg (27.0-33.0); Mean Corpuscular Volume 94.9 fL (80.0-98.0); Mean Platelet Volume 10.6 fL (9.4-12.4); Platelet Count 95 X10*3/uL (160-400); Red Blood Count 3.89 X10*6/uL (4.60-5.80); Red Cell Distribution Width 15.3 % (11.0-16.0); White Blood Count 5.1 X10*3/uL (4.8-10.8)
[2023-11-01 06:49] LABS: Anion Gap 15 (12-20); Blood Urea Nitrogen 14 mg/dL (9-16); Calcium 9.3 mg/dL (8.4-10.2); Carbon Dioxide 22 mmol/L (22-29); Chloride 111 mmol/L (96-108); Creatinine Clr Calc Pharmacy 87.6; Estimated Glomerular Filt Rate > 60; Glucose Random 94 mg/dL (60-115); Potassium 3.8 mmol/L (3.3-5.1); Sodium 144 mmol/L (135-145)
[2023-11-01] MEDS: Loratadine 10 MG TABLET PO (08:36)
[2023-11-01] MEDS: Metoprolol Tartrate 25 MG TABLET PO ×3 (08:36→22:21)
[2023-11-01] MEDS: Cholecalciferol (Vitamin D3) 25 MCG TABLET 50 MCG PO (08:37)
[2023-11-01] MEDS: Cyanocobalamin (Vitamin B-12) 1,000 MCG TABLET 1000 MCG PO (08:37)
[2023-11-01] MEDS: Multivitamin TABLET 1 TAB PO (08:37)
[2023-11-01] MEDS: 0.9 % Sodium Chloride Flush 3 ML SYRINGE IVFLUSH ×3 (08:38→22:22)
[2023-11-01 09:37] LABS: TSH reflex Free T4 1.32 uIU/mL (0.32-4.0)
--- NOTE | 2023-11-01 10:59 | PM.CNCAR ---
History of Present Illness History of Present Illness Date of Service: 11/01/23 Requesting physician: Elvira Stephens Consult reason: atrial fibrillation Chief complaint: atrial fibrillation with rvr Narrative: I was consulted to see Donald in cardiology consultation today for new onset atrial fibrillation with rapid ventricular response with new onset shortness of breath. He has a pleasant 68-year-old male with prior history of ITP, getting intermittent treatment for the same with good response, bifascicular block, nonobstructive CAD by coronary CTA, morbid obesity, obstructive sleep apnea on CPAP, asthma, hypertension. Patient said about 4 weeks ago he was getting symptoms of sinusitis. He was prescribed antibiotics for symptoms kept getting worse and he was subsequently diagnose with COVID which he treated without hospitalization. Since then he has been getting increasing symptoms of exertional shortness of breath that he was related to COVID infection. He then has notice some leg edema over the last few days. No clear history of orthopnea, PND. No exertional chest pain but says with exertion when he climbs a flight of stairs he feels mild pressure. This is the reason he had a stress test as well as ischemic evaluation in the past. However there is no prior history of atrial fibrillation. He does not feel symptoms of palpitation irregular heartbeat. No lightheadedness, syncope. Review of Systems Constitutional: Constitutional: Reports no additional constitutional complaints Cardiovascular: Cardiovascular: Denies chest pain, Denies leg edema, Denies lightheadedness, Denies Loss of Consciousness, Denies palpitations, Reports dyspnea on exertion and Denies orthopnea Respiratory: Respiratory: Reports no additional respiratory complaints and Reports dyspnea on exertion Gastrointestinal: Gastrointestinal: Reports no additional gastrointestinal complaints Genitourinary: Genitourinary: Reports no additional male genitourinary complaints Musculoskeletal: Musculoskeletal: Reports no additional musculoskeletal complaints Integumentary/Breasts: Skin/Breast: Reports system reviewed and no additional complaints, except as docu Psychiatric: Psychiatric: Reports no additional psychiatric complaints Endocrine: Endocrine: Reports no additional endocrine complaints and Denies palpitations PMFSH Past Medical History Medical History Carpal tunnel syndrome, left Gout Right bundle branch block (RBBB) with left anterior fascicular block MALIHA on CPAP Chronic ITP (idiopathic thrombocytopenic purpura) Malignant melanoma of skin of arm Basal cell carcinoma (BCC) in situ of skin Anemia Kidney stones Asthma Hypertension Family History Family History Father No problems noted. Mother No problems noted. Family/Other No problems noted. Sister Pancreatic cancer Surgical History Surgical History Hx of cystoscopy Hx of lithotripsy Hx of colonoscopy History of hernia surgery H/O bilateral hip replacements Social History Social History Household Members: Spouse Housing: House Are you a primary childcare aide to a significant other at home: No Do you presently have visiting nurse or other home services: No Alcohol intake: current Alcohol intake frequency: a few times a month Alcohol type: beer Patient Tobacco Use Status: Never used Tobacco Smoked in Last 30 Days: No Use of substances other than those prescribed or required for medical reasons: No Advance Directives: No Advance Directives Information Provided: No Do you have a plan to hurt others: No Plan Nutrition Risks: No Nutritional Risk service: No Current occupational status: retired [employer] Allergies Allergy/AdvReac Type Severity Reaction Status Date / Time No Known Allergies Allergy Verified 10/31/23 16:38 Active Medications: Current Medications Acetaminophen (Acetaminophen 325 Mg Tablet) 650 mg PO Q6H PRN PRN Reason: Fever, Mild Pain, Headache Cyanocobalamin (Cyanocobalamin (Vitamin B-12) 1,000 Mcg Tablet) 1,000 mcg PO DAILY [facility] Last Admin: 11/01/23 08:37 Dose: 1,000 mcg Fluticasone Propionate (Fluticasone Propionate Nasal 16 Gm [place]) 2 spray NOSTRIL-B BEDTIME [facility] Diltiazem HCl 125 mg/ Sodium (Chloride) 125 mls @ 0 mls/hr IVCONT .Q0M [facility]; Protocol Last Titration: 11/01/23 00:11 Dose: 0 mg/hr, 0 mls/hr Loratadine (Loratadine 10 Mg Tablet) 10 mg PO DAILY [facility] Last Admin: 11/01/23 08:36 Dose: 10 mg Melatonin (Melatonin 3 Mg Tablet) 6 mg PO BEDTIME PRN PRN Reason: Insomnia Metoprolol Tartrate (Metoprolol Tartrate 25 Mg Tablet) 25 mg PO Q8H [facility]; Protocol Montelukast Sodium (Montelukast Sodium 10 Mg Tablet) 10 mg PO BEDTIME [facility] Last Admin: 10/31/23 21:54 Dose: 10 mg Multivitamins/Vitamin C (Multivitamin Tablet) 1 tab PO DAILY [facility] Last Admin: 11/01/23 08:37 Dose: 1 tab Sodium Chloride (0.9 % Sodium Chloride Flush 3 Ml Syringe) 3 ml IVFLUSH QSHIFT [facility] Last Admin: 11/01/23 08:38 Dose: 3 ml Vitamin D (Cholecalciferol (Vitamin D3) 25 Mcg Tablet) 50 mcg PO DAILY [facility] Last Admin: 11/01/23 08:37 Dose: 50 mcg Home Medications ?Medication ?Instructions ?Recorded ?Confirmed ?Last Taken ?Type cetirizine 10 mg capsule (Zyrtec) 10 mg PO DAILY 04/05/20 10/31/23 10/31/23 History fluticasone propionate 50 2 spray intranasal BEDTIME 04/05/20 10/31/23 10/30/23 History mcg/actuation nasal spray,suspension montelukast 10 mg tablet 10 mg PO BEDTIME 04/05/20 10/31/23 10/30/23 History (Singulair) cholecalciferol (vitamin D3) 50 50 mcg PO DAILY 07/19/20 10/31/23 10/31/23 History mcg (2,000 unit) tablet (Vitamin D3) amlodipine 5 mg-benazepril 20 mg 1 cap PO DAILY 09/30/21 10/31/23 10/31/23 History capsule cyanocobalamin (vitamin B-12) 1,000 mcg PO DAILY 01/02/22 10/31/23 10/31/23 History 1,000 mcg tablet (Vitamin B-12) multivitamin 1 tab PO DAILY 10/31/23 10/31/23 10/31/23 History Physical Exam Vital Signs: Vital Signs: Last Vital Signs Temp 97.4 F 11/01/23 05:50 Pulse 107 H 11/01/23 08:41 Resp 18 11/01/23 08:41 BP 121/76 11/01/23 08:41 Pulse Ox 96 11/01/23 08:41 O2 Del Method CPAP 11/01/23 05:50 BMI result Body Mass Index 46.6 Const: General: cooperative, comfortable, no acute distress, alert, awake and Physically active Nutritional Appearance: obese Orientation/consciousness: patient oriented x3 Limitations: no limitations HEENT: Head: Yes normocephalic and Yes atraumatic Neck: Neck: Yes trachea midline, Yes supple and Yes JVD Resp: Effort & Inspection: normal respiratory effort Auscultation: clear to auscultation bilaterally Cardio: Jugular venous distension: JVD Rhythm: abnormal rhythm irregularly irregular Heart sounds: S1 normal heart sound present, S2 normal heart sound present, no click, no gallops, no murmurs and no rubs GI: Auscultation: normal bowel sounds Skin: General skin exam: no rashes or lesions noted Neuro: General: patient oriented x3 and no focal motor deficits Extrem: General: No clubbing, No cyanosis and Yes edema Objective Labs and Meds 11/01/23 06:17 11/01/23 06:17 Lab results: Laboratory Results - last 24 hr 10/31/23 11/01/23 16:43 06:17 WBC 5.9 5.1 RBC 4.27 L 3.89 L Hgb 13.4 L 12.2 L Hct 39.8 L 36.9 L MCV 93.2 94.9 MCH 31.4 31.4 MCHC 33.7 33.1 RDW 15.1 15.3 Plt Count 106 L 95 L MPV 10.8 10.6 Immature Gran % (Auto) 0.5 H Neut % (Auto) 66.0 Lymph % (Auto) 23.3 [place] % (Auto) 8.3 Eos % (Auto) 1.4 Baso % (Auto) 0.5 Lymph # (Auto) 1.4 [place] # (Auto) 0.5 Eos # (Auto) 0.1 Baso # (Auto) 0.0 Abs Immat Gran (auto) 0.03 Absolute Neuts (auto) 3.9 Absolute Nucleated RBC 0.000 0.000 Nucleated RBC % (auto) 0.0 0.0 PT 12.3 INR 1.0 APTT 35.8 Sodium 146 H 144 Potassium 4.1 3.8 Chloride 109 H 111 H Carbon Dioxide 24 22 Anion Gap 17 15 BUN 16 14 Creatinine 1.31 1.14 Estim Creat Clear Calc 76.2 87.6 Estimated GFR 54 > 60 Random Glucose 103 94 Calcium 9.8 9.3 Magnesium 1.8 Total Bilirubin 0.9 AST 18 ALT 19 Alkaline Phosphatase 47 Troponin I High Sens 8.0 B-Natriuretic Peptide 98 Total Protein 6.7 Albumin 3.9 TSH 1.32 EKG shows atrial fibrillation rapid ventricular response with right bundle-branch block and left anterior fascicular block Imaging Radiologist's impression: Impressions Chest X-Ray 10/31/23 17:16 IMPRESSION: Mild peribronchial cuffing and prominence of interstitial markings at the right lung base. No gross evidence of CHF. Assessment and Plan (1) Atrial fibrillation with rapid ventricular response: Status: Acute New onset atrial fibrillation rapid ventricular response in this elderly gentleman with multiple risk factors including hypertension, morbid obesity, obstructive sleep apnea with CHADSVASc score of at least 2. Clinically seems to be in mild heart failure with fluid overload. I would gently diurese him with Lasix 20 mg IV push b.i.d. to see if his symptoms improved. Although his BNP is normal this could be seen in patient with significant obesity. Rate control with metoprolol. Understanding his risk of underlying ITP his platelet count currently is about 100,000 his risk of bleeding is low and I would suggest to start Eliquis 5 mg b.i.d. and follow his platelet count closely. Will discuss with Hematology if his platelet count drops below 75 would consider repeat therapy to prevent further downtrending of his platelet count and avoid bleeding risk. Continue control blood pressure which is currently optimized. Strict intake and output chart needs to be pursued. Echocardiogram today to assess for LV systolic and diastolic function as well as biatrial chamber size and RV size and systolic function and valvular abnormality. If he remains significantly symptomatic by tomorrow and/or has difficulty in maintaining heart rate will pursue TIARA guided cardioversion. Please keep him NPO past midnight. Will follow with you Procedures Date of Service Date of Service: 11/01/23
--- NOTE | 2023-11-01 11:09 | HO.PM.IMPN ---
Subjective Subjective Date of Service: 11/01/23 Interval History: remains in AF with rate in 90s-110s exertional dyspnea swollen legs Review of Systems Review of Systems: Yes all other systems are reviewed and are negative Physical Exam Vital Signs: Vital Signs: Last Vital Signs Temp 97.4 F 11/01/23 05:50 Pulse 107 H 11/01/23 08:41 Resp 18 11/01/23 08:41 BP 121/76 11/01/23 08:41 Pulse Ox 96 11/01/23 08:41 O2 Del Method CPAP 11/01/23 05:50 BMI result Body Mass Index 46.6 Gen: in no acute distress HEENT: sclera anicteric, moist mucus membranes Neck: supple Lungs: clear to auscultation bilaterally Heart: irregular, fast, no murmurs Abd: soft, non-tender, non-distended, obese Ext: 1+ bilateral leg edema Skin: warm/well-perfused Neuro: alert and oriented x3, no focal findings Psych: appropriate affect Objective Data Active Medications Acetaminophen (Acetaminophen 325 Mg Tablet) 650 mg PO Q6H PRN PRN Reason: Fever, Mild Pain, Headache Cyanocobalamin (Cyanocobalamin (Vitamin B-12) 1,000 Mcg Tablet) 1,000 mcg PO DAILY [facility] Last Admin: 11/01/23 08:37 Dose: 1,000 mcg Documented By: KASSY Fluticasone Propionate (Fluticasone Propionate Nasal 16 Gm [place]) 2 spray NOSTRIL-B BEDTIME [facility] Diltiazem HCl 125 mg/ Sodium (Chloride) 125 mls @ 0 mls/hr IVCONT .Q0M [facility]; Protocol Last Titration: 11/01/23 00:11 Dose: 0 mg/hr, 0 mls/hr Documented By: JIHAN Loratadine (Loratadine 10 Mg Tablet) 10 mg PO DAILY [facility] Last Admin: 11/01/23 08:36 Dose: 10 mg Documented By: KASSY Melatonin (Melatonin 3 Mg Tablet) 6 mg PO BEDTIME PRN PRN Reason: Insomnia Metoprolol Tartrate (Metoprolol Tartrate 25 Mg Tablet) 25 mg PO Q8H [facility]; Protocol Montelukast Sodium (Montelukast Sodium 10 Mg Tablet) 10 mg PO BEDTIME [facility] Last Admin: 10/31/23 21:54 Dose: 10 mg Documented By: ADRI Multivitamins/Vitamin C (Multivitamin Tablet) 1 tab PO DAILY [facility] Last Admin: 11/01/23 08:37 Dose: 1 tab Documented By: KASSY Sodium Chloride (0.9 % Sodium Chloride Flush 3 Ml Syringe) 3 ml IVFLUSH QSHIFT [facility] Last Admin: 11/01/23 08:38 Dose: 3 ml Documented By: KASSY Vitamin D (Cholecalciferol (Vitamin D3) 25 Mcg Tablet) 50 mcg PO DAILY [facility] Last Admin: 11/01/23 08:37 Dose: 50 mcg Documented By: KASSY Labs 11/01/23 06:17 11/01/23 06:17 Labs: Laboratory Results - last 24 hr 10/31/23 11/01/23 16:43 06:17 MCV 93.2 94.9 MCH 31.4 31.4 MCHC 33.7 33.1 RDW 15.1 15.3 Plt Count 106 L 95 L MPV 10.8 10.6 Immature Gran % (Auto) 0.5 H Neut % (Auto) 66.0 Lymph % (Auto) 23.3 [place] % (Auto) 8.3 Eos % (Auto) 1.4 Baso % (Auto) 0.5 Lymph # (Auto) 1.4 [place] # (Auto) 0.5 Eos # (Auto) 0.1 Baso # (Auto) 0.0 Abs Immat Gran (auto) 0.03 Absolute Neuts (auto) 3.9 Absolute Nucleated RBC 0.000 0.000 Nucleated RBC % (auto) 0.0 0.0 PT 12.3 INR 1.0 APTT 35.8 Anion Gap 17 15 Estim Creat Clear Calc 76.2 87.6 Estimated GFR 54 > 60 Random Glucose 103 94 Calcium 9.8 9.3 Magnesium 1.8 Total Bilirubin 0.9 AST 18 ALT 19 Alkaline Phosphatase 47 Troponin I High Sens 8.0 B-Natriuretic Peptide 98 Total Protein 6.7 Albumin 3.9 TSH 1.32 Assessment and Plan (1) Atrial fibrillation with rapid ventricular response: Status: Acute Plan d2 68yo M with HTN, MALIHA on CPAP, chronic ITP, asthma, and morbid obesity presenting with progressive exertional dyspnea for the last few weeks, found to have AF/RVR AF/RVR - was on diltiazem IV gtt, now on metoprolol tartrate. Cardiology consultation + TTE. NPO after midnight in case needs TIARA-CV. - discuss safety of AC with hematology given ITP acute HF unknown EF - diurese with IV furosemide, monitor I/O + wt, BNP/BMP/Mg; TTE pending HTN - continue metoprolol [was on amlodipine-benazepril at home] ITP, chronic - Hematology consultation re: AC. When platelets drop, gets [place] MALIHA - CPAP at night mild intermittent asthma, not in acute exac - continue montelukast, prn albuterol morbid obesity - diet/exercise counseling VTE ppx - SCDs dispo - TBD In my clinical judgment, the patient requires continued inpatient hospitalization for the following reasons: diuresis, rate control Total time managing care of this patient today: 35 minutes. Quality Stroke Does the patient have a stroke diagnosis?: No VTE Prior VTE?: No VTE Risk Level:: Medical - moderate - high VTE Device Contraindication: N/A - Device Ordered VTE Drug Contraindication: Treatment Not Indicated
--- NOTE | 2023-11-01 12:22 | MHC.CM.PN ---
CM MET WITH PT AND AT BEDSIDE PT LIVES AT HOME AND IS INDEPENDENT WITH CARE HE HAS A CPAP FOR DME AND NO SERVICES PT HAS A HCP, COPY REQUESTED PCP: VILMA VALDERRAMA DCP: HOME NO SERVICES VIA PRIVATE TRANSPORT
[2023-11-01] MEDS: Furosemide 20 MG/2 ML VIAL IVPUSH ×2 (12:40→16:54)
--- NOTE | 2023-11-01 12:54 | PC.NURSE ---
18G in RAC infiltrated, IV line removed. new 20G placed in LAC.
[2023-11-01] MEDS: Metoprolol Tartrate 5 MG/5 ML VIAL IVPUSH ×2 (15:11→16:54)
[2023-11-01] MEDS: Acetaminophen 325 MG TABLET 650 MG PO (15:48)
--- NOTE | 2023-11-01 15:50 | PM.HEMONCCN ---
Subjective - Subjective Chief complaint: Consult for: ITP. New A. Fib. Patient: known to practice within the last 3 years Consult date: 11/01/23 Requesting Physician: Angelo. Primary Care Provider: Volodymyr Hogan MD Family Provider: Samira. Medical Summary: DIAGNOSIS: 1. ITP. 2. At. Fib. HPI - Consult Narrative Reason for consult: Consult for: 1. ITP. 2. AFib. Narrative: Donald Darling is a 68 year old gentleman who presented to the emergency department complaining of worsening shortness of breath over the last few weeks. This was associated with minimal mid chest pleuritic pain. Shortness on breath is mostly on exertion. Pain does not radiate. He denies headache, dizziness, cough or palpitations. Denies fevers or chills. He also denied any acute gastrointestinal or genitourinary symptoms. He denied alcohol abuse, tobacco smoking, marijuana use or illicit drug use. He denies history of CHF. There is no fever or hypotension. In the ED, he was found to have marked tachycardia consistent with AFib with rapid ventricular response. O2 sats are normal on RA. Blood workup showed no leukocytosis. Hemoglobin is 13.4. Platelets level is 106. Mild hypernatremia of 146. Creatinine is 1.31. LFTs, BNP and troponin are normal. CXR showed no evidence of CHF. ECG shows atrial fibrillation with rapid ventricular response, right bundle branch block, LVH changes without significant ischemic changes. ED tx: Diltiazem 20 mg IV, diltiazem IV infusion Review of Systems Review of Systems: All 12 systems were reviewed and normal except as noted in HPI. [facility] Medical History: Significant for: 1.Essential hypertension, 2. Obstructive sleep apnea on CPAP, 3. ITP. 4. Asthma Carpal tunnel syndrome, left Gout Right bundle branch block (RBBB) with left anterior fascicular block MALIHA on CPAP Chronic ITP (idiopathic thrombocytopenic purpura) Malignant melanoma of skin of arm Basal cell carcinoma (BCC) in situ of skin Anemia Kidney stones Family History: Father No problems noted. Mother No problems noted. Review of Systems - Constitutional Reports system reviewed and no additional complaints, except as documented, Reports lack of energy, Reports malaise, Denies weight loss - Eyes Reports system reviewed and no additional complaints, except as documented - ENT Reports system reviewed and no additional complaints, except as documented - Cardiovascular Reports system reviewed and no additional complaints, except as documented - Respiratory Reports no additional respiratory complaints, Reports dyspnea on exertion - Gastrointestinal Reports system reviewed and no additional complaints, except as documented - Genitourinary Genitourinary: Reports no additional male genitourinary complaints - Musculoskeletal Reports system reviewed and no additional complaints, except as documented - Integumentary/Breasts Skin/Breast: Reports no additional skin complaints - Neurologic Reports system reviewed and no additional complaints, except as documented - Psychiatric Reports system reviewed and no additional complaints, except as documented - Endocrine Reports no additional endocrine complaints - Hematologic/Lymphatic Reports system reviewed and no additional complaints, except as documented - Allergic/Immunologic Reports system reviewed and no additional complaints, except as documented Oncology Screenings - ECOG Performance Status ECOG Performance Status: 0 PMFSH Medical History: Medical History (Last Reviewed 11/01/23 @ 11:41 by Branden Gaston MD) Anemia Asthma Basal cell carcinoma (BCC) in situ of skin Carpal tunnel syndrome, left Chronic ITP (idiopathic thrombocytopenic purpura) Gout Hypertension Kidney stones Malignant melanoma of skin of arm MALIHA on CPAP Right bundle branch block (RBBB) with left anterior fascicular block Functional capacity: independent ambulation Patient : No Family History: Family History (Last Reviewed 11/01/23 @ 11:41 by Branden Gaston MD) Father No problems noted. Mother No problems noted. Family/Other No problems noted. Sister Pancreatic cancer Surgical History: Surgical History (Last Reviewed 11/01/23 @ 11:41 by Branden Gaston MD) H/O bilateral hip replacements History of hernia surgery Hx of colonoscopy Hx of cystoscopy Hx of lithotripsy Social History: Social History (Last Reviewed 11/01/23 @ 11:41 by Branden Gaston MD) Living Situation History: Household Members: Spouse Housing: House Are you a primary health care marketing manager to a significant other at home: No Do you presently have visiting nurse or other home services: No Tobacco History: Patient Tobacco Use Status: Never used Tobacco Occupation Assessmet: service: No Current occupational status: retired Home Medications and Allergies Current Medications: Current Medications Acetaminophen (Acetaminophen 325 Mg Tablet) 650 mg PO Q6H PRN PRN Reason: Fever, Mild Pain, Headache Albuterol Sulfate (Albuterol Sulfate (0.083%) 2.5 Mg/3 Ml Vial.Neb) 2.5 mg INHALE Q4H PRN PRN Reason: Shortness of Breath/Wheezing Cyanocobalamin (Cyanocobalamin (Vitamin B-12) 1,000 Mcg Tablet) 1,000 mcg PO DAILY [facility] Last Admin: 11/01/23 08:37 Dose: 1,000 mcg Fluticasone Propionate (Fluticasone Propionate Nasal 16 Gm [place]) 2 spray NOSTRIL-B BEDTIME [facility] Furosemide (Furosemide 20 Mg/2 Ml Vial) 20 mg IVPUSH BID@0900,1800 [facility]; Protocol Diltiazem HCl 125 mg/ Sodium (Chloride) 125 mls @ 0 mls/hr IVCONT .Q0M [facility]; Protocol Last Titration: 11/01/23 00:11 Dose: 0 mg/hr, 0 mls/hr Loratadine (Loratadine 10 Mg Tablet) 10 mg PO DAILY [facility] Last Admin: 11/01/23 08:36 Dose: 10 mg Melatonin (Melatonin 3 Mg Tablet) 6 mg PO BEDTIME PRN PRN Reason: Insomnia Metoprolol Tartrate (Metoprolol Tartrate 25 Mg Tablet) 25 mg PO Q6H [facility]; Protocol Montelukast Sodium (Montelukast Sodium 10 Mg Tablet) 10 mg PO BEDTIME [facility] Last Admin: 10/31/23 21:54 Dose: 10 mg Multivitamins/Vitamin C (Multivitamin Tablet) 1 tab PO DAILY [facility] Last Admin: 11/01/23 08:37 Dose: 1 tab Sodium Chloride (0.9 % Sodium Chloride Flush 3 Ml Syringe) 3 ml IVFLUSH [facility] Last Admin: 11/01/23 08:38 Dose: 3 ml Vitamin D (Cholecalciferol (Vitamin D3) 25 Mcg Tablet) 50 mcg PO DAILY [facility] Last Admin: 11/01/23 08:37 Dose: 50 mcg Home Medications ?Medication ?Instructions ?Recorded ?Confirmed ?Type cetirizine 10 mg capsule (Zyrtec) 10 mg PO DAILY 04/05/20 10/31/23 History fluticasone propionate 50 2 spray intranasal BEDTIME 04/05/20 10/31/23 History mcg/actuation nasal spray,suspension montelukast 10 mg tablet 10 mg PO BEDTIME 04/05/20 10/31/23 History (Singulair) cholecalciferol (vitamin D3) 50 50 mcg PO DAILY 07/19/20 10/31/23 History mcg (2,000 unit) tablet (Vitamin D3) cyanocobalamin (vitamin B-12) 1,000 mcg PO DAILY 01/02/22 10/31/23 History 1,000 mcg tablet (Vitamin B-12) multivitamin 1 tab PO DAILY 10/31/23 10/31/23 History Allergies Allergy/AdvReac Type Severity Reaction Status Date / Time No Known Allergies Allergy Verified 10/31/23 16:38 Physical Exam Vital signs: Vital Signs Temp 97.4 F 11/01/23 05:50 Pulse 117 H 11/01/23 12:52 Resp 18 11/01/23 12:52 BP 119/89 11/01/23 12:40 Pulse Ox 99 11/01/23 12:52 O2 Del Method Room Air 11/01/23 12:52 Intake & Output 10/31/23 11/01/23 11/01/23 18:59 06:59 18:59 Intake Total 301.833 / 301.833 Output Total 1050 / 1050 250 / 250 Balance -748.167 / -748.167 -250 / -250 Urine Output (Average ml/kg/hr) 0.59 0.14 Intake: Intake, Oral Amount 240 / 240 Intake, IV Amount 61.833 / 61.833 dilTIAZem HCL 125 mg In 0.9 % 61.833 / 61.833 Sodium Chloride 100 ml @ Per Protocol IVCONT .Q0M [facility] Rx#: [id number] Output: Output, Urine Amount 1050 / 1050 250 / 250 Other: Dinner % Eaten 100% Urine Urinal Urine Color Yellow Last Bowel Movement 11/01/23 Weight 147.3 kg Weight 147.3 kg - Constitutional Present: mild distress - Routine HEENT Exam Head: Present: normal inspection ENT: Present: mucous membranes moist - Routine Respiratory Exam Present: decreased breath sounds - Routine Cardiovascular Exam Cardiovascular: Present: RRR, S1, S2, irregularly irregular - Routine Abdominal Exam Present: soft, nontender - Routine Skin Exam Present: intact, normal turgor - Routine Neurological Exam Present: alert, oriented X3 Hem/Onc Consult Result - Labs CBC & Chem 7: 11/04/23 07:20 11/04/23 07:20 Labs: Short CBC 10/31/23 11/01/23 Range/Units 16:43 06:17 WBC 5.9 5.1 (4.8-10.8) X10*3/uL Hgb 13.4 L 12.2 L (14.0-18.0) g/dl Hct 39.8 L 36.9 L (42.0-52.0) % Plt Count 106 L 95 L (160-400) X10*3/uL BMP 10/31/23 11/01/23 16:43 06:17 Sodium 146 H 144 Potassium 4.1 3.8 Chloride 109 H 111 H Carbon Dioxide 24 22 BUN 16 14 Creatinine 1.31 1.14 Calcium 9.8 9.3 Liver Function 10/31/23 Range/Units 16:43 Total Bilirubin 0.9 (0.0-1.0) mg/dL AST 18 (5-37) U/L ALT 19 (0-40) U/L Alkaline Phosphatase 47 (39-117) U/L Albumin 3.9 (3.5-5.0) g/dL Assessment and Plan Patient Active problem list reviewed?: Yes (1) Chronic ITP (idiopathic thrombocytopenic purpura) Problem details: last WinRho treatment 01/04/2022 Status: Acute Assessment and plan: This is a pleasant 68 year-old gentleman, with H/O ITP. He has been on WinRho, since August 29, 2006. He was actually initially seen here in a June of 2004. He has remained stable on WinRho. He usually requires that every 8 weeks or so. His platelet count on 06/20/21: 175. He recieved his WinRho dose, on June 07, and before that was February 24 2020. In the past, we have talked about rituximab and splenectomy, as an option for his ITP. However he does not wish to change the treatment: he says he does not want to rock the boat, at this time. He would like to continue on the WinRho as long as it works and he he is tolerating it. Serial platelet count: 128/103/101/113/104. He he has done very well. His platelet count responds very nicely to it. He has not required prednisone, since January 06. He is tolerating the WinRho well. He had actually gone 4 months, without requiring it. He received it on 07/05/2022. And then on 02/15/2023. His last infusion interval was 16 weeks. Last WinRho was 09/10/23, before that was on 05/17. Platelet yesterday: 106. Platelet count today: 95. He now presents with new onset AFib. He is being treated for congestive heart failure. Question is about anticoagulation. PLAN: At this point his platelet count is reasonable close to 100,000. He can be given Eliquis 5 mg b.i.d. without the loading dose. Will monitor platelets carefully. Would be inclined to retreat with WinRHo, if platelet count falls to less than 50. Alternative would be to treat him with steroids. Platelets on 11/03: 152. He will return to oncology clinic on 12/05, for labs. If plts drop, will arrange for WhinRHo next week. Thank you for the consult. I will follow along with you, CC: - Time Spent With Patient Time Spent with Patient (in minutes): 30
[2023-11-01] MEDS: Montelukast Sodium 10 MG TABLET PO (22:20)
[2023-11-01] MEDS: Apixaban 5 MG TABLET PO (22:20)
[2023-11-01] MEDS: Melatonin 3 MG TABLET 6 MG PO (22:21)
[2023-11-02] VITALS (8 sets, daily range): BP systolic 113–140; BP diastolic 53–93; PULSE 89–130; RESP 16–20; TEMP 36.1–36.9; O2SAT 92–97
[2023-11-02] MEDS: Metoprolol Tartrate 25 MG TABLET PO ×2 (04:09→08:40)
[2023-11-02 06:58] LABS: Hematocrit 40.3 % (42.0-52.0); Hemoglobin 13.4 g/dl (14.0-18.0); Mean Corpuscular HGB Conc 33.3 g/dl (31.0-36.0); Mean Corpuscular Hemoglobin 31.3 pg (27.0-33.0); Mean Corpuscular Volume 94.2 fL (80.0-98.0); Mean Platelet Volume 11.3 fL (9.4-12.4); Platelet Count 107 X10*3/uL (160-400); Red Blood Count 4.28 X10*6/uL (4.60-5.80); Red Cell Distribution Width 14.9 % (11.0-16.0); White Blood Count 6.3 X10*3/uL (4.8-10.8)
--- NOTE | 2023-11-02 07:00 | CA_ITS ---
Transthoracic Echocardiogram Patient (Last, First, Middle): Donald Darling E Gender: Male Date of : 1955 Age: 68 Procedure Date: 11/02/2023 Procedure Type: Transthoracic Echocardiogram Location: [facility] [place] Height: 177.8 cm Weight: 146.97 kg BSA: 2.56 m2 Heart Rate: bpm BP: 116 / 53 mmHg Shipping Hand: Referring MD: Elvira Stephens MD Wood Crafter: Branden Gaston MD Symptoms: AF CHF Study Quality: Adequate ECG Rhythm: Atrial Fibrillation Conclusions: - 1. Moderate to severe LV systolic dysfunction with LVEF of 30 35% with mild LVH 2. Moderately dilated left atrium 3. Normal cardiac valvular Doppler 4. Normal RV systolic pressure 5. No gross pericardial effusion Findings Left Ventricle Normal left ventricular cavity size. There is mildly increased left ventricular wall thickness. The left ventricular systolic function is moderate to severely decreased. The visually estimated ejection fraction is between 30-35%. Right Ventricle Normal right ventricular cavity size and systolic function. Atria The left atrium is moderately dilated. There is no evidence of interatrial shunt. The right atrium is mildly dilated. Aortic Valve Normal aortic valve structure and function. There is no aortic valve stenosis. There is no aortic valve regurgitation. Mitral Valve Likely normal mitral valve structure and function. There is trace mitral valve regurgitation. There is no mitral valve stenosis. Pulmonic Valve The pulmonic valve is likely normal. There is trace pulmonic valve regurgitation. Tricuspid Valve Normal tricuspid valve structure. There is mild tricuspid valve regurgitation. The right ventricular systolic pressure is normal. The right ventricular systolic pressure is 26 mmHg. Normal right atrial pressure. There is no evidence of pulmonary hypertension. Great Vessels All visible segments of the aorta are normal in size. The pulmonary artery was not well visualized. There is no dilatation of the ascending aorta measuring 3.50 cm. Venous The inferior vena cava is normal in size and collapses greater than 50% with inspiration. Pericardium/Pleural There is no evidence of pericardial effusion. Measurements 2D Linear Measurements IVSd: 1.21 0.6-0.9/0.6-1.0 cm LVIDd: 5.80 3.9-5.3/4.2-5.9 cm LVIDd Index: 2.27 2.4-3.2/2.2-3.1 cm/m2 LVIDs: 4.62 2.0-3.6 cm LVPWd: 1.22 0.7-1.1 cm Ao Root: 3.40 2.1-3.5 cm LA Diam: 4.40 2.7-3.8/3.0-4.0 cm LAIDs Index: 1.72 1.5-2.3 cm/m2 LV Mass: 376.82 67-162/88-224 g LV Mass Index: 147.20 43-95/49-115 g/m2 LVOT Diam: 2.40 3.0+(-)1.3 cm 2D Systolic Function EF 4C: 37.20 >55% EF 2C: 25.10 >55% EF BiP: 31.80 >55% Mitral Valve MV Pk E: 0.76 MV Decel Time: 255.00 E'Lateral: 13.40 E'Medial: 9.57 E/E' Med: 8.00 E/E' Lat: 5.70 PHT: 75.00 MVA PHT: 2.93 Decel Stevens: 2.99 Aortic Valve AoV Pk Demetrio: 1.97 AoV Mn Demetrio: 1.30 AoV VTI: 0.34 AoV Pk Grad: 16.00 Aov Mn Grad: 8.00 BLAZE Cont.VTI: 1.90 LVOT LVOT Pk Demetrio: 0.77 LVOT Mn Demetrio: 0.51 LVOT VTI: 0.14 LVOT Pk Grad: 2.00 LVOT Mn Grad: 1.00 LVOT Diam: 2.40 LVOT Area: 4.52 Diastolic Function MV Pk E: 0.76 E'Medial: 9.57 E/E' Med: 8.00 E' Laterial: 13.40 E/E' Lat: 5.70 Right Ventricle TAPSE (mm): 20.00 TVS' Demetrio: 11.00 Tricuspid Valve TR Pk Demetrio: 2.10 TR Pk Grad: 18.00 RA Press: 8.00 RVSP: 26.00 Great Vessels Aorta Ao Root-2D: 3.40 2.0-3.7 cm Ao Asc: 3.50 2.1-3.4 cm Pulmonary Valve PV Pk Demetrio: 0.66 Peak PV Grad: 2.00 Updated in Other Vendor System with Status of Final Branden Gaston MD electronically signed on 11/02/2023 4:14:10 PM with status of Final
[2023-11-02 07:20] LABS: Anion Gap 16 (12-20); Blood Urea Nitrogen 18 mg/dL (9-16); Calcium 9.6 mg/dL (8.4-10.2); Carbon Dioxide 27 mmol/L (22-29); Chloride 105 mmol/L (96-108); Creatinine Clr Calc Pharmacy 79.8; Estimated Glomerular Filt Rate 57; Glucose Random 93 mg/dL (60-115); Magnesium 1.8 mg/dL (1.6-2.6); Potassium 4.1 mmol/L (3.3-5.1); Sodium 144 mmol/L (135-145)
[2023-11-02 07:38] LABS: B Type Natriuretic Peptide 122 pg/mL (<100)
[2023-11-02] MEDS: 0.9 % Sodium Chloride Flush 3 ML SYRINGE IVFLUSH ×3 (08:39→20:19)
[2023-11-02] MEDS: Metoprolol Tartrate 5 MG/5 ML VIAL IVPUSH ×3 (08:39→22:01)
[2023-11-02] MEDS: Furosemide 20 MG/2 ML VIAL IVPUSH ×2 (08:40→17:30)
[2023-11-02] MEDS: Apixaban 5 MG TABLET PO ×2 (08:43→20:19)
--- NOTE | 2023-11-02 10:19 | MHC.CM.PN ---
EMR REVIEWED, PER HOSPITALIST PLAN FOR CARDIOVERSION AND PT WILL LIKELY DC TOMORROW 11/02, CM WILL CONT TO FOLLOW DC NEEDS.
--- NOTE | 2023-11-02 11:17 | PM.PNCARD ---
Subjective Subjective Date of Service: 11/02/23 Principal diagnosis: Atrial fibrillation, CHF, Interval history: Patient says he has been diuresing. His heart rate remains borderline controlled. Today was elevated in the morning. Echocardiogram bedside preliminary LV ejection fraction 35%. Will need to reviewed completely. Seen by Hematology and okay by them to use oral anticoagulation therapy. Review of Systems Constitutional: Reports no additional constitutional complaints Cardiovascular: Denies chest pain, Reports leg edema, Denies lightheadedness, Denies Loss of Consciousness, Denies palpitations and Reports dyspnea on exertion Respiratory: Reports no additional respiratory complaints and Reports dyspnea on exertion Genitourinary: Reports no additional male genitourinary complaints Endocrine: Denies palpitations Physical Exam Vital Signs: Last Vital Signs Temp 97.1 F 11/02/23 07:37 Pulse 89 11/02/23 07:37 Resp 18 11/02/23 07:37 BP 136/81 11/02/23 07:37 Pulse Ox 95 11/02/23 07:37 O2 Del Method Room Air 11/02/23 07:37 BMI result Body Mass Index 46.6 Const General: cooperative, comfortable, no acute distress, alert, awake and Physically active Nutritional Appearance: obese Orientation/consciousness: patient oriented x3 Limitations: no limitations HEENT Head: Yes normocephalic and Yes atraumatic Neck Neck: Yes trachea midline, Yes supple and Yes JVD Resp Effort & Inspection: normal respiratory effort Auscultation: clear to auscultation bilaterally Cardio Jugular venous distension: JVD Rhythm: abnormal rhythm irregularly irregular Heart sounds: S1 normal heart sound present, S2 normal heart sound present, no click, no gallops, no murmurs and no rubs GI Auscultation: normal bowel sounds Skin General skin exam: no rashes or lesions noted Neuro General: patient oriented x3 and no focal motor deficits Extrem General: No clubbing, No cyanosis and Yes edema Objective Labs and Meds 11/02/23 05:54 11/02/23 05:54 Lab results: Laboratory Results - last 24 hr 11/02/23 05:54 WBC 6.3 RBC 4.28 L Hgb 13.4 L Hct 40.3 L MCV 94.2 MCH 31.3 MCHC 33.3 RDW 14.9 Plt Count 107 L MPV 11.3 Absolute Nucleated RBC 0.000 Nucleated RBC % (auto) 0.0 Sodium 144 Potassium 4.1 Chloride 105 Carbon Dioxide 27 Anion Gap 16 BUN 18 H Creatinine 1.25 Estim Creat Clear Calc 79.8 Estimated GFR 57 Random Glucose 93 Calcium 9.6 Magnesium 1.8 B-Natriuretic Peptide 122 H Progress Note: A&P Assessment and plan (1) Atrial fibrillation with rapid ventricular response: Status: Acute Assessment and Plan: Atrial fibrillation rapid ventricular response with symptoms of shortness of breath and mild congestive heart failure. See below. Continue maximize metoprolol therapy. Given echo finding of reduced LV ejection fraction I think patient would benefit from more urgent TIARA guided cardioversion. Will therefore schedule him for tomorrow morning for TIARA guided cardioversion. The need for TIARA prior to cardioversion as well as synchronized cardioversion was discussed. The risks, benefits, alternatives were discussed. He and his understand and agree. Continue maximize metoprolol therapy for now. Keep him NPO past midnight. Continue full oral anticoagulation with Eliquis. Will most likely require antiarrhythmic drug support. (2) CHF exacerbation: Status: Acute Assessment and Plan: Mild CHF exacerbation predominantly right-sided findings on clinical exam. Continue IV diuresis. Continue monitor strict intake and output chart. Will continue to follow with you Time Spent With Patient Time: Total time managing care of this patient today ____ minutes. Progress Note: Quality Stroke Does the patient have a stroke diagnosis?: No Procedures Date of Service Date of Service: 11/02/23
[2023-11-02] MEDS: Metoprolol Tartrate 12.5 MG HALFTAB 37.5 MG PO (14:20)
[2023-11-02] MEDS: Acetaminophen 325 MG TABLET 650 MG PO (14:24)
--- NOTE | 2023-11-02 15:22 | HO.PM.IMPN ---
Subjective Subjective Date of Service: 11/02/23 Interval History: remains in AF/RVR, rate 110s-120s legs swollen Review of Systems Review of Systems: Yes all other systems are reviewed and are negative Physical Exam Vital Signs: Vital Signs: Last Vital Signs Temp 97.0 F 11/02/23 11:50 Pulse 89 11/02/23 11:50 Resp 18 11/02/23 11:50 BP 140/93 H 11/02/23 11:50 Pulse Ox 95 11/02/23 11:50 O2 Del Method Room Air 11/02/23 11:50 BMI result Body Mass Index 46.6 Gen: in no acute distress HEENT: sclera anicteric, moist mucus membranes Neck: supple Lungs: clear to auscultation bilaterally Heart: rapid, irregular, no murmurs Abd: soft, non-tender, non-distended Ext: 1+ pitting BLE edema Skin: warm/well-perfused Neuro: alert and oriented x3, no focal findings Psych: appropriate affect Objective Data Active Medications Acetaminophen (Acetaminophen 325 Mg Tablet) 650 mg PO Q6H PRN PRN Reason: Fever, Mild Pain, Headache Last Admin: 11/02/23 14:24 Dose: 650 mg Documented By: KULWINDER Albuterol Sulfate (Albuterol Sulfate (0.083%) 2.5 Mg/3 Ml Vial.Neb) 2.5 mg INHALE Q4H PRN PRN Reason: Shortness of Breath/Wheezing Apixaban (Apixaban 5 Mg Tablet) 5 mg PO BID [facility] Last Admin: 11/02/23 08:43 Dose: 5 mg Documented By: KULWINDER Cyanocobalamin (Cyanocobalamin (Vitamin B-12) 1,000 Mcg Tablet) 1,000 mcg PO DAILY [facility] Last Admin: 11/02/23 08:43 Dose: Not Given Documented By: KULWINDER Non-Admin Reason: Patient Refused Fluticasone Propionate (Fluticasone Propionate Nasal 16 Gm [place]) 2 spray NOSTRIL-B BEDTIME [facility] Last Admin: 11/01/23 22:22 Dose: Not Given Documented By: HUMBERTO Non-Admin Reason: Patient Refused Furosemide (Furosemide 20 Mg/2 Ml Vial) 20 mg IVPUSH BID@0900,1800 [facility]; Protocol Last Admin: 11/02/23 08:40 Dose: 20 mg Documented By: KULWINDER Diltiazem HCl 125 mg/ Sodium (Chloride) 125 mls @ 0 mls/hr IVCONT .Q0M [facility]; Protocol Last Titration: 11/02/23 14:27 Dose: Infused Documented By: MACK Loratadine (Loratadine 10 Mg Tablet) 10 mg PO DAILY [facility] Last Admin: 11/02/23 08:44 Dose: Not Given Documented By: KULWINDER Non-Admin Reason: Patient Refused Melatonin (Melatonin 3 Mg Tablet) 6 mg PO BEDTIME PRN PRN Reason: Insomnia Last Admin: 11/01/23 22:21 Dose: 6 mg Documented By: HUMBERTO Metoprolol Tartrate (Metoprolol Tartrate 5 Mg/5 Ml Vial) 5 mg IVPUSH Q6H PRN; Protocol PRN Reason: HR>120 Last Admin: 11/02/23 08:39 Dose: 5 mg Documented By: KULWINDER Metoprolol Tartrate (Metoprolol Tartrate 12.5 Mg Halftab) 37.5 mg PO Q6H [facility]; Protocol Last Admin: 11/02/23 14:20 Dose: 37.5 mg Documented By: KULWINDER Montelukast Sodium (Montelukast Sodium 10 Mg Tablet) 10 mg PO BEDTIME [facility] Last Admin: 11/01/23 22:20 Dose: 10 mg Documented By: HUMBERTO Multivitamins/Vitamin C (Multivitamin Tablet) 1 tab PO DAILY [facility] Last Admin: 11/02/23 08:44 Dose: Not Given Documented By: KULWINDER Non-Admin Reason: Patient Refused Sodium Chloride (0.9 % Sodium Chloride Flush 3 Ml Syringe) 3 ml IVFLUSH QSHIFT [facility] Last Admin: 11/02/23 08:39 Dose: 3 ml Documented By: KULWINDER Vitamin D (Cholecalciferol (Vitamin D3) 25 Mcg Tablet) 50 mcg PO DAILY [facility] Last Admin: 11/02/23 08:43 Dose: Not Given Documented By: KULWINDER Non-Admin Reason: Patient Refused Labs 11/02/23 05:54 11/02/23 05:54 Labs: Laboratory Results - last 24 hr 11/02/23 05:54 MCV 94.2 MCH 31.3 MCHC 33.3 RDW 14.9 Plt Count 107 L MPV 11.3 Absolute Nucleated RBC 0.000 Nucleated RBC % (auto) 0.0 Anion Gap 16 Estim Creat Clear Calc 79.8 Estimated GFR 57 Random Glucose 93 Calcium 9.6 Magnesium 1.8 B-Natriuretic Peptide 122 H Assessment and Plan (1) Atrial fibrillation with rapid ventricular response: Status: Acute Plan d3 68yo M with HTN, MALIHA on CPAP, chronic ITP, asthma, and morbid obesity presenting with progressive exertional dyspnea for the last few weeks, found to have AF/RVR AF/RVR - was on diltiazem IV gtt, now on metoprolol succinate [plus prn IV metoprolol tartrate]. Cardiology following. NPO after midnight for planned TIARA-CV tomorrow. - Hematology consulted re ITP, OK to start Eliquis with close platelet count monitoring acute HFrEF [35% on preliminary read] - continue diurese with IV furosemide, monitor I/O [negative 1L thus far] + wt, BNP/BMP/Mg; TTE formal read pending HTN - continue metoprolol succinate [was on amlodipine-benazepril at home] ITP, chronic - monitor platelets; gets WinRho when platelets drop; follwoed by Dr Rosenthal MALIHA - CPAP at night mild intermittent asthma, not in acute exac - continue montelukast, prn albuterol morbid obesity - diet/exercise counseling VTE ppx - SCDs dispo - TBD In my clinical judgment, the patient requires continued inpatient hospitalization for the following reasons: diuresis, rate control Total time managing care of this patient today: 45 minutes. Quality Stroke Does the patient have a stroke diagnosis?: No VTE Prior VTE?: No VTE Risk Level:: Medical - moderate - high VTE Device Contraindication: N/A - Device Ordered VTE Drug Contraindication: Treatment Not Indicated
[2023-11-02] MEDS: Metoprolol Succinate ER 25 MG TAB.ER.24H 75 MG PO (20:18)
[2023-11-02] MEDS: Montelukast Sodium 10 MG TABLET PO (20:18)
[2023-11-03] VITALS (12 sets, daily range): BP systolic 112–139; BP diastolic 62–84; PULSE 72–114; RESP 16–19; TEMP 36.1–36.8; O2SAT 94–98
--- NOTE | 2023-11-03 | ECG_ITS ---
Test Reason : s/p cardioversion Blood Pressure : / mmHG Vent. Rate : 094 BPM Atrial Rate : 094 BPM P-R Int : 168 ms QRS Dur : 142 ms QT Int : 380 ms P-R-T Axes : 040 -41 027 degrees QTc Int : 475 ms Normal sinus rhythm Left axis deviation Right bundle branch block Minimal voltage criteria for LVH, may be normal variant ( R in aVL ) Abnormal ECG When compared with ECG of 31-OCT-2023 16:21, Sinus rhythm has replaced Atrial fibrillation Vent. rate has decreased BY 56 BPM Nonspecific T wave abnormality has replaced inverted T waves in Anterior leads Referred By: Branden Gaston Electronically Signed By:BRANDEN GASTON MD
[2023-11-03] MEDS: Metoprolol Tartrate 5 MG/5 ML VIAL IVPUSH (06:53)
[2023-11-03 07:27] LABS: Anion Gap 17 (12-20); Blood Urea Nitrogen 22 mg/dL (9-16); Calcium 9.4 mg/dL (8.4-10.2); Carbon Dioxide 26 mmol/L (22-29); Chloride 105 mmol/L (96-108); Creatinine Clr Calc Pharmacy 79.2; Estimated Glomerular Filt Rate 57; Glucose Random 96 mg/dL (60-115); Magnesium 1.9 mg/dL (1.6-2.6); Potassium 3.9 mmol/L (3.3-5.1); Sodium 144 mmol/L (135-145)
[2023-11-03 08:03] LABS: B Type Natriuretic Peptide 89 pg/mL (<100)
[2023-11-03] MEDS: Apixaban 5 MG TABLET PO ×2 (08:44→22:07)
[2023-11-03] MEDS: Furosemide 20 MG/2 ML VIAL IVPUSH ×2 (08:44→17:10)
[2023-11-03] MEDS: Metoprolol Succinate ER 25 MG TAB.ER.24H 75 MG PO (08:44)
--- NOTE | 2023-11-03 10:35 | CA_ITS ---
Transesophageal Echocardiogram Patient (Last, First, Middle): Donald Darling E Gender: Male Date of : 1955 Age: 68 Procedure Date: 11/03/2023 Procedure Type: Transesophageal Echocardiogram [place] [facility] [place] Height: 177.8 cm Weight: 151.96 kg BSA: 2.60 m2 Heart Rate: bpm [employer]: Referring MD: Branden Gaston MD Hand Stonecutter: TIARA Symptoms: Pre cardioversion Conclusion: ??? 1. Moderate to severe LV systolic dysfunction with LVEF of 30 35% 2. Biatrial enlargement, left greater than right 3. No intracardiac thrombi, masses, vegetations 4. Mild mitral regurgitation 5. No intracardiac shunting 6. Mild atherosclerotic changes noted in descending thoracic aorta 7. No gross pericardial effusion Findings Procedure Information Consent was obtained prior to the procedure. Pre TIARA oral cavity was checked and revealed significant overcrowding. The adult 3D probe was passed with difficulty. Left Ventricle Normal left ventricular cavity size. The left ventricular systolic function is moderate to severely decreased. The visually estimated ejection fraction is between 30-35%. Diastolic function is indeterminate on the basis of available data. Right Ventricle Normal right ventricular cavity size. Atria The left atrium is moderately dilated. There is lipomatous hypertrophy of the interatrial septum. There is no evidence of interatrial shunt. There is no evidence of a patent foramen ovale. There is no evidence of thrombus or mass in the left atrium. there is no significant smoke formation of clots or masses seen in the left atrium. The left atrial appendage was also identified multiple views with no evidence of smoke or clot formation. Left upper, right upper and right lower pulmonary veins drain normally into the left atrium. The right atrium is mildly dilated. There is no evidence of thrombus or mass in the right atrium. The IVC and SVC drain normally into the right atrium. The no significant masses or clot formation seen within right atrium. Aortic Valve Normal aortic valve structure and function. There is no aortic valve stenosis. There is no evidence of a mass on the aortic valve. There is no aortic valve regurgitation. Mitral Valve Normal mitral valve structure and function. There is mild mitral valve regurgitation. There is no mitral valve stenosis. There is no mass noted on the mitral valve. Pulmonic Valve The pulmonic valve is likely normal. Tricuspid Valve Normal tricuspid valve structure. There is mild tricuspid valve regurgitation. The right ventricular systolic pressure is not calculated. Great Vessels All visible segments of the aorta are normal in size. Small plaque is seen in the descending thoracic aorta. The visualized portions of the pulmonary artery and branches are normal. Venous The inferior vena cava is normal in size and collapses greater than 50% with inspiration. Pericardium/Pleural There is no evidence of pericardial effusion. Updated by Branden Gaston on 12:48 PM with Status of Final Branden Gaston MD electronically signed on 11/07/2023 12:48:42 PM with status of Final
--- NOTE | 2023-11-03 10:35 | MHC.SHP ---
Pre-Procedural Eval Section A - 24 Hr Update-Section A only Date of Service: 11/03/23 The patient is an INPATIENT: Yes Changes since office visit: Yes New Medical Problems and Yes Patient answered all questions; No Cold of Flu in the past 2 weeks and No Changes in Medication The patient has been examined within 24 hours of the surgical procedure. The History & Physical has been completed within 30 days and I have reviewed it.: Yes Section B - Complete if H&P > 30 days Chief Complaint: atrial fibrillation with rvr Allergies: Allergies Allergy/AdvReac Type Severity Reaction Status Date / Time No Known Allergies Allergy Verified 10/31/23 16:38 Plan I have reviewed the history and physical and performed a pertinent physical examination on my patient. No changes have occurred unless specified. Time Spent With Patient Time: Total time managing care of this patient today ____ minutes.
--- NOTE | 2023-11-03 10:49 | P.CONAN_ITS ---
[facility] Active Problems Active Problems: All Active Problems CHF exacerbation (Acute) Atrial fibrillation with rapid ventricular response (Acute) Obesity (Acute) Chronic ITP (idiopathic thrombocytopenic purpura) (Acute) MALIHA on CPAP (Acute) Atrial fibrillation with RVR (Acute) Bladder outlet obstruction (Acute) Anemia (Acute) Renal cyst (Acute) Erectile dysfunction due to arterial insufficiency (Acute) CAD (coronary artery disease) (Acute) Lung nodules (Acute) Bifascicular block (Acute) Exertional chest pain (Acute) Equivocal stress test (Acute) Chronic ITP (idiopathic thrombocytopenia) (Acute) Kidney stones (Acute) Asthma (Acute) Hypertension (Acute) Past Medical History Medical History Carpal tunnel syndrome, left Gout Right bundle branch block (RBBB) with left anterior fascicular block MALIHA on CPAP Chronic ITP (idiopathic thrombocytopenic purpura) Malignant melanoma of skin of arm Basal cell carcinoma (BCC) in situ of skin Anemia Kidney stones Asthma Hypertension Functional capacity: independent ambulation Family History Family History Father No problems noted. Mother No problems noted. Family/Other No problems noted. Sister Pancreatic cancer Family history of problems with anesthesia: No Surgical History Surgical History Hx of cystoscopy Hx of lithotripsy Hx of colonoscopy History of hernia surgery H/O bilateral hip replacements History of Problems with Anesthesia: No Social History Social History Household Members: Spouse Housing: House Are you a primary healthcare administrator to a significant other at home: No Do you presently have visiting nurse or other home services: No Alcohol intake: current Alcohol intake frequency: a few times a month Alcohol type: beer Patient Tobacco Use Status: Never used Tobacco service: No Current occupational status: retired Meds Allergies Allergy/AdvReac Type Severity Reaction Status Date / Time No Known Allergies Allergy Verified 10/31/23 16:38 Active Medications: Current Medications Acetaminophen (Acetaminophen 325 Mg Tablet) 650 mg PO Q6H PRN PRN Reason: Fever, Mild Pain, Headache Last Admin: 11/02/23 14:24 Dose: 650 mg Albuterol Sulfate (Albuterol Sulfate (0.083%) 2.5 Mg/3 Ml Vial.Neb) 2.5 mg INHALE Q4H PRN PRN Reason: Shortness of Breath/Wheezing Apixaban (Apixaban 5 Mg Tablet) 5 mg PO BID COUNT INCLUDES THE [facility] Last Admin: 11/03/23 08:44 Dose: 5 mg Cyanocobalamin (Cyanocobalamin (Vitamin B-12) 1,000 Mcg Tablet) 1,000 mcg PO DAILY COUNT INCLUDES THE [facility] Last Admin: 11/02/23 08:43 Dose: Not Given Fluticasone Propionate (Fluticasone Propionate Nasal 16 [address] [place]) 2 spray NOSTRIL-B BEDTIME COUNT INCLUDES THE [facility] Last Admin: 11/02/23 20:19 Dose: Not Given Furosemide (Furosemide 20 Mg/2 Ml Vial) 20 mg IVPUSH BID@0900,1800 COUNT INCLUDES THE [facility]; Protocol Last Admin: 11/03/23 08:44 Dose: 20 mg Diltiazem HCl 125 mg/ Sodium (Chloride) 125 mls @ 0 mls/hr IVCONT .Q0M COUNT INCLUDES THE [facility]; Protocol Last Titration: 11/02/23 14:27 Dose: Infused Loratadine (Loratadine 10 Mg Tablet) 10 mg PO DAILY COUNT INCLUDES THE [facility] Last Admin: 11/02/23 08:44 Dose: Not Given Melatonin (Melatonin 3 Mg Tablet) 6 mg PO BEDTIME PRN PRN Reason: Insomnia Last Admin: 11/01/23 22:21 Dose: 6 mg Metoprolol Succinate (Metoprolol Succinate Er 25 Mg Tab.Er.24h) 75 mg PO BID COUNT INCLUDES THE [facility]; Protocol Last Admin: 11/03/23 08:44 Dose: 75 mg Metoprolol Tartrate (Metoprolol Tartrate 5 Mg/5 Ml Vial) 5 mg IVPUSH Q6H PRN; Protocol PRN Reason: HR>120 Last Admin: 11/03/23 06:53 Dose: 5 mg Montelukast Sodium (Montelukast Sodium 10 Mg Tablet) 10 mg PO BEDTIME COUNT INCLUDES THE [facility] Last Admin: 11/02/23 20:18 Dose: 10 mg Multivitamins/Vitamin C (Multivitamin Tablet) 1 tab PO DAILY COUNT INCLUDES THE [facility] Last Admin: 11/02/23 08:44 Dose: Not Given Sodium Chloride (0.9 % Sodium Chloride Flush 3 Ml Syringe) 3 ml IVFLUSH QSHIFT COUNT INCLUDES THE [facility] Last Admin: 11/02/23 20:19 Dose: 3 ml Vitamin D (Cholecalciferol (Vitamin D3) 25 Mcg Tablet) 50 mcg PO DAILY [facility] Last Admin: 11/02/23 08:43 Dose: Not Given Home Medications ?Medication ?Instructions ?Recorded ?Confirmed ?Last Taken ?Type cetirizine 10 mg capsule (Zyrtec) 10 mg PO DAILY 04/05/20 10/31/23 10/31/23 History fluticasone propionate 50 2 spray intranasal BEDTIME 04/05/20 10/31/23 10/30/23 History mcg/actuation nasal spray,suspension montelukast 10 mg tablet 10 mg PO BEDTIME 04/05/20 10/31/23 10/30/23 History (Singulair) cholecalciferol (vitamin D3) 50 50 mcg PO DAILY 07/19/20 10/31/23 10/31/23 History mcg (2,000 unit) tablet (Vitamin D3) amlodipine 5 mg-benazepril 20 mg 1 cap PO DAILY 09/30/21 10/31/23 10/31/23 History capsule cyanocobalamin (vitamin B-12) 1,000 mcg PO DAILY 01/02/22 10/31/23 10/31/23 History 1,000 mcg tablet (Vitamin B-12) multivitamin 1 tab PO DAILY 10/31/23 10/31/23 10/31/23 History Exam Height,Weight and Vital Signs: Height 5 ft 10 in Weight 147.3 kg Last Vital Signs Temp 97.3 F 11/03/23 07:45 Pulse 89 11/03/23 08:44 Resp 18 11/03/23 07:45 BP 120/80 11/03/23 08:44 Pulse Ox 96 11/03/23 07:45 O2 Del Method Room Air 11/03/23 07:45 Pertinent Lab Results Pertinent Lab Results: Laboratory Tests 10/31/23 11/01/23 11/02/23 16:43 06:17 05:54 WBC 5.9 5.1 6.3 RBC 4.27 L 3.89 L 4.28 L Hgb 13.4 L 12.2 L 13.4 L Hct 39.8 L 36.9 L 40.3 L MCV 93.2 94.9 94.2 MCH 31.4 31.4 31.3 MCHC 33.7 33.1 33.3 RDW 15.1 15.3 14.9 Plt Count 106 L 95 L 107 L MPV 10.8 10.6 11.3 Immature Gran % (Auto) 0.5 H Neut % (Auto) 66.0 Lymph % (Auto) 23.3 [place] % (Auto) 8.3 Eos % (Auto) 1.4 Baso % (Auto) 0.5 Lymph # (Auto) 1.4 [place] # (Auto) 0.5 Eos # (Auto) 0.1 Baso # (Auto) 0.0 Abs Immat Gran (auto) 0.03 Absolute Neuts (auto) 3.9 Absolute Nucleated RBC 0.000 0.000 0.000 Nucleated RBC % (auto) 0.0 0.0 0.0 Hold Purple Top PT 12.3 INR 1.0 APTT 35.8 Hold Blue Top Sodium 146 H 144 144 Potassium 4.1 3.8 4.1 Chloride 109 H 111 H 105 Carbon Dioxide 24 22 27 Anion Gap 17 15 16 BUN 16 14 18 H Creatinine 1.31 1.14 1.25 Estim Creat Clear Calc 76.2 87.6 79.8 Estimated GFR 54 > 60 57 Random Glucose 103 94 93 Calcium 9.8 9.3 9.6 Magnesium 1.8 1.8 Total Bilirubin 0.9 AST 18 ALT 19 Alkaline Phosphatase 47 Troponin I High Sens 8.0 B-Natriuretic Peptide 98 122 H Total Protein 6.7 Albumin 3.9 TSH 1.32 11/03/23 06:26 WBC RBC Hgb Hct MCV MCH MCHC RDW Plt Count MPV Immature Gran % (Auto) Neut % (Auto) Lymph % (Auto) [place] % (Auto) Eos % (Auto) Baso % (Auto) Lymph # (Auto) [place] # (Auto) Eos # (Auto) Baso # (Auto) Abs Immat Gran (auto) Absolute Neuts (auto) Absolute Nucleated RBC Nucleated RBC % (auto) Hold Purple Top SEE NOTE PT INR APTT Hold Blue Top SEE NOTE Sodium 144 Potassium 3.9 Chloride 105 Carbon Dioxide 26 Anion Gap 17 BUN 22 H Creatinine 1.26 Estim Creat Clear Calc 79.2 Estimated GFR 57 Random Glucose 96 Calcium 9.4 Magnesium 1.9 Total Bilirubin AST ALT Alkaline Phosphatase Troponin I High Sens B-Natriuretic Peptide 89 Total Protein Albumin TSH Airway Mallampati Class: III TM Dist: >3cm Neck ROM: Full Heart: fast Lungs: CTA Assessment and Plan Final Anesthetic Review Family History of Problems with Anesthesia: No History of Problems with Anesthesia: No NPO: Yes ASA Class: III and Emergency Final Preanesthetic Review: Meds/Allgs Chart Reviewed, Consent Obtained/Reviewed and Anes Risks/Benef Reviewed Patient Risk: Intermediate Procedure Risk: Intermediate Anesthetic Plan Anesthetic Plan: GA Disposition: Standard PACU
--- NOTE | 2023-11-03 11:29 | P.CONAN_ITS ---
[facility] Active Problems Active Problems: All Active Problems (Updated 11/02/23 @ 11:18 by Branden Gaston MD) CHF exacerbation (Acute) Atrial fibrillation with rapid ventricular response (Acute) Obesity (Acute) Chronic ITP (idiopathic thrombocytopenic purpura) (Acute) MALIHA on CPAP (Acute) Atrial fibrillation with RVR (Acute) Bladder outlet obstruction (Acute) Anemia (Acute) Renal cyst (Acute) Erectile dysfunction due to arterial insufficiency (Acute) CAD (coronary artery disease) (Acute) Lung nodules (Acute) Bifascicular block (Acute) Exertional chest pain (Acute) Equivocal stress test (Acute) Chronic ITP (idiopathic thrombocytopenia) (Acute) Kidney stones (Acute) Asthma (Acute) Hypertension (Acute) Past Medical History Medical History Carpal tunnel syndrome, left Gout Right bundle branch block (RBBB) with left anterior fascicular block MALIHA on CPAP Chronic ITP (idiopathic thrombocytopenic purpura) Malignant melanoma of skin of arm Basal cell carcinoma (BCC) in situ of skin Anemia Kidney stones Asthma Hypertension Functional capacity: independent ambulation Family History Family History Father No problems noted. Mother No problems noted. Family/Other No problems noted. Sister Pancreatic cancer Family history of problems with anesthesia: No Surgical History Surgical History Hx of cystoscopy Hx of lithotripsy Hx of colonoscopy History of hernia surgery H/O bilateral hip replacements History of Problems with Anesthesia: No Social History Social History Household Members: Spouse Housing: House Are you a primary care transition coordinator to a significant other at home: No Do you presently have visiting nurse or other home services: No Alcohol intake: current Alcohol intake frequency: a few times a month Alcohol type: beer Patient Tobacco Use Status: Never used Tobacco service: No Current occupational status: retired Meds Allergies Allergy/AdvReac Type Severity Reaction Status Date / Time No Known Allergies Allergy Verified 10/31/23 16:38 Active Medications: Current Medications Acetaminophen (Acetaminophen 325 Mg Tablet) 650 mg PO Q6H PRN PRN Reason: Fever, Mild Pain, Headache Last Admin: 11/02/23 14:24 Dose: 650 mg Albuterol Sulfate (Albuterol Sulfate (0.083%) 2.5 Mg/3 Ml Vial.Neb) 2.5 mg INHALE Q4H PRN PRN Reason: Shortness of Breath/Wheezing Apixaban (Apixaban 5 Mg Tablet) 5 mg PO BID [facility] Last Admin: 11/03/23 08:44 Dose: 5 mg Cyanocobalamin (Cyanocobalamin (Vitamin B-12) 1,000 Mcg Tablet) 1,000 mcg PO DAILY [facility] Last Admin: 11/02/23 08:43 Dose: Not Given Fluticasone Propionate (Fluticasone Propionate Nasal 16 Gm [place]) 2 spray NOSTRIL-B BEDTIME [facility] Last Admin: 11/02/23 20:19 Dose: Not Given Furosemide (Furosemide 20 Mg/2 Ml Vial) 20 mg IVPUSH BID@0900,1800 [facility]; Protocol Last Admin: 11/03/23 08:44 Dose: 20 mg Diltiazem HCl 125 mg/ Sodium (Chloride) 125 mls @ 0 mls/hr IVCONT .Q0M [facility]; Protocol Last Titration: 11/02/23 14:27 Dose: Infused Loratadine (Loratadine 10 Mg Tablet) 10 mg PO DAILY [facility] Last Admin: 11/02/23 08:44 Dose: Not Given Melatonin (Melatonin 3 Mg Tablet) 6 mg PO BEDTIME PRN PRN Reason: Insomnia Last Admin: 11/01/23 22:21 Dose: 6 mg Metoprolol Succinate (Metoprolol Succinate Er 25 Mg Tab.Er.24h) 75 mg PO BID [facility]; Protocol Last Admin: 11/03/23 08:44 Dose: 75 mg Metoprolol Tartrate (Metoprolol Tartrate 5 Mg/5 Ml Vial) 5 mg IVPUSH Q6H PRN; Protocol PRN Reason: HR>120 Last Admin: 11/03/23 06:53 Dose: 5 mg Montelukast Sodium (Montelukast Sodium 10 Mg Tablet) 10 mg PO BEDTIME [facility] Last Admin: 11/02/23 20:18 Dose: 10 mg Multivitamins/Vitamin C (Multivitamin Tablet) 1 tab PO DAILY [facility] Last Admin: 11/02/23 08:44 Dose: Not Given Sodium Chloride (0.9 % Sodium Chloride Flush 3 Ml Syringe) 3 ml IVFLUSH QSHIFT [facility] Last Admin: 11/02/23 20:19 Dose: 3 ml Vitamin D (Cholecalciferol (Vitamin D3) 25 Mcg Tablet) 50 mcg PO DAILY [facility] Last Admin: 11/02/23 08:43 Dose: Not Given Home Medications ?Medication ?Instructions ?Recorded ?Confirmed ?Last Taken ?Type cetirizine 10 mg capsule (Zyrtec) 10 mg PO DAILY 04/05/20 10/31/23 10/31/23 History fluticasone propionate 50 2 spray intranasal BEDTIME 04/05/20 10/31/23 10/30/23 History mcg/actuation nasal spray,suspension montelukast 10 mg tablet 10 mg PO BEDTIME 04/05/20 10/31/23 10/30/23 History (Singulair) cholecalciferol (vitamin D3) 50 50 mcg PO DAILY 07/19/20 10/31/23 10/31/23 History mcg (2,000 unit) tablet (Vitamin D3) amlodipine 5 mg-benazepril 20 mg 1 cap PO DAILY 09/30/21 10/31/23 10/31/23 History capsule cyanocobalamin (vitamin B-12) 1,000 mcg PO DAILY 01/02/22 10/31/23 10/31/23 History 1,000 mcg tablet (Vitamin B-12) multivitamin 1 tab PO DAILY 10/31/23 10/31/23 10/31/23 History Exam Height,Weight and Vital Signs: Height 5 ft 10 in Weight 147.3 kg Last Vital Signs Temp 97.3 F 11/03/23 07:45 Pulse 89 11/03/23 08:44 Resp 18 11/03/23 07:45 BP 120/80 11/03/23 08:44 Pulse Ox 96 11/03/23 07:45 O2 Del Method Room Air 11/03/23 07:45 Pertinent Lab Results Pertinent Lab Results: Laboratory Tests 10/31/23 11/01/23 11/02/23 16:43 06:17 05:54 WBC 5.9 5.1 6.3 RBC 4.27 L 3.89 L 4.28 L Hgb 13.4 L 12.2 L 13.4 L Hct 39.8 L 36.9 L 40.3 L MCV 93.2 94.9 94.2 MCH 31.4 31.4 31.3 MCHC 33.7 33.1 33.3 RDW 15.1 15.3 14.9 Plt Count 106 L 95 L 107 L MPV 10.8 10.6 11.3 Immature Gran % (Auto) 0.5 H Neut % (Auto) 66.0 Lymph % (Auto) 23.3 [place] % (Auto) 8.3 Eos % (Auto) 1.4 Baso % (Auto) 0.5 Lymph # (Auto) 1.4 [place] # (Auto) 0.5 Eos # (Auto) 0.1 Baso # (Auto) 0.0 Abs Immat Gran (auto) 0.03 Absolute Neuts (auto) 3.9 Absolute Nucleated RBC 0.000 0.000 0.000 Nucleated RBC % (auto) 0.0 0.0 0.0 Hold Purple Top PT 12.3 INR 1.0 APTT 35.8 Hold Blue Top Sodium 146 H 144 144 Potassium 4.1 3.8 4.1 Chloride 109 H 111 H 105 Carbon Dioxide 24 22 27 Anion Gap 17 15 16 BUN 16 14 18 H Creatinine 1.31 1.14 1.25 Estim Creat Clear Calc 76.2 87.6 79.8 Estimated GFR 54 > 60 57 Random Glucose 103 94 93 Calcium 9.8 9.3 9.6 Magnesium 1.8 1.8 Total Bilirubin 0.9 AST 18 ALT 19 Alkaline Phosphatase 47 Troponin I High Sens 8.0 B-Natriuretic Peptide 98 122 H Total Protein 6.7 Albumin 3.9 TSH 1.32 11/03/23 06:26 WBC RBC Hgb Hct MCV MCH MCHC RDW Plt Count MPV Immature Gran % (Auto) Neut % (Auto) Lymph % (Auto) [place] % (Auto) Eos % (Auto) Baso % (Auto) Lymph # (Auto) [place] # (Auto) Eos # (Auto) Baso # (Auto) Abs Immat Gran (auto) Absolute Neuts (auto) Absolute Nucleated RBC Nucleated RBC % (auto) Hold Purple Top SEE NOTE PT INR APTT Hold Blue Top SEE NOTE Sodium 144 Potassium 3.9 Chloride 105 Carbon Dioxide 26 Anion Gap 17 BUN 22 H Creatinine 1.26 Estim Creat Clear Calc 79.2 Estimated GFR 57 Random Glucose 96 Calcium 9.4 Magnesium 1.9 Total Bilirubin AST ALT Alkaline Phosphatase Troponin I High Sens B-Natriuretic Peptide 89 Total Protein Albumin TSH Assessment and Plan Final Anesthetic Review Family History of Problems with Anesthesia: No History of Problems with Anesthesia: No NPO: Yes ASA Class: III Final Preanesthetic Review: Meds/Allgs Chart Reviewed, Consent Obtained/Reviewed and Anes Risks/Benef Reviewed Patient Risk: Intermediate Procedure Risk: Intermediate Anesthetic Plan Anesthetic Plan: GA Disposition: Standard PACU
--- NOTE | 2023-11-03 12:38 | ECG_ITS ---
Test Reason : cp Blood Pressure : / mmHG Vent. Rate : 094 BPM Atrial Rate : 094 BPM P-R Int : 172 ms QRS Dur : 146 ms QT Int : 382 ms P-R-T Axes : 037 -42 014 degrees QTc Int : 477 ms Normal sinus rhythm Left axis deviation Right bundle branch block Minimal voltage criteria for LVH, may be normal variant ( R in aVL ) Abnormal ECG When compared with ECG of 03-NOV-2023 12:37, No significant change was found Referred By: Gila Joseph Electronically Signed By:SAPPHIRE GIRON MD
[2023-11-03] MEDS: Amiodarone HCL 200 MG TABLET 400 MG PO ×2 (12:41→22:09)
[2023-11-03] MEDS: 0.9 % Sodium Chloride Flush 3 ML SYRINGE IVFLUSH ×2 (12:47→17:10)
--- NOTE | 2023-11-03 13:34 | P.PNCAR_ITS ---
Cardioversion Procedure Note Cardioversion Date of Procedure: 11/03/2023 Ordering Provider: Rufina Gaston Performing Provider: Rufina Gaston Indication for Procedure: Symptomatic atrial fibrillation with cardiomyopathy Pre-Op Diagnosis: Same Post-Op Diagnosis: Sinus Performed with Transesophageal Echo: Yes TIARA findings (if TIARA Performed): Dictated separately History: See my consult note Consent: Verbal and Written consent was obtained from the patient before starting and after oral anticoagulation use The patient was made aware of the risk of synchronized cardioversion including benefits and alternatives Procedure: After consent obtained, cardioversion pads were attached in anteroposterior configuration and the patient was sedated by the anesthesia team. Once adequate sedation achieved, patient was delivered 200 joules of biphasic synchronized naila rgy in anteroposterior configuration. Complications: None Impression: Successful conversion to sinus rhythm Recommendations: 1. 12 lead EKG 2. Start amiodarone 400 mg b.i.d. for 2 weeks followed by 200 mg daily 3. Continue full oral anticoagulation 4. Will need outpatient workup
--- NOTE | 2023-11-03 13:40 | PM.PNCARD ---
Subjective Subjective Date of Service: 11/03/23 Principal diagnosis: Atrial fibrillation, CHF, Interval history: Breathing better. Status post synchronized cardioversion today. No intracardiac thrombi. LV ejection fraction is reduced. Review of Systems Review of Systems Yes all other systems are reviewed and are negative Physical Exam Vital Signs: Last Vital Signs Temp 97.5 F 11/03/23 12:00 Pulse 95 11/03/23 12:05 Resp 18 11/03/23 12:05 BP 134/82 11/03/23 12:00 Pulse Ox 96 11/03/23 12:05 O2 Del Method Room Air 11/03/23 12:05 BMI result Body Mass Index 46.6 Const General: cooperative, comfortable, no acute distress, alert and awake Nutritional Appearance: obese Orientation/consciousness: patient oriented x3 Neck Neck: Yes trachea midline, Yes supple and Yes no JVD Resp Effort & Inspection: normal respiratory effort Auscultation: clear to auscultation bilaterally Cardio Jugular venous distension: no JVD Rate: regular rate Rhythm: regular rhythm Heart sounds: S1 normal heart sound present, S2 normal heart sound present, no click, no gallops and no murmurs Skin General skin exam: no rashes or lesions noted Neuro General: patient oriented x3 and no focal motor deficits Extrem General: No clubbing, No cyanosis and Yes edema Objective Labs and Meds 11/02/23 05:54 11/03/23 06:26 Lab results: Laboratory Results - last 24 hr 11/03/23 06:26 Hold Purple Top SEE NOTE Hold Blue Top SEE NOTE Sodium 144 Potassium 3.9 Chloride 105 Carbon Dioxide 26 Anion Gap 17 BUN 22 H Creatinine 1.26 Estim Creat Clear Calc 79.2 Estimated GFR 57 Random Glucose 96 Calcium 9.4 Magnesium 1.9 B-Natriuretic Peptide 89 Progress Note: A&P Assessment and plan (1) CHF exacerbation: Status: Acute Assessment and Plan: CHF exacerbation related to atrial fibrillation and now cardiomyopathy with suspected to be tachycardia mediated. Ischemic workup needs to be pursued. Will set up for outpatient. Continue metoprolol for neurohormonal modulation although will reduce the dose to 50 mg b.i.d.. Start Entresto. Continue IV diuresis for 1 more day. Switch to oral diuresis tomorrow. Monitor renal function. (2) Atrial fibrillation with rapid ventricular response: Status: Acute Assessment and Plan: Atrial fibrillation with rapid ventricular response recent onset most likely leading to heart failure syndrome as well as cardiomyopathy. Status post cardioversion. Continue full oral anticoagulation, currently on Eliquis. Follow platelet count closely. Will start on amiodarone to maintain rhythm given his atrial enlargement and underlying sleep apnea. Ischemic workup as above. Eventually switch to different antiarrhythmic drug therapy once maintain rhythm and LV function improves and ischemia is ruled out. Will follow with you Time Spent With Patient Time: Total time managing care of this patient today ____ minutes. Progress Note: Quality Stroke Does the patient have a stroke diagnosis?: No Procedures Date of Service Date of Service: 11/03/23
[2023-11-03] MEDS: Acetaminophen 325 MG TABLET 650 MG PO (14:33)
--- NOTE | 2023-11-03 15:32 | P.PNHO-ONC_ITS ---
Medical Summary - Medical Summary Date of Service: 11/03/23 Chief complaint: ITP Primary Care Provider: Volodymyr Hogan MD Interval History Interval history: Donald Darling is a 68 year old gentleman who presented to the emergency department complaining of worsening shortness of breath over the last few weeks. This was associated with minimal mid chest pleuritic pain. Shortness on breath is mostly on exertion. Pain does not radiate. He denies headache, dizziness, cough or palpitations. Denies fevers or chills. He also denied any acute gastrointestinal or genitourinary symptoms. He denied alcohol abuse, tobacco smoking, marijuana use or illicit drug use. He denies history of CHF. There is no fever or hypotension. In the ED, he was found to have marked tachycardia consistent with AFib with rapid ventricular response. O2 sats are normal on RA. Blood workup showed no leukocytosis. Hemoglobin is 13.4. Platelets level is 106. Mild hypernatremia of 146. Creatinine is 1.31. LFTs, BNP and troponin are normal. CXR showed no evidence of CHF. ECG shows atrial fibrillation with rapid ventricular response, right bundle branch block, LVH changes without significant ischemic changes. ED tx: Diltiazem 20 mg IV, diltiazem IV infusion Review of Systems 2 Review of Systems: All 12 systems were reviewed and normal except as noted in HPI. [facility] Medical History: Significant for: 1.Essential hypertension, 2. Obstructive sleep apnea on CPAP, 3. ITP. 4. Asthma Carpal tunnel syndrome, left Gout Right bundle branch block (RBBB) with left anterior fascicular block MALIHA on CPAP Chronic ITP (idiopathic thrombocytopenic purpura) Malignant melanoma of skin of arm Basal cell carcinoma (BCC) in situ of skin Anemia Kidney stones Family History: Father No problems noted. Mother No problems noted. Review of Systems - Neurologic Reports system reviewed and no additional complaints, except as documented [facility] Medical History: Medical History (Last Reviewed 11/01/23 @ 11:41 by Branden Gaston MD) Anemia Asthma Basal cell carcinoma (BCC) in situ of skin Carpal tunnel syndrome, left Chronic ITP (idiopathic thrombocytopenic purpura) Gout Hypertension Kidney stones Malignant melanoma of skin of arm MALIHA on CPAP Right bundle branch block (RBBB) with left anterior fascicular block Functional capacity: independent ambulation Family History: Family History (Last Reviewed 11/01/23 @ 11:41 by Branden Gaston MD) Father No problems noted. Mother No problems noted. Family/Other No problems noted. Sister Pancreatic cancer Surgical History: Surgical History (Last Reviewed 11/01/23 @ 11:41 by Branden Gaston MD) H/O bilateral hip replacements History of hernia surgery Hx of colonoscopy Hx of cystoscopy Hx of lithotripsy Social History: Social History (Last Reviewed 11/01/23 @ 11:41 by Branden Gaston MD) Living Situation History: Household Members: Spouse Housing: House Are you a primary college and career counselor to a significant other at home: No Do you presently have visiting nurse or other home services: No Tobacco History: Patient Tobacco Use Status: Never used Tobacco Occupation Assessmet: service: No Current occupational status: retired Home Medications and Allergies Current Medications: Current Medications Acetaminophen (Acetaminophen 325 Mg Tablet) 650 mg PO Q6H PRN PRN Reason: Fever, Mild Pain, Headache Last Admin: 11/03/23 14:33 Dose: 650 mg Albuterol Sulfate (Albuterol Sulfate (0.083%) 2.5 Mg/3 Ml Vial.Neb) 2.5 mg INHALE Q4H PRN PRN Reason: Shortness of Breath/Wheezing Amiodarone HCl (Amiodarone Hcl 200 Mg Tablet) 400 mg PO BID [facility] Last Admin: 11/03/23 12:41 Dose: 400 mg Apixaban (Apixaban 5 Mg Tablet) 5 mg PO BID [facility] Last Admin: 11/03/23 08:44 Dose: 5 mg Cyanocobalamin (Cyanocobalamin (Vitamin B-12) 1,000 Mcg Tablet) 1,000 mcg PO DAILY [facility] Last Admin: 11/03/23 12:19 Dose: Not Given Fluticasone Propionate (Fluticasone Propionate Nasal 16 Gm [place]) 2 spray NOSTRIL-B BEDTIME [facility] Last Admin: 11/02/23 20:19 Dose: Not Given Furosemide (Furosemide 20 Mg/2 Ml Vial) 20 mg IVPUSH BID@0900,1800 [facility]; Protocol Last Admin: 11/03/23 08:44 Dose: 20 mg Loratadine (Loratadine 10 Mg Tablet) 10 mg PO DAILY [facility] Last Admin: 11/03/23 12:18 Dose: Not Given Melatonin (Melatonin 3 Mg Tablet) 6 mg PO BEDTIME PRN PRN Reason: Insomnia Last Admin: 11/01/23 22:21 Dose: 6 mg Metoprolol Succinate (Metoprolol Succinate Er 50 Mg Tab.Er.24h) 50 mg PO BID [facility]; Protocol Metoprolol Tartrate (Metoprolol Tartrate 5 Mg/5 Ml Vial) 5 mg IVPUSH Q6H PRN; Protocol PRN Reason: HR>120 Last Admin: 11/03/23 06:53 Dose: 5 mg Montelukast Sodium (Montelukast Sodium 10 Mg Tablet) 10 mg PO BEDTIME [facility] Last Admin: 11/02/23 20:18 Dose: 10 mg Multivitamins/Vitamin C (Multivitamin Tablet) 1 tab PO DAILY [facility] Last Admin: 11/03/23 12:18 Dose: Not Given Sodium Chloride (0.9 % Sodium Chloride Flush 3 Ml Syringe) 3 ml IVFLUSH QSHIFT [facility] Last Admin: 11/03/23 12:47 Dose: 3 ml Vitamin D (Cholecalciferol (Vitamin D3) 25 Mcg Tablet) 50 mcg PO DAILY [facility] Last Admin: 11/03/23 12:19 Dose: Not Given Home Medications ?Medication ?Instructions ?Recorded ?Confirmed ?Type cetirizine 10 mg capsule (Zyrtec) 10 mg PO DAILY 04/05/20 10/31/23 History fluticasone propionate 50 2 spray intranasal BEDTIME 04/05/20 10/31/23 History mcg/actuation nasal spray,suspension montelukast 10 mg tablet 10 mg PO BEDTIME 04/05/20 10/31/23 History (Singulair) cholecalciferol (vitamin D3) 50 50 mcg PO DAILY 07/19/20 10/31/23 History mcg (2,000 unit) tablet (Vitamin D3) amlodipine 5 mg-benazepril 20 mg 1 cap PO DAILY 09/30/21 10/31/23 History capsule cyanocobalamin (vitamin B-12) 1,000 mcg PO DAILY 01/02/22 10/31/23 History 1,000 mcg tablet (Vitamin B-12) multivitamin 1 tab PO DAILY 10/31/23 10/31/23 History Allergies Allergy/AdvReac Type Severity Reaction Status Date / Time No Known Allergies Allergy Verified 10/31/23 16:38 Exam Vital signs: Vital Signs Temp 97.7 F 11/03/23 15:10 Pulse 84 11/03/23 15:10 Resp 18 11/03/23 15:10 BP 139/79 11/03/23 15:10 Pulse Ox 95 11/03/23 15:10 O2 Del Method Room Air 11/03/23 15:10 Intake & Output 11/02/23 11/03/23 11/03/23 18:59 06:59 18:59 Intake Total 850 / 850 Balance 850 / 850 Intake: Intake, Oral Amount 850 / 850 Intake, IV Amount 0 / 0 dilTIAZem HCL 125 mg In 0.9 % 0 / 0 Sodium Chloride 100 ml @ Per Protocol IVCONT .Q0M [facility] Rx#: [id number] Other: NPO Yes Breakfast % Eaten 0% Lunch % Eaten 100% Number of Unmeasured Voids 3 1 Urine Bathroom Last Bowel Movement 11/02/23 Weight 147.3 kg BMI result Body Mass Index 46.6 - Constitutional Present: no acute distress, mild distress - Routine HEENT Exam Head: Present: atraumatic, normal inspection - Routine Respiratory Exam Present: decreased breath sounds - Routine Cardiovascular Exam Cardiovascular: Present: RRR, S1, S2, irregularly irregular - Routine Abdominal Exam Present: diminished bowel sounds, soft, nontender - Routine Skin Exam Present: intact, normal turgor - Routine Neurological Exam Present: alert, oriented X3 Data - Labs CBC & Chem 7: 11/02/23 05:54 11/03/23 06:26 Labs: Laboratory Last Values WBC 6.3 X10*3/uL (4.8-10.8) 11/02/23 05:54 RBC 4.28 X10*6/uL (4.60-5.80) L 11/02/23 05:54 Hgb 13.4 g/dl (14.0-18.0) L 11/02/23 05:54 Hct 40.3 % (42.0-52.0) L 11/02/23 05:54 MCV 94.2 fL (80.0-98.0) 11/02/23 05:54 MCH 31.3 pg (27.0-33.0) 11/02/23 05:54 MCHC 33.3 g/dl (31.0-36.0) 11/02/23 05:54 RDW 14.9 % (11.0-16.0) 11/02/23 05:54 Plt Count 107 X10*3/uL (160-400) L 11/02/23 05:54 MPV 11.3 fL (9.4-12.4) 11/02/23 05:54 Immature Gran % (Auto) 0.5 % (0.0-0.4) H 10/31/23 16:43 Neut % (Auto) 66.0 % (45-73) 10/31/23 16:43 Lymph % (Auto) 23.3 % (20-40) 10/31/23 16:43 [place]aufman % (Auto) 8.3 % (2-11) 10/31/23 16:43 Eos % (Auto) 1.4 % (0-4) 10/31/23 16:43 Baso % (Auto) 0.5 % (0-2) 10/31/23 16:43 Lymph # (Auto) 1.4 X10*3/uL (1.2-4.9) 10/31/23 16:43 Kaufman # (Auto) 0.5 X10*3/uL (0.1-1.2) 10/31/23 16:43 Eos # (Auto) 0.1 X10*3/uL (0.0-0.4) 10/31/23 16:43 Baso # (Auto) 0.0 X10*3/uL (0.0-0.2) 10/31/23 16:43 Abs Immat Gran (auto) 0.03 X10*3/uL (0.00-0.03) 10/31/23 16:43 Absolute Neuts (auto) 3.9 x10*3/uL (2.0-8.3) 10/31/23 16:43 Absolute Nucleated RBC 0.000 X10*3/uL (0.0-0.012) 11/02/23 05:54 Nucleated RBC % (auto) 0.0 /100WBC (0.0-0.2) 11/02/23 05:54 Hold Purple Top SEE NOTE 11/03/23 06:26 PT 12.3 SEC (11.1-13.3) 10/31/23 16:43 INR 1.0 (0.9-1.1) 10/31/23 16:43 APTT 35.8 SEC (26.0-36.8) 10/31/23 16:43 Hold Blue Top SEE NOTE 11/03/23 06:26 Sodium 144 mmol/L (135-145) 11/03/23 06:26 Potassium 3.9 mmol/L (3.3-5.1) 11/03/23 06:26 Chloride 105 mmol/L (96-108) 11/03/23 06:26 Carbon Dioxide 26 mmol/L (22-29) 11/03/23 06:26 Anion Gap 17 (12-20) 11/03/23 06:26 BUN 22 mg/dL (9-16) H 11/03/23 06:26 Creatinine 1.26 mg/dL (0.5-1.4) 11/03/23 06:26 Estim Creat Clear Calc 79.2 11/03/23 06:26 Estimated GFR 57 11/03/23 06:26 Random Glucose 96 mg/dL (60-115) 11/03/23 06:26 Calcium 9.4 mg/dL (8.4-10.2) 11/03/23 06:26 Magnesium 1.9 mg/dL (1.6-2.6) 11/03/23 06:26 Total Bilirubin 0.9 mg/dL (0.0-1.0) 10/31/23 16:43 AST 18 U/L (5-37) 10/31/23 16:43 ALT 19 U/L (0-40) 10/31/23 16:43 Alkaline Phosphatase 47 U/L (39-117) 10/31/23 16:43 Troponin I High Sens 8.0 ng/L (<3.5-35.0) 10/31/23 16:43 B-Natriuretic Peptide 89 pg/mL (<100) 11/03/23 06:26 Total Protein 6.7 g/dL (6.5-8.0) 10/31/23 16:43 Albumin 3.9 g/dL (3.5-5.0) 10/31/23 16:43 TSH 1.32 uIU/mL (0.32-4.0) 11/01/23 06:17 - Imaging Radiologist's impression: ITS Impressions Chest X-Ray 10/31/23 17:16 IMPRESSION: Mild peribronchial cuffing and prominence of interstitial markings at the right lung base. No gross evidence of CHF. Assessment and Plan Patient Active problem list reviewed?: Yes (1) Chronic ITP (idiopathic thrombocytopenic purpura) Problem details: last WinRho treatment 01/04/2022 Status: Acute Assessment and plan: This is a pleasant 68 year-old gentleman, with H/O ITP. He has been on WinRho, since August 29, 2006. He was actually initially seen here in a June of 2004. He has remained stable on WinRho. He usually requires that every 8 weeks or so. His platelet count on 06/20/21: 175. He recieved his WinRho dose, on June 07, and before that was February 24 2020. In the past, we have talked about rituximab and splenectomy, as an option for his ITP. However he does not wish to change the treatment: he says he does not want to rock the boat, at this time. He would like to continue on the WinRho as long as it works and he he is tolerating it. Serial platelet count: 128/103/101/113/104. He he has done very well. His platelet count responds very nicely to it. He has not required prednisone, since January 06. He is tolerating the WinRho well. He had actually gone 4 months, without requiring it. He received it on 07/05/2022. And then on 02/15/2023. His last infusion interval was 16 weeks. Last WinRho was 09/10/23, before that was on 05/17. Platelet yesterday: 106. Platelet count today: 95. He now presents with new onset AFib. He is being treated for congestive heart failure. Question is about anticoagulation. PLAN: At this point his platelet count is reasonable close to 100,000. He can be given Eliquis 5 mg b.i.d. without the loading dose. Will monitor platelets carefully. Would be inclined to retreat with WinRHo, if platelet count falls to less than 50. Alternative would be to treat him with steroids. Thank you for the consult. I will follow along with you, CC: - Time Spent With Patient Time Spent with Patient (in minutes): 15
--- NOTE | 2023-11-03 17:20 | HO.PM.IMPN ---
Subjective Subjective Date of Service: 11/03/23 Interval History: Being followed for atrial fibrillation with RVR, feeling better denies chest pain, no palpitations, feels shortness of breath is better , lower extremity edema is improving, no acute overnight events is NPO for cardioversion, remains in atrial fibrillation with ventricular rate in 120 to 130s. Review of Systems All other system reviewed and negative. Physical Exam Vital Signs: Vital Signs: Last Vital Signs Temp 97.7 F 11/03/23 15:10 Pulse 84 11/03/23 15:10 Resp 18 11/03/23 15:10 BP 139/79 11/03/23 15:10 Pulse Ox 95 11/03/23 15:10 O2 Del Method Room Air 11/03/23 15:10 BMI result Body Mass Index 46.6 Const: Other: Gen: Awake alert x3 in no acute distress HEENT: sclera anicteric, moist mucus membranes Neck: supple Lungs: clear to auscultation bilaterally Heart: rapid, irregular, no murmurs Abd: soft, non-tender, non-distended Ext: Bilateral lower extremity pitting edema Skin: warm/well-perfused Neuro: alert and oriented x3, no focal findings Psych: appropriate affect Objective Data Active Medications Acetaminophen (Acetaminophen 325 Mg Tablet) 650 mg PO Q6H PRN PRN Reason: Fever, Mild Pain, Headache Last Admin: 11/03/23 14:33 Dose: 650 mg Documented By: CHAYMONITIN Albuterol Sulfate (Albuterol Sulfate (0.083%) 2.5 Mg/3 Ml Vial.Neb) 2.5 mg INHALE Q4H PRN PRN Reason: Shortness of Breath/Wheezing Amiodarone HCl (Amiodarone Hcl 200 Mg Tablet) 400 mg PO BID [facility] Last Admin: 11/03/23 12:41 Dose: 400 mg Documented By: PODMORP Apixaban (Apixaban 5 Mg Tablet) 5 mg PO BID [facility] Last Admin: 11/03/23 08:44 Dose: 5 mg Documented By: PODMORP Cyanocobalamin (Cyanocobalamin (Vitamin B-12) 1,000 Mcg Tablet) 1,000 mcg PO DAILY [facility] Last Admin: 11/03/23 12:19 Dose: Not Given Documented By: CHAYMONITIN Non-Admin Reason: Patient Refused Fluticasone Propionate (Fluticasone Propionate Nasal 16 Gm [place]) 2 spray NOSTRIL-B BEDTIME [facility] Last Admin: 11/02/23 20:19 Dose: Not Given Documented By: BISI Non-Admin Reason: Patient Refused Furosemide (Furosemide 20 Mg/2 Ml Vial) 20 mg IVPUSH BID@0900,1800 [facility]; Protocol Last Admin: 11/03/23 17:10 Dose: 20 mg Documented By: CHAYMONITIN Loratadine (Loratadine 10 Mg Tablet) 10 mg PO DAILY [facility] Last Admin: 11/03/23 12:18 Dose: Not Given Documented By: CHAYMORP Non-Admin Reason: Patient Refused Melatonin (Melatonin 3 Mg Tablet) 6 mg PO BEDTIME PRN PRN Reason: Insomnia Last Admin: 11/01/23 22:21 Dose: 6 mg Documented By: HUMBERTO Metoprolol Succinate (Metoprolol Succinate Er 50 Mg Tab.Er.24h) 50 mg PO BID [facility]; Protocol Metoprolol Tartrate (Metoprolol Tartrate 5 Mg/5 Ml Vial) 5 mg IVPUSH Q6H PRN; Protocol PRN Reason: HR>120 Last Admin: 11/03/23 06:53 Dose: 5 mg Documented By: BISI Montelukast Sodium (Montelukast Sodium 10 Mg Tablet) 10 mg PO BEDTIME [facility] Last Admin: 11/02/23 20:18 Dose: 10 mg Documented By: BISI Multivitamins/Vitamin C (Multivitamin Tablet) 1 tab PO DAILY [facility] Last Admin: 11/03/23 12:18 Dose: Not Given Documented By: CHAYMORP Non-Admin Reason: Patient Refused Sodium Chloride (0.9 % Sodium Chloride Flush 3 Ml Syringe) 3 ml IVFLUSH QSHIFT [facility] Last Admin: 11/03/23 17:10 Dose: 3 ml Documented By: FRANCISCO J Vitamin D (Cholecalciferol (Vitamin D3) 25 Mcg Tablet) 50 mcg PO DAILY [facility] Last Admin: 11/03/23 12:19 Dose: Not Given Documented By: CHAYMORP Non-Admin Reason: Patient Refused Labs 11/02/23 05:54 11/03/23 06:26 Labs: Laboratory Results - last 24 hr 11/03/23 06:26 Hold Purple Top SEE NOTE Hold Blue Top SEE NOTE Anion Gap 17 Estim Creat Clear Calc 79.2 Estimated GFR 57 Random Glucose 96 Calcium 9.4 Magnesium 1.9 B-Natriuretic Peptide 89 Assessment and Plan (1) Atrial fibrillation with rapid ventricular response: Status: Acute Plan 68yo M with HTN, MALIHA on CPAP, chronic ITP, asthma, and morbid obesity presenting with progressive exertional dyspnea for the last few weeks, found to have AF/RVR AF/RVR - s/p diltiazem IV gtt, now on metoprolol succinate [plus prn IV metoprolol tartrate] -cardioverted to normal sinus rhythm and started on amiodarone loading. Eliquis with close platelet count monitoring acute HFrEF [35% on preliminary read] - continue diurese with IV furosemide, monitor I/O + wt,stable potassium renal function, BNP and magnesium Will transition to by mouth Lasix at a.m. Echo showed EF 30-35%, normal right ventricular cavity size and function, moderately dilated left atrium. Monitor electrolytes and discuss Entresto with Cardiology HTN - continue metoprolol succinate [was on amlodipine-benazepril at home] ITP, chronic - monitor platelets; gets WinRho when platelets drop; followed by Dr Rosenthal MALIHA - CPAP at night mild intermittent asthma, not in acute exac - continue montelukast, prn albuterol morbid obesity - diet/exercise counseling VTE ppx - SCDs dispo - continue tele monitor if heart rate remained stable will DC tomorrow In my clinical judgment, the patient requires continued inpatient hospitalization for the following reasons: diuresis, rate control Total time managing care of this patient today: 45 minutes. Quality Stroke Does the patient have a stroke diagnosis?: No VTE Prior VTE?: No VTE Risk Level:: Medical - moderate - high VTE Device Contraindication: N/A - Device Ordered VTE Drug Contraindication: Treatment Not Indicated
[2023-11-03] MEDS: Metoprolol Succinate ER 50 MG TAB.ER.24H PO (22:07)
[2023-11-03] MEDS: Montelukast Sodium 10 MG TABLET PO (22:07)
[2023-11-04] VITALS: BP 113/60; PULSE 84; RESP 18; TEMP 36; O2SAT 94
[2023-11-04 04:00] VITALS: BP 107/48; PULSE 74; RESP 16; TEMP 36.6; O2SAT 95
[2023-11-04 07:10] VITALS: BP 122/68; PULSE 73; RESP 18; TEMP 36.2; O2SAT 96
[2023-11-04 08:06] LABS: Hemoglobin 13.9 g/dl (14.0-18.0); Mean Corpuscular HGB Conc 33.9 g/dl (31.0-36.0); Mean Corpuscular Hemoglobin 31.4 pg (27.0-33.0); Mean Corpuscular Volume 92.8 fL (80.0-98.0); Mean Platelet Volume 11.2 fL (9.4-12.4); Platelet Count 152 X10*3/uL (160-400); Red Blood Count 4.42 X10*6/uL (4.60-5.80); Red Cell Distribution Width 14.4 % (11.0-16.0); White Blood Count 7.2 X10*3/uL (4.8-10.8)
[2023-11-04] MEDS: Cyanocobalamin (Vitamin B-12) 1,000 MCG TABLET 1000 MCG PO (08:25)
[2023-11-04] MEDS: Apixaban 5 MG TABLET PO (08:25)
[2023-11-04] MEDS: Furosemide 20 MG/2 ML VIAL IVPUSH (08:25)
[2023-11-04] MEDS: Multivitamin TABLET 1 TAB PO (08:25)
[2023-11-04] MEDS: 0.9 % Sodium Chloride Flush 3 ML SYRINGE IVFLUSH (08:25)
[2023-11-04] MEDS: Metoprolol Succinate ER 50 MG TAB.ER.24H PO (08:25)
[2023-11-04] MEDS: Loratadine 10 MG TABLET PO (08:25)
[2023-11-04] MEDS: Cholecalciferol (Vitamin D3) 25 MCG TABLET 50 MCG PO (08:25)
[2023-11-04] MEDS: Amiodarone HCL 200 MG TABLET 400 MG PO (08:25)
[2023-11-04 08:29] LABS: Anion Gap 20 (12-20); Blood Urea Nitrogen 26 mg/dL (9-16); Calcium 9.8 mg/dL (8.4-10.2); Carbon Dioxide 26 mmol/L (22-29); Chloride 101 mmol/L (96-108); Creatinine Clr Calc Pharmacy 85.3; Estimated Glomerular Filt Rate > 60; Glucose Random 100 mg/dL (60-115); Sodium 143 mmol/L (135-145)
--- NOTE | 2023-11-04 10:40 | P.DS_ITS ---
DS: Providers Provider Date of Service: 11/04/23 Date of admission: 10/31/23 19:51 Primary care physician: Volodymyr Hogan MD Consults: 10/31/23 20:36 Consult to Cardiology Routine Consulting Provider[place] [facility] [facility] Reason for consultation: AFib with RVR, new onset Has provider been notified: Yes 11/01/23 08:22 Consult to Hematology / Oncology Routine Consulting Provider: Daniel Rosenthal Reason for consultation: ITP pt who needs anticoagulation for AF DS: Diagnosis Discharge Diagnosis (1) Atrial fibrillation with rapid ventricular response: Status: Acute DS: Summary Hospital Course Hospital Course: Date of Service: 10/31/23 Attending physician on admission: Zehra Baltazar Chief Complaint: Shorntess of breath Donald Darling is a 68 years old man with past medical history significant for essential hypertension, obstructive sleep apnea on CPAP, ITP and asthma presents to the emergency department complaining of worsening shortness of breath over the last several weeks associated with minimal mid chest pleuritic pain. Shortness on breath is mostly on exertion. Pain does not radiate. He denies headache, dizziness, cough or palpitations. Denies fevers or chills. He also denied any acute gastrointestinal or genitourinary symptoms. He denied alcohol abuse, tobacco smoking, marijuana use or illicit drug use. He denies history of CHF. In the ED, he was found to have marked tachycardia consistent with AFib with rapid ventricular response. There is no fever or hypotension. O2 sats are normal on RA. Blood workup showed no leukocytosis. Hemoglobin is 13.4. Platelets level is 106. There is mild hypernatremia of 146. Creatinine is 1.31. LFTs, BNP and troponin are normal. CXR showed no evidence of CHF. ECG shows atrial fibrillation with rapid ventricular response, right bundle branch block, LVH changes without significant ischemic changes. ED tx: Diltiazem 20 mg IV, diltiazem IV infusion Hospital course Atrial fibrillation with RVR and acute congestive heart failure with reduced EF; 68yo M with HTN, MALIHA on CPAP, chronic ITP, asthma, and morbid obesity presented with progressive exertional dyspnea , found to have AF/RVR, admitted to t elemetry unit treated with IV diltiazem drip and subsequently transitioned to metoprolol, patient underwent successful cardioversion on 11/02, subsequently placed on amiodarone loading dose 400 mg b.i.d. and placed on Eliquis 5 mg b.i.d., patient remains in normal sinus rhythm therefore being discharged home on metoprolol 50 mg b.i.d., Eliquis 5 mg b.i.d. and amiodarone loading dose 4 x 2 weeks followed by 200 mg 1 tablet daily, patient was also noted to be in acute congestive heart failure with reduced EF echo showed EF 35%, normal right ventricular cavity size and function, moderately dilated left atrium patient treated with IV Lasix and now being transitioned to Lasix 20 mg daily his electrolytes and renal function were monitored closely and the both remained stable, since patient remained hemodynamically stable he is being discharged home today with recommendation to follow-up with Dr. jared fernandes in 2-4 weeks if BP remained stable he will be placed on Entresto. In regard to hypertension patient has been placed on metoprolol 50 mg b.i.d., home dose of amlodipine/benazepril has been discontinued. ITP, chronic follows with Dr. Rosenthal, gets WinRho when platelets drop,; followed by Dr Rosenthal, platelet count was monitored closely , platelet count 152 today recommend, outpatient follow-up with Oncology MALIHA continue CPAP at night mild intermittent asthma, continue montelukast, prn albuterol morbid obesity recommend low-calorie diet and exercise. Time Attestation Discharge Coordination Time (in mins): 40 Quality: Safe Use of Opioids Does Pt have an Active Cancer Diagnosis on the Problem List?: No Quality: Stroke Does the patient have a stroke diagnosis?: No Physical Exam Vital Signs: Vital Signs: Last Vital Signs Temp 97.1 F 11/04/23 07:10 Pulse 73 11/04/23 07:10 Resp 18 11/04/23 07:10 BP 122/68 11/04/23 07:10 Pulse Ox 96 11/04/23 07:10 O2 Del Method Room Air 11/04/23 07:10 BMI result Body Mass Index 46.6 Const: Other: Gen: Awake alert x3 in no acute distress HEENT: sclera anicteric, moist mucus membranes Neck: supple, no JVD Lungs: clear to auscultation bilaterally Heart: Regular rate rhythm,, no murmurs Abd: soft, non-tender, non-distended Ext: mild Bilateral lower extremity pitting edema Skin: warm/well-perfused Neuro: alert and oriented x3, no focal findings Psych: appropriate affect DS: Data Data Completed and Pending Labs on day of discharge: Laboratory Results - last 24 hr 11/04/23 07:20 WBC 7.2 RBC 4.42 L Hgb 13.9 L Hct 41.0 L MCV 92.8 MCH 31.4 MCHC 33.9 RDW 14.4 Plt Count 152 L D MPV 11.2 Absolute Nucleated RBC 0.000 Nucleated RBC % (auto) 0.0 Sodium 143 Potassium 4.0 Chloride 101 Carbon Dioxide 26 Anion Gap 20 BUN 26 H Creatinine 1.17 Estim Creat Clear Calc 85.3 Estimated GFR > 60 Random Glucose 100 Calcium 9.8 Discharge Plan Discharge Anticipated Discharge Date/Time: 11/04/23 10:37 Patient Disposition: Home, Self-Care Discharge Diagnosis: Atrial fibrillation with rapid ventricular rate Acute heart failure with reduced EF Referrals: Volodymyr Hogan MD [Primary Care Provider] - 1 Week Discharge Medications: New Eliquis 5 mg Tablet 5 mg PO BID Qty: 60 0RF amiodarone 200 mg Tablet 400 mg PO BID Qty: 60 0RF Rx Instructions: Take amiodarone 200 mg x2 tablets (400 Mg) for 12 more days, then take amiodarone 200 mg 1 tablet daily metoprolol succinate 50 mg Tablet Extended Release 24 Hr 50 mg PO BID Qty: 60 0RF Protocol: Hold for SBP/HR < HOLD for SBP < : 90 HOLD for HR < : 60 furosemide [Lasix] 20 mg tablet 20 mg PO DAILY Qty: 30 0RF Continued montelukast [Singulair] 10 mg Tablet 10 mg PO BEDTIME fluticasone propionate 50 mcg/actuation [place],Suspension 2 spray INTRANASAL BEDTIME Zyrtec 10 mg Capsule 10 mg PO DAILY cholecalciferol (vitamin D3) [Vitamin D3] 50 mcg (2,000 unit) Tablet 50 mcg PO DAILY cyanocobalamin (vitamin B-12) [Vitamin B-12] 1,000 mcg Tablet 1,000 mcg PO DAILY multivitamin Tablet 1 tab PO DAILY Discontinued amlodipine-benazepril 5-20 mg Capsule 1 cap PO DAILY Discharge Orders: Discharge Order (Routine); Ordered 11/04/23 Ordered By: Gila Joseph Diet: Low salt diet Activity on Discharge: As tolerated Stand Alone Forms: Patient Portal Discharge page Print Language: [place] Citizen Care Plan Goals: Take amiodarone 400 mg times 12 days, then 200 mg 1 tablet daily Take Eliquis 1 tablet twice daily Take metoprolol 1 tablet twice daily Take Lasix 20 mg 1 tablet daily Returned to check with recurrent episodes of shortness of breath/chest pain/lightheadedness or dizziness Follow blood pressure at home Health Concerns: Take all other medicines as prescribed Plan of Treatment: Outpatient follow-up with public health social worker Dr. Nguyễn call for appointment 2-4 weeks. Assessment: As above
[2023-11-04 10:54] VITALS: BP 114/58; PULSE 72; RESP 18; TEMP 36.4; O2SAT 95
--- NOTE | 2023-11-04 12:19 | PM.PNCARD ---
Subjective Subjective Date of Service: 11/04/23 Principal diagnosis: Atrial fibrillation, CHF, Interval history: Patient status post TIARA guided cardioversion. Feeling better. Blood pressure on the softer side. Maintaining sinus rhythm. Review of Systems Review of Systems Yes all other systems are reviewed and are negative Physical Exam Vital Signs: Last Vital Signs Temp 97.5 F 11/04/23 10:54 Pulse 72 11/04/23 10:54 Resp 18 11/04/23 10:54 BP 114/58 L 11/04/23 10:54 Pulse Ox 95 11/04/23 10:54 O2 Del Method Room Air 11/04/23 10:54 BMI result Body Mass Index 46.6 Const General: cooperative, comfortable, no acute distress, alert and awake Nutritional Appearance: obese Orientation/consciousness: patient oriented x3 Neck Neck: Yes trachea midline, Yes supple and Yes no JVD Resp Effort & Inspection: normal respiratory effort Auscultation: clear to auscultation bilaterally Cardio Jugular venous distension: no JVD Rate: regular rate Rhythm: regular rhythm Heart sounds: S1 normal heart sound present, S2 normal heart sound present, no click, no gallops and no murmurs Skin General skin exam: no rashes or lesions noted Neuro General: patient oriented x3 and no focal motor deficits Extrem General: No clubbing, No cyanosis and Yes edema Objective Labs and Meds 11/04/23 07:20 11/04/23 07:20 Lab results: Laboratory Results - last 24 hr 11/04/23 07:20 WBC 7.2 RBC 4.42 L Hgb 13.9 L Hct 41.0 L MCV 92.8 MCH 31.4 MCHC 33.9 RDW 14.4 Plt Count 152 L D MPV 11.2 Absolute Nucleated RBC 0.000 Nucleated RBC % (auto) 0.0 Sodium 143 Potassium 4.0 Chloride 101 Carbon Dioxide 26 Anion Gap 20 BUN 26 H Creatinine 1.17 Estim Creat Clear Calc 85.3 Estimated GFR > 60 Random Glucose 100 Calcium 9.8 Progress Note: A&P Assessment and plan (1) Atrial fibrillation with rapid ventricular response: Status: Acute Assessment and Plan: New onset atrial fibrillation persistent with rapid ventricular response symptomatic status post TIARA guided cardioversion given his low LV ejection fraction. Discussed management of atrial fibrillation. Continue CPAP therapy. Continue weight loss program. Continue full oral anticoagulation with Eliquis. Aggressively rhythm control approach. Continue amiodarone loading 400 mg b.i.d. for total of 2 weeks followed by 200 mg daily. Continue metoprolol therapy. Follow up in the clinic after Holter monitor in 4 weeks. (2) CHF exacerbation: Status: Acute Assessment and Plan: CHF exacerbation, new onset with cardiomyopathy. Most likely atrial fibrillation tachycardia mediated. Continue aggressive rhythm control approach as above. Ischemic workup should be pursued. Continue metoprolol for neurohormonal modulation. Lasix 20 mg daily. Given softer blood pressure will hold off on Entresto therapy. Advised to monitor blood pressure at home. Daily weight monitoring avoidance of salt loading was discussed. Will follow with him. Time Spent With Patient Time: Total time managing care of this patient today ____ minutes. Progress Note: Quality Stroke Does the patient have a stroke diagnosis?: No Procedures Date of Service Date of Service: 11/04/23
--- NOTE | 2023-11-04 12:24 | MHC.CM.PN ---
Pt is medically cleared for discharge home self-care, pt has arranged for his own transportation home.
== END 2023-11-04 12:43 | disposition home or self-care (01) | DRG 308 ==
LOC: HO.ED 16:48 → HO.EDOVER 19:57 → HO.IMC 11-01 14:36
PROVIDERS: Family Medicine; Internal Medicine Cardiovascular Disease; Admitting Provider Internal Medicine; Emergency Provider Internal Medicine; PCP Internal Medicine; Visit Provider Hospitalist
PROC: 5A2204Z Restoration of Cardiac Rhythm, Single (ICD-10-PCS; CPT 93312; principal; 2023-11-03 10:30)
DX: I48.91 Unspecified atrial fibrillation (principal); I50.21 Acute systolic (congestive) heart failure; D69.3 Immune thrombocytopenic purpura; E87.0 Hyperosmolality and hypernatremia; Z68.42 Body mass index [BMI] 45.0-49.9, adult; I42.9 Cardiomyopathy, unspecified; I11.0 Hypertensive heart disease with heart failure; J45.20 Mild intermittent asthma, uncomplicated; G47.33 Obstructive sleep apnea (adult) (pediatric); E66.01 Morbid (severe) obesity due to excess calories; Z79.51 Long term (current) use of inhaled steroids; Z79.899 Other long term (current) drug therapy
CPT/HCPCS: 36415; 71045; 80048; 80053; 83735; 83880; 84443; 84484; 85025; 85027; 85610; 85730; 93005; 93306; 99285; J1940; J2250; J2704; J3010; Q9957

== ENCOUNTER 2023-10-31 19:51 | Outpatient (BNV) | payer MEDICARE, OTHER, SELFPAY | END 2023-11-03 12:37 | PROVIDERS: Admitting Provider Internal Medicine; Emergency Provider Internal Medicine; PCP Internal Medicine; Visit Provider Internal Medicine Cardiovascular Disease | DX: I34.0 Nonrheumatic mitral (valve) insufficiency (principal); I51.7 Cardiomegaly; I42.2 Other hypertrophic cardiomyopathy; I36.1 Nonrheumatic tricuspid (valve) insufficiency | CPT/HCPCS: 76376; 93010; 93312 ==

== ENCOUNTER 2023-10-31 19:51 | Outpatient (BNV) | payer MEDICARE, OTHER, SELFPAY | END 2023-11-02 07:00 | PROVIDERS: Admitting Provider Internal Medicine; Emergency Provider Internal Medicine; PCP Internal Medicine; Visit Provider Internal Medicine Cardiovascular Disease | DX: I50.20 Unspecified systolic (congestive) heart failure (principal); I48.91 Unspecified atrial fibrillation; I36.1 Nonrheumatic tricuspid (valve) insufficiency | CPT/HCPCS: 93306 ==

== ENCOUNTER → 2023-10-31 19:51 | Outpatient (BNV) | payer MEDICARE, OTHER, SELFPAY | PROVIDERS: Admitting Provider Internal Medicine; Emergency Provider Internal Medicine; PCP Internal Medicine; Visit Provider Internal Medicine | DX: I48.91 Unspecified atrial fibrillation (principal) | CPT/HCPCS: 99223; 99232; 99239 ==

== ENCOUNTER → 2023-10-31 19:51 | Outpatient (BNV) | payer MEDICARE, OTHER, SELFPAY | PROVIDERS: Admitting Provider Internal Medicine; Emergency Provider Internal Medicine; PCP Internal Medicine; Visit Provider Internal Medicine Cardiovascular Disease | DX: I48.91 Unspecified atrial fibrillation (principal); I50.9 Heart failure, unspecified | CPT/HCPCS: 92960; 93010; 99222; 99233 ==

== ENCOUNTER → 2023-10-31 19:51 | Outpatient (BNV) | payer MEDICARE, OTHER, SELFPAY | PROVIDERS: Admitting Provider Internal Medicine; Emergency Provider Internal Medicine; PCP Internal Medicine; Visit Provider Internal Medicine Medical Oncology | DX: D69.3 Immune thrombocytopenic purpura (principal) | CPT/HCPCS: 99222 ==

== ENCOUNTER → 2023-11-22 11:22 | Outpatient (REF) | payer MEDICARE, OTHER, SELFPAY ==
--- NOTE | 2023-11-22 11:25 | HM_ITS ---
Conclusion: 1. Patient was monitored for total period of 3 days 2. Baseline was normal sinus rhythm with average heart rate of 70 beats per minute 3. No significant pauses noted 4. Occasional PVCs noted 5. No patient reported events MTDD
== END ==
LOC: HO.NUCMED 11:22
PROVIDERS: PCP Internal Medicine; Visit Provider Internal Medicine Cardiovascular Disease
DX: I48.91 Unspecified atrial fibrillation (principal); I25.10 Atherosclerotic heart disease of native coronary artery without angina pectoris; I50.9 Heart failure, unspecified; G47.33 Obstructive sleep apnea (adult) (pediatric); Z99.89 Dependence on other enabling machines and devices; R07.9 Chest pain, unspecified
CPT/HCPCS: 93242

== ENCOUNTER → 2023-11-22 11:25 | Outpatient (BNV) | payer MEDICARE, OTHER, SELFPAY | PROVIDERS: PCP Internal Medicine; Visit Provider Internal Medicine Cardiovascular Disease | DX: I49.3 Ventricular premature depolarization (principal) | CPT/HCPCS: 93244 ==

== ENCOUNTER → 2023-11-29 07:41 | Outpatient (REF) | payer MEDICARE, OTHER, SELFPAY ==
--- NOTE | ~2023-11-29 | NM_ITS ---
Lexiscan Myocardial perfusion study Indication: Chest pain, assess for coronary disease and ischemia Technique: The patient was brought in for a Lexiscan perfusion study on 11/29/2023 and was injected 0.4 mg of Lexiscan intravenously. Within a minute of this injection 45 mCi of sestamibi was given intravenously. Images were obtained using the SPECT gamma camera interlaced with the gating device. Images were obtained in supine position. Resting perfusion study was performed on 11/30/2023. Patient was administered 45 mCi of sestamibi intravenously at rest. Images were then obtained in supine position. Images were processed with the software and compared side to side in short axis, horizontal long axis and vertical long axis views. Total DLP 147mGy-cm. Findings: Raw acquisition reviewed. The stress perfusion study showed diminished tracer uptake along the inferior wall most prominent towards the base. There is improvement with CT attenuation correction and hence could've components of diaphragmatic attenuation artifact. The gated study shows normal LV systolic function with calculated LVEF of 55%. LV cavity is normal in size. The gated study shows normal wall thickening and contraction of segments. . Resting study shows diminished tracer uptake in the inferior wall. With CT attenuation correction, there is improvement suggestive of diaphragmatic attenuation artifact. Gating at rest reveals normal wall motion with ejection fraction at 53%. The findings are consistent with fixed inferior wall perfusion defect likely from diaphragmatic attenuation artifact. NM/NM cardiolite stress test Impression: 1. Myocardial perfusion imaging study shows no evidence of ischemia. Fixed inferior defect likely from diaphragmatic attenuation artifact. 2. Gated LVEF is 55% during stress and 53% during rest. 3. Transient ischemic dilatation not present. EKG component of the test reported separately.
== END ==
LOC: HO.CARD 07:41
PROVIDERS: PCP Internal Medicine; Visit Provider Internal Medicine Cardiovascular Disease
DX: Z13.89 Encounter for screening for other disorder (principal)
CPT/HCPCS: 78452; A9500

== ENCOUNTER → 2023-11-29 07:42 | Outpatient (REF) | payer MEDICARE, OTHER, SELFPAY ==
--- NOTE | 2023-11-29 07:44 | CA_ITS ---
Acquisition Time: 2023-11-29 08:05:53 Total Exercise Time: 00:02:00 Test Indications: CHEST PAIN Medications: Protocol: LEXISCAN Max HR: 081 BPM 54% of Pred: 150 BPM Max BP: 126/068 mmHG Max Work Load: 1.0 METS Pharmacological stress test with Lexiscan injection while sitting, without anginal symptoms. without arrhythmias, with normotensive response to injection, with nondiagnoisitic EKGs . Nuclear images pending. Test reviewed with Dr. Castro. Referred By: Branden Gaston Overread By: Jojo Pulliam
== END ==
LOC: HO.CARD 07:42
PROVIDERS: PCP Internal Medicine; Visit Provider Internal Medicine Cardiovascular Disease
DX: I48.91 Unspecified atrial fibrillation (principal); I25.10 Atherosclerotic heart disease of native coronary artery without angina pectoris; I50.9 Heart failure, unspecified; G47.33 Obstructive sleep apnea (adult) (pediatric); Z99.89 Dependence on other enabling machines and devices
CPT/HCPCS: 78452; 93017; A9500; J0280; J2785

== ENCOUNTER → 2023-11-29 07:44 | Outpatient (BNV) | payer MEDICARE, OTHER, SELFPAY | PROVIDERS: PCP Internal Medicine; Visit Provider Nurse Practitioner | DX: R07.9 Chest pain, unspecified (principal) | CPT/HCPCS: 78452; 93016; 93018 ==

== ENCOUNTER 2023-12-05 14:07 | Outpatient (REF) | payer MEDICARE, OTHER, SELFPAY ==
[2023-12-05 16:37] LABS: Anion Gap 13 (12-20); Blood Urea Nitrogen 25 mg/dL (9-16); Calcium 10.8 mg/dL (8.4-10.2); Carbon Dioxide 28 mmol/L (22-29); Chloride 108 mmol/L (96-108); Estimated Glomerular Filt Rate 50; Glucose Random 97 mg/dL (60-115); Potassium 4.2 mmol/L (3.3-5.1); Sodium 145 mmol/L (135-145)
[2023-12-05 16:41] LABS: B Type Natriuretic Peptide 18 pg/mL (<100)
== END 2023-12-05 14:08 | disposition home or self-care (01) ==
LOC: HO.LAB 14:07
PROVIDERS: PCP Internal Medicine; Visit Provider Internal Medicine Cardiovascular Disease
DX: I48.0 Paroxysmal atrial fibrillation (principal); I50.9 Heart failure, unspecified; I42.9 Cardiomyopathy, unspecified
CPT/HCPCS: 36415; 80048; 83880; 93005; 99212

== ENCOUNTER 2023-12-05 14:07 | Outpatient (AMB) | payer MEDICARE, OTHER, SELFPAY ==
--- NOTE | 2023-12-05 14:13 | MHC.OFFVIS ---
Vital Signs 12/05/23 14:17 Height 5 ft 10 in Weight 297 lb 9.985 oz BMI 42.7 BP 120/80 Blood Pressure Location Lt brachial Position Sitting Pulse 78 Intake Visit Reasons: 4 wk f/up holter/ mibi Intake Note: 4 week follow-up after holter and mibi with ekg feelng good Gas Pumper Required: No Scullion Chief: Scullion Chief Present Accompanied by: Spouse Allergies No Known Allergies Allergy (Verified 10/31/23 16:38) HPI Comments Details: CHF Donald comes for follow-up after recent hospitalization very was admitted with new onset atrial fibrillation and congestive heart failure syndrome. Subsequent workup suggestive of moderate to severe LV systolic dysfunction undergoing TIARA guided cardioversion. He was then started on oral anticoagulation therapy despite his assisted history of ITP and is being closely monitored with platelet counts. He is also started on amiodarone therapy for maintaining rhythm given his left atrial enlargement. He is doing well and is been monitoring his EKG on a daily basis through phone based EKG device. Maintaining sinus rhythm. His blood pressures been well controlled. He is currently still taking diuretic therapy and has had improved leg swelling as well as improved shortness of breath. He is started golfing and able to do that still has exertional fatigue and shortness of breath but he is working with it. His blood pressures been well controlled. Denies any prolonged irregular heartbeat or palpitations. Denies any chest pain. Myocardial perfusion imaging was within normal limits with improved gated LVEF to 50% compared to his echo LVEF of about 30-35%. [facility] Medical History (Updated 12/05/23 @ 14:51 by Branden Gaston MD) Congestive heart failure Paroxysmal atrial fibrillation Obesity Carpal tunnel syndrome, left Gout Right bundle branch block (RBBB) with left anterior fascicular block MALIHA on CPAP Chronic ITP (idiopathic thrombocytopenic purpura) Malignant melanoma of skin of arm Basal cell carcinoma (BCC) in situ of skin Anemia Kidney stones Asthma Hypertension Surgical History Hx of cystoscopy Hx of lithotripsy Hx of colonoscopy History of hernia surgery H/O bilateral hip replacements Family History Father No problems noted. Mother No problems noted. Family/Other No problems noted. Sister Pancreatic cancer Social History Household Members: Spouse Housing: House Are you a primary medicare contact specialist to a significant other at home: No Do you presently have visiting nurse or other home services: No Alcohol intake: current Alcohol intake frequency: a few times a month Alcohol type: beer Patient Tobacco Use Status: Never used Tobacco service: No Current occupational status: retired Review of Systems Const Denies chills, Denies fatigue, Denies fever(s), Denies frequent falls, Denies weakness, Denies weight gain and Denies weight loss ENT Denies dizziness Card Denies chest pain, Denies leg edema, Denies lightheadedness, Denies palpitations, Denies dyspnea, Denies dyspnea on exertion, Denies orthopnea and Denies other (loss of consciousness) Resp Denies cough, Denies dyspnea and Denies dyspnea on exertion GI Denies hematochezia and Denies change in stool character Musc Denies abnormal gait, Denies muscle weakness, Denies numbness, Denies radiating pain into limb and Denies tingling Neuro Denies abnormal gait, Denies dizziness, Denies frequent falls, Denies numbness, Denies tingling and Denies weakness Endo Denies fatigue and Denies palpitations Physical Exam Vital Signs: Last Vital Signs Pulse 78 12/05/23 14:17 BP 120/80 12/05/23 14:17 BMI result Body Mass Index 42.7 Const General: cooperative, comfortable, no acute distress, alert and awake Nutritional Appearance: obese Orientation/consciousness: patient oriented x3 Limitations: no limitations Neck Neck: Yes trachea midline, Yes supple and Yes no JVD Cardio Jugular venous distension: no JVD Rate: regular rate Rhythm: regular rhythm Heart sounds: S1 normal heart sound present, S2 normal heart sound present, no click, no gallops and no rubs GI Auscultation: normal bowel sounds Skin General skin exam: no rashes or lesions noted Neuro General: patient oriented x3 and no focal motor deficits Extrem General: No clubbing, No cyanosis, No edema and Yes venous stasis dermatitis Office Procedures EKG Details: EKG shows normal sinus rhythm with right bundle and left anterior fascicular block with QT interval of 428 milliseconds [id number], Complete Assessment & Plan Assessment & Plan (1) Paroxysmal atrial fibrillation: Code(s): I48.0 - Paroxysmal atrial fibrillation Category: Medical Plan: Donald recently admitted with new onset atrial fibrillation with heart failure syndrome with moderate to severe LV systolic dysfunction. He subsequently underwent a TIARA guided cardioversion during hospitalization has been started on amiodarone therapy. Since then he has been doing extremely well maintaining rhythm. Recent Holter monitor shows good rate control and rhythm control. His nuclear study shows no evidence of myocardial ischemia with improved gated LVEF, see below. Will continue pursue rhythm control approach with significant improvement in symptoms as well as heart failure syndrome. Continue amiodarone therapy with eventual plan to taper and switch his antiarrhythmic drug therapy to lesser toxic agent. Continue full oral anticoagulation, currently on Eliquis 5 mg b.i.d.. Will obtain blood work today. Continue avoid stimulants. Continue monitor EKG with his smart phone based device. Advised to call me if he has recurrent atrial fibrillation. Continue CPAP therapy. He is encouraged to continue to participate in physical activity and continue participate in weight loss program. (2) Congestive heart failure: Code(s): I50.9 - Heart failure, unspecified Category: Medical Plan: Recent heart failure syndrome which is doing significantly well clinically since rhythm control approach. He is gated LVEF seems to have improved compared to his echocardiogram EF of 30 35%. Will follow-up limited echocardiogram in 6 weeks time. Continue rhythm control approach. Continue current diuretic regimen. Daily weight monitoring avoidance of salt loading was discussed. Will follow-up BMP and BNP today. Continue metoprolol therapy for neurohormonal modulation. Will follow up in the clinic in 3 months time, sooner p.r.n.. Thank you for allowing me to partake in his care Orders: Orders Basic Metabolic Panel Today I50.9 - Heart failure, unspecified CA echo limited 6 Weeks I42.9 - Cardiomyopathy, unspecified B Type Natriuretic Peptide Today I50.9 - Heart failure, unspecified Coding Level of Care Code Est Pt Level 4 (24813) Diagnoses Paroxysmal atrial fibrillation I48.0 Congestive heart failure I50.9 CPT Codes EKG - CPT: 42835-[id number], Complete ([id number])
[2023-12-05 14:17] VITALS: BP 120/80; PULSE 78; BMI 42.7
== END 2023-12-05 14:49 | disposition home or self-care (01) ==
PROVIDERS: PCP Internal Medicine; Visit Provider Internal Medicine Cardiovascular Disease
DX: I48.0 Paroxysmal atrial fibrillation (principal); I50.9 Heart failure, unspecified
CPT/HCPCS: 93010; 99214

== ENCOUNTER → 2024-01-17 09:51 | Outpatient (REF) | payer MEDICARE, OTHER, SELFPAY ==
--- NOTE | 2024-01-17 09:55 | CA_ITS ---
Transthoracic Echocardiogram Patient (Last, First, Middle): Donald Darling E Gender: Male Date of : 1955 Age: 68 Procedure Date: 01/17/2024 Procedure Type: Transthoracic Echocardiogram Location: OP Height: 177.8 cm Weight: 133.81 kg BSA: 2.46 m2 Heart Rate: 66 bpm BP: 130 / 85 mmHg Cattyman: FRED Referring MD: Branden Gaston MD Frozen Food Selector: Branden Gaston MD Symptoms: I42.9 - Cardiomyopathy, unspecified Study Quality: Adequate ECG Rhythm: Arrhythmia Conclusions: - Normal LV ejection fraction 55-60% with impaired relaxation filling pattern Findings Left Ventricle Normal left ventricular size and systolic function. There is mildly increased left ventricular wall thickness. The visually estimated ejection fraction is between 55-60%. Spectral Doppler is indicative of an impaired relaxation filling pattern. E/E prime ratio is between 8 and 15 consistent with indeterminate filling pressures. Prior Study Comparison Significant changes compared to prior study dated: 11/03/2023. LV ejection fraction has normalized Measurements 2D Linear Measurements IVSd: 1.27 0.6-0.9/0.6-1.0 cm LVIDd: 5.45 3.9-5.3/4.2-5.9 cm LVIDd Index: 2.22 2.4-3.2/2.2-3.1 cm/m2 LVIDs: 3.00 2.0-3.6 cm LVPWd: 1.38 0.7-1.1 cm LV Mass: 384.34 67-162/88-224 g LV Mass Index: 156.24 43-95/49-115 g/m2 LVOT Diam: 2.50 3.0+(-)1.3 cm 2D Systolic Function EF 4C: 51.90 >55% EF 2C: 57.00 >55% EF BiP: 56.30 >55% Mitral Valve MV Pk E: 0.74 MV PK A: 0.84 MV Decel Time: 303.00 E/A: 0.90 E'Lateral: 9.25 E'Medial: 5.87 E/E' Med: 12.60 E/E' Lat: 8.00 PHT: 89.00 MVA PHT: 2.47 Decel [place]: 2.43 LVOT LVOT Pk Demetrio: 0.97 LVOT Mn Demetrio: 0.74 LVOT VTI: 0.21 LVOT Pk Grad: 4.00 LVOT Mn Grad: 3.00 LVOT Diam: 2.50 LVOT Area: 4.91 Diastolic Function MV Pk E: 0.74 MV Pk A: 0.84 E/A: 0.90 E'Medial: 5.87 E/E' Med: 12.60 E' Laterial: 9.25 E/E' Lat: 8.00 Updated in Other Vendor System with Status of Final Branden Gaston MD electronically signed on 01/18/2024 12:37:05 PM with status of Final
== END ==
LOC: HO.CARD 09:51
PROVIDERS: PCP Internal Medicine; Visit Provider Internal Medicine Cardiovascular Disease
DX: I42.9 Cardiomyopathy, unspecified (principal)
CPT/HCPCS: 93308

== ENCOUNTER → 2024-01-17 09:55 | Outpatient (BNV) | payer MEDICARE, OTHER, SELFPAY | PROVIDERS: PCP Internal Medicine; Visit Provider Internal Medicine Cardiovascular Disease | DX: I42.9 Cardiomyopathy, unspecified (principal) | CPT/HCPCS: 93308; 93321; 93325 ==

== ENCOUNTER 2024-03-12 08:32 | Outpatient (AMB) | payer MEDICARE, OTHER, SELFPAY ==
[2024-03-12 08:49] VITALS: BP 132/80; PULSE 69; BMI 42.1
--- NOTE | 2024-03-12 08:49 | MHC.OFFVIS ---
Vital Signs 03/12/24 08:49 Height 5 ft 10 in Weight 293 lb 3.437 oz BMI 42.1 BP 132/80 Blood Pressure Location Lt brachial Position Sitting Pulse 69 Intake Visit Reasons: 3 mth f/up Intake Note: 3 month follow-up with ekg feeling good Sign Hanger Supervisor Required: No Voice Data Communications Engineer: Voice Data Communications Engineer Present Accompanied by: Spouse Allergies No Known Allergies Allergy (Verified 01/21/24 08:18) Medication List - Last Reconciled 03/12/24 by Branden Gaston MD amiodarone 200 mg PO DAILY 90 days apixaban (Eliquis) 5 mg PO BID cetirizine (Zyrtec) 10 mg PO DAILY cholecalciferol (vitamin D3) (Vitamin D3) 50 mcg PO DAILY cyanocobalamin (vitamin B-12) (Vitamin B-12) 1,000 mcg PO DAILY fluticasone propionate 50 mcg/actuation 2 sprays intranasal BEDTIME furosemide (Lasix) 20 mg PO DAILY metoprolol tartrate 50 mg PO BID montelukast (Singulair) 10 mg PO BEDTIME multivitamin 1 tab PO DAILY prednisone 60 mg (3 x 20 mg) PO DAILY HPI Comments Details: Donald comes for follow-up of his atrial fibrillation congestive heart failure syndrome. He is accompanied by his . He has been doing extremely well. He is back to [email or web address]) and back to his original functional status. He said after stopping the Lasix he started noticing more leg edema and therefore has started taking Lasix every other day again. Maintaining weight around 287 lb which is much improved compared to when he had presented to the hospital with heart failure above 300. He has no shortness of breath, orthopnea, PND. He is monitoring his EKGs at home and notices sinus rhythm. His echocardiogram shows normalized LV ejection fraction. His platelet count has improved. He uses CPAP regularly. Denies any exertional chest pain. Myocardial perfusion imaging was normal. No lightheadedness, syncope. No prolonged palpitation irregular heartbeat. No bleeding issues or neurologic events. [facility] Medical History (Updated 03/12/24 @ 09:53 by Branden Gaston MD) CHF exacerbation Paroxysmal atrial fibrillation Obesity Carpal tunnel syndrome, left Gout Right bundle branch block (RBBB) with left anterior fascicular block MALIHA on CPAP Chronic ITP (idiopathic thrombocytopenic purpura) Malignant melanoma of skin of arm Basal cell carcinoma (BCC) in situ of skin Anemia Kidney stones Asthma Hypertension Surgical History Hx of cystoscopy Hx of lithotripsy Hx of colonoscopy History of hernia surgery H/O bilateral hip replacements Family History Father No problems noted. Mother No problems noted. Family/Other No problems noted. Sister Pancreatic cancer Social History Household Members: Spouse Housing: House Are you a primary landcare officer to a significant other at home: No Do you presently have visiting nurse or other home services: No Alcohol intake: current Alcohol intake frequency: a few times a month Alcohol type: beer Patient Tobacco Use Status: Never used Tobacco service: No Current occupational status: retired Review of Systems Const Denies chills, Denies fatigue, Denies fever(s), Denies frequent falls, Denies weakness, Denies weight gain and Denies weight loss ENT Denies dizziness Card Denies chest pain, Denies leg edema, Denies lightheadedness, Denies palpitations, Denies dyspnea, Denies dyspnea on exertion, Denies orthopnea and Denies other (loss of consciousness) Resp Denies cough, Denies dyspnea and Denies dyspnea on exertion GI Denies hematochezia and Denies change in stool character Musc Denies abnormal gait, Denies muscle weakness, Denies numbness, Denies radiating pain into limb and Denies tingling Neuro Denies abnormal gait, Denies dizziness, Denies frequent falls, Denies numbness, Denies tingling and Denies weakness Endo Denies fatigue and Denies palpitations Physical Exam Vital Signs: Last Vital Signs Pulse 69 03/12/24 08:49 BP 132/80 03/12/24 08:49 BMI result Body Mass Index 42.1 Const General: cooperative, comfortable, no acute distress, alert and awake Nutritional Appearance: obese Orientation/consciousness: patient oriented x3 Limitations: no limitations Neck Neck: Yes trachea midline, Yes supple and Yes no JVD Cardio Jugular venous distension: no JVD Rate: regular rate Rhythm: regular rhythm Heart sounds: S1 normal heart sound present, S2 normal heart sound present, no click, no gallops and no rubs GI Auscultation: normal bowel sounds Skin General skin exam: no rashes or lesions noted Neuro General: patient oriented x3 and no focal motor deficits Extrem General: No clubbing, No cyanosis, No edema and Yes venous stasis dermatitis Office Procedures EKG Details: EKG shows normal sinus rhythm with right bundle and left anterior fascicular block consistent with bifascicular block with moderate LVH criteria, unchanged from before. [id number], Complete Assessment & Plan Assessment & Plan (1) Paroxysmal atrial fibrillation: Code(s): I48.0 - Paroxysmal atrial fibrillation Category: Medical Plan: Paroxysmal atrial fibrillation which has remained control and suppressed on amiodarone therapy maintaining rhythm. This has led to normalization of his heart failure syndrome as well as normalization of LV systolic function. Has done extremely well with rhythm control approach and discussed about continuing aggressively to pursue this. I would like to switch him from long-term amiodarone therapy to alternative agent to reduce long-term toxicity of amiodarone. Understands agrees. We discussed about possibility of pursuing ablation. He wants to think about it although after long discussion thought that he would rather prefer an alternative agent and if he has recurrent atrial fibrillation consider ablation as he is worried about his thrombocytopenia which is appropriate. Has thrombocytopenia count has remained great on current therapy. Continue full oral anticoagulation Eliquis. Will switch him to flecainide 150 mg b.i.d. 3 days after holding his amiodarone. Continue metoprolol therapy. Avoidance of stimulants was discussed. Continue monitor EKGs and advised to call me if he has recurrent atrial fibrillation. He understands agrees. Management of atrial fibrillation was discussed in details. He is encouraged to continue to participate in more aggressive weight loss program. Continue CPAP therapy. Continue aggressive blood pressure control. (2) Congestive heart failure: Code(s): I50.9 - Heart failure, unspecified Category: Medical Plan: Congestive heart failure syndrome in the setting of atrial fibrillation with significantly reduced LV ejection fraction with normalized LV ejection fraction but still having tendency for heart failure with fluid gain. Continue current low-dose Lasix therapy. Daily weight monitoring avoidance of salt loading was discussed. Additional diuretics as need be. Continue rhythm control approach which has helped him most significantly at this point in time. Advised to continue to participate in regular physical activity and weight loss program. Continue CPAP therapy. Continue aggressive blood pressure control which is currently well optimized. (3) CAD (coronary artery disease): Code(s): I25.10 - Atherosclerotic heart disease of [place] coronary artery without angina pectoris Category: Medical Plan: CAD, nonobstructive by coronary CTA. Currently on full oral anticoagulation Eliquis and therefore would avoid aspirin therapy. Continue statin therapy with target goal LDL less than 70 mg/dL. Current myocardial perfusion imaging was within normal limits. (4) Bifascicular block: Code(s): I45.2 - Bifascicular block Category: Medical Plan: Bifascicular block which is stable. We discussed management. No interventions required. Advised to call me with any symptoms of syncope or lightheadedness or significant bradycardia. Will follow up in the clinic in 10 days for EKG and in 3 months with me. Thank you for allowing me to partake in his care Medications: New flecainide Start 03/15/2024 150 mg PO Q12H 60 tabs 5RF Discontinued amiodarone Discontinued Reason: Doctor's Order 200 mg PO DAILY 90 days 90 tabs 1RF Coding Level of Care Code Est Pt Level 4 (18388) Diagnoses Paroxysmal atrial fibrillation I48.0 Congestive heart failure I50.9 CAD (coronary artery disease) I25.10 Bifascicular block I45.2 CPT Codes EKG - CPT: 41828-[id number], Complete ([id number])
== END 2024-03-12 09:20 | disposition home or self-care (01) ==
PROVIDERS: PCP Internal Medicine; Visit Provider Internal Medicine Cardiovascular Disease
DX: I48.0 Paroxysmal atrial fibrillation (principal); I50.9 Heart failure, unspecified; I25.10 Atherosclerotic heart disease of native coronary artery without angina pectoris; I45.2 Bifascicular block
CPT/HCPCS: 93010; 99214

== ENCOUNTER → 2024-03-12 08:32 | Outpatient (BNVA) | payer MEDICARE, OTHER, SELFPAY | PROVIDERS: PCP Internal Medicine; Visit Provider Internal Medicine Cardiovascular Disease | DX: I48.0 Paroxysmal atrial fibrillation (principal); I11.0 Hypertensive heart disease with heart failure; I45.2 Bifascicular block; I50.9 Heart failure, unspecified; I25.10 Atherosclerotic heart disease of native coronary artery without angina pectoris | CPT/HCPCS: 93005; 99212 ==

== ENCOUNTER → 2024-03-24 08:23 | Outpatient (BNVA) | payer MEDICARE, OTHER, SELFPAY | PROVIDERS: PCP Internal Medicine; Visit Provider Internal Medicine Cardiovascular Disease ==

== ENCOUNTER → 2024-04-07 08:12 | Outpatient (BNVA) | payer MEDICARE, OTHER, SELFPAY | PROVIDERS: PCP Internal Medicine; Visit Provider Internal Medicine Cardiovascular Disease ==

== ENCOUNTER 2024-06-26 09:29 | Outpatient (AMB) | payer MEDICARE, OTHER, SELFPAY ==
[2024-06-26 09:30] VITALS: BP 130/76; PULSE 68; BMI 43.0
--- NOTE | 2024-06-26 09:30 | A.OFFVIS_ITS ---
Vital Signs 06/26/24 09:30 Height 5 ft 10 in Weight 299 lb 13.259 oz BMI 43.0 BP 130/76 Blood Pressure Location Lt brachial Position Sitting Pulse 68 Intake Visit Reasons: 3 mth f/up Intake Note: 3 month follow-up with ekg c/o right leg swelling Casino Surveillance Officer Required: No Embedder: Embedder Present Accompanied by: Spouse Allergies flecainide Adverse Reaction (Intermediate, Verified 03/24/24 13:49) EKG abnormality Medication List - Last Reconciled 06/26/24 by Branden Gaston MD apixaban (Eliquis) 5 mg PO BID cetirizine (Zyrtec) 10 mg PO DAILY cholecalciferol (vitamin D3) (Vitamin D3) 50 mcg PO DAILY cyanocobalamin (vitamin B-12) (Vitamin B-12) 1,000 mcg PO DAILY dronedarone (Multaq) 400 mg PO Q12H fluticasone propionate 50 mcg/actuation 2 sprays intranasal BEDTIME furosemide (Lasix) 20 mg PO DAILY metoprolol tartrate 50 mg PO BID montelukast (Singulair) 10 mg PO BEDTIME multivitamin 1 tab PO DAILY prednisone 60 mg PO DAILY PRN HPI Comments Details: Donald comes for follow-up. He is accompanied by his . He did undergo EP evaluation and is scheduled to undergo ablation on July 11. He denies any clear worsening shortness of breath but notices increased weight gain of about 5-6 lb over the last few weeks and also has noticed increased leg swelling more on the left than the right. Denies any abdominal distension. Denies any orthopnea, PND. Denies any chest pain. No prolonged palpitation irregular heartbeat. No bleeding issues or neurologic events. He had thrombocytopenia and did receive treatment for that and his platelet count has improved to 130,000 thirty thousand. [facility] Medical History (Updated 06/26/24 @ 10:05 by Branden Gaston MD) (HFpEF) heart failure with preserved ejection fraction CHF exacerbation Paroxysmal atrial fibrillation Obesity Carpal tunnel syndrome, left Gout Right bundle branch block (RBBB) with left anterior fascicular block MALIHA on CPAP Chronic ITP (idiopathic thrombocytopenic purpura) Malignant melanoma of skin of arm Basal cell carcinoma (BCC) in situ of skin Anemia Kidney stones Asthma Hypertension Surgical History Hx of cystoscopy Hx of lithotripsy Hx of colonoscopy History of hernia surgery H/O bilateral hip replacements Family History Father No problems noted. Mother No problems noted. Family/Other No problems noted. Sister Pancreatic cancer Social History Household Members: Spouse Housing: House Are you a primary healthcare risk control consultant to a significant other at home: No Do you presently have visiting nurse or other home services: No Alcohol intake: current Alcohol intake frequency: a few times a month Alcohol type: beer Patient Tobacco Use Status: Never used Tobacco service: No Current occupational status: retired Review of Systems Const Denies chills, Denies fatigue, Denies fever(s), Denies frequent falls, Denies weakness, Denies weight gain and Denies weight loss ENT Denies dizziness Card Denies chest pain, Denies leg edema, Denies lightheadedness, Denies palpitations, Denies dyspnea, Denies dyspnea on exertion, Denies orthopnea and Denies other (loss of consciousness) Resp Denies cough, Denies dyspnea and Denies dyspnea on exertion GI Denies hematochezia and Denies change in stool character Musc Denies abnormal gait, Denies muscle weakness, Denies numbness, Denies radiating pain into limb and Denies tingling Neuro Denies abnormal gait, Denies dizziness, Denies frequent falls, Denies numbness, Denies tingling and Denies weakness Endo Denies fatigue and Denies palpitations Physical Exam Vital Signs: Last Vital Signs Pulse 68 06/26/24 09:30 BP 130/76 06/26/24 09:30 BMI result Body Mass Index 43.0 Const General: cooperative, comfortable, no acute distress, alert and awake Nutritional Appearance: obese Orientation/consciousness: patient oriented x3 Limitations: no limitations Neck Neck: Yes trachea midline, Yes supple and Yes no JVD (+ AJR) Cardio Jugular venous distension: no JVD Rate: regular rate Rhythm: regular rhythm Heart sounds: S1 normal heart sound present, S2 normal heart sound present, no click, no gallops and no rubs GI Auscultation: normal bowel sounds Skin General skin exam: no rashes or lesions noted Neuro General: patient oriented x3 and no focal motor deficits Extrem General: No clubbing, No cyanosis, Yes edema and Yes venous stasis dermatitis Office Procedures EKG Details: EKG shows sinus rhythm with right bundle branch block as well as left anterior fascicular block consistent with bifascicular block, unchanged [id number], Complete Assessment & Plan Assessment & Plan (1) (HFpEF) heart failure with preserved ejection fraction: Code(s): I50.30 - Unspecified diastolic (congestive) heart failure Category: Medical Plan: Heart failure preserved ejection fraction, clinically euvolemic and well compen sated. Has done very well with rhythm control approach. Appears mildly fluid overloaded today's exam. Could be related to prednisone therapy. Has gained about 5-6 lb. Recommend to take extra Lasix up to 40 mg for the next few days till he loses this extra 5-6 lb of weight gain. Continue rhythm control approach. Management of congestive heart failure was discussed in details. Daily weight monitoring avoidance salt loading was discussed. (2) Paroxysmal atrial fibrillation: Code(s): I48.0 - Paroxysmal atrial fibrillation Category: Medical Plan: Paroxysmal atrial fibrillation has done extremely well with rhythm control approach. Continue pursue rhythm control approach. LV ejection fraction has normalized. Agree with pursuing ablation as a means of controlling his atrial fibrillation in the future. I would not stop his Multaq therapy as he had given his structural abnormality with moderately dilated left atrium as well as left ventricular hypertrophy. Discussed with him. Continue full oral anticoagulation, currently on Eliquis 5 mg b.i.d.. Continue monitor platelet counts religiously as he is doing with Hematology. (3) CAD (coronary artery disease): Code(s): I25.10 - Atherosclerotic heart disease of [place] coronary artery without angina pectoris Category: Medical Plan: CAD, nonobstructive. Continue medical therapy. Currently on full oral anticoagulation Eliquis. Blood pressure is well optimized. Target goal LDL less than 100 mg/dL. Will follow up in the clinic in 4 months time, sooner p.r.n.. Thank you for allowing me to partake in his care Medications: Changed From prednisone Take as directed. 60 mg (3 x 20 mg) PO DAILY 60 tabs 4RF To prednisone Take as directed. 60 mg PO DAILY PRN Coding Level of Care Code Est Pt Level 4 (23376) Complex EM visit Add On G2211 Diagnoses (HFpEF) heart failure with preserved ejection fraction I50.30 Paroxysmal atrial fibrillation I48.0 CAD (coronary artery disease) I25.10 CPT Codes EKG - CPT: 70172-[id number], Complete ([id number])
== END 2024-06-26 10:06 | disposition home or self-care (01) ==
PROVIDERS: PCP Internal Medicine; Visit Provider Internal Medicine Cardiovascular Disease
DX: I50.30 Unspecified diastolic (congestive) heart failure (principal); I48.0 Paroxysmal atrial fibrillation; I25.10 Atherosclerotic heart disease of native coronary artery without angina pectoris
CPT/HCPCS: 93010; 99214; G2211

== ENCOUNTER → 2024-06-26 09:29 | Outpatient (BNVA) | payer MEDICARE, OTHER, SELFPAY | PROVIDERS: PCP Internal Medicine; Visit Provider Internal Medicine Cardiovascular Disease | DX: I50.30 Unspecified diastolic (congestive) heart failure (principal); I48.0 Paroxysmal atrial fibrillation; I25.10 Atherosclerotic heart disease of native coronary artery without angina pectoris; I45.2 Bifascicular block; R94.31 Abnormal electrocardiogram [ECG] [EKG] | CPT/HCPCS: 93005; 99212 ==

== ENCOUNTER → 2024-07-28 14:34 | Outpatient (BNVA) | payer MEDICARE, OTHER, SELFPAY | PROVIDERS: PCP Internal Medicine; Visit Provider Internal Medicine Cardiovascular Disease ==

== ENCOUNTER 2024-10-27 14:29 | Outpatient (AMB) | payer MEDICARE, OTHER, SELFPAY ==
[2024-10-27 14:35] VITALS: BP 122/80; PULSE 86; BMI 44.0
--- NOTE | 2024-10-27 14:35 | MHC.OFFVIS ---
Vital Signs 10/27/24 14:35 Height 5 ft 10 in Weight 306 lb 7.08 oz BMI 44.0 BP 122/80 Blood Pressure Location Lt brachial Position Sitting Pulse 86 Intake Visit Reasons: 4 mth fu (r/s) Intake Note: 4 month follow-up with ekg feeling good Wire Frame Dipper Required: No Hearing Healthcare Practitioner: Hearing Healthcare Practitioner Present Accompanied by: Spouse Allergies flecainide Adverse Reaction (Intermediate, Verified 07/21/24 09:07) EKG abnormality Medication List - Last Reconciled 10/27/24 by Branden Gaston MD amiodarone 200 mg PO ONCE apixaban (Eliquis) 5 mg PO BID cetirizine (Zyrtec) 10 mg PO DAILY cholecalciferol (vitamin D3) (Vitamin D3) 50 mcg PO DAILY cyanocobalamin (vitamin B-12) (Vitamin B-12) 1,000 mcg PO DAILY fluticasone propionate 50 mcg/actuation 2 sprays intranasal BEDTIME furosemide (Lasix) 20 mg PO DAILY PRN 90 days MDD 40 metoprolol tartrate 50 mg PO BID montelukast (Singulair) 10 mg PO BEDTIME multivitamin 1 tab PO DAILY prednisone 60 mg (3 x 20 mg) PO DAILY PRN HPI Comments Details: Donald comes for follow-up. He presents here with his . He is scheduled to undergo ablation in December. He has had worsening swelling in his leg and has had to take multiple times extra Lasix at 40 mg daily. But no hospitalization related to heart failure. No worsening shortness of breath, orthopnea, PND. He only recently started becoming more active and playing golf and notices some fatigue and tiredness. Over the winter he was very less active. He is not having any significant palpitation irregular heartbeat. Taking all his medications. No bleeding issues or neurologic events. [facility] Medical History (HFpEF) heart failure with preserved ejection fraction CHF exacerbation Paroxysmal atrial fibrillation Obesity Carpal tunnel syndrome, left Gout Right bundle branch block (RBBB) with left anterior fascicular block MALIHA on CPAP Chronic ITP (idiopathic thrombocytopenic purpura) Malignant melanoma of skin of arm Basal cell carcinoma (BCC) in situ of skin Anemia Kidney stones Asthma Hypertension Surgical History Hx of cystoscopy Hx of lithotripsy Hx of colonoscopy History of hernia surgery H/O bilateral hip replacements Family History Father No problems noted. Mother No problems noted. Family/Other No problems noted. Sister Pancreatic cancer Social History Household Members: Spouse Housing: House Are you a primary healthcare recruiter to a significant other at home: No Do you presently have visiting nurse or other home services: No Alcohol intake: current Alcohol intake frequency: a few times a month Alcohol type: beer Patient Tobacco Use Status: Never used Tobacco service: No Current occupational status: retired Review of Systems Const Denies chills, Denies fatigue, Denies fever(s), Denies frequent falls, Denies weakness, Denies weight gain and Denies weight loss ENT Denies dizziness Card Denies chest pain, Denies leg edema, Denies lightheadedness, Denies palpitations, Denies dyspnea, Denies dyspnea on exertion, Denies orthopnea and Denies other (loss of consciousness) Resp Denies cough, Denies dyspnea and Denies dyspnea on exertion GI Denies hematochezia and Denies change in stool character Musc Denies abnormal gait, Denies muscle weakness, Denies numbness, Denies radiating pain into limb and Denies tingling Neuro Denies abnormal gait, Denies dizziness, Denies frequent falls, Denies numbness, Denies tingling and Denies weakness Endo Denies fatigue and Denies palpitations Physical Exam Vital Signs: Last Vital Signs Pulse 86 10/27/24 14:35 BP 122/80 10/27/24 14:35 BMI result Body Mass Index 44.0 Const General: cooperative, comfortable, no acute distress, alert and awake Nutritional Appearance: obese Orientation/consciousness: patient oriented x3 Limitations: no limitations Neck Neck: Yes trachea midline, Yes supple and Yes no JVD (+ AJR) Cardio Jugular venous distension: no JVD Rate: regular rate Rhythm: regular rhythm Heart sounds: S1 normal heart sound present, S2 normal heart sound present, no click, no gallops and no rubs GI Auscultation: normal bowel sounds Skin General skin exam: no rashes or lesions noted Neuro General: patient oriented x3 and no focal motor deficits Extrem General: No clubbing, No cyanosis, Yes edema and Yes venous stasis dermatitis Office Procedures EKG Details: EKG shows normal sinus rhythm with bifascicular block, right bundle and left anterior fascicular block with LVH with repolarization abnormality [id number], Complete Assessment & Plan Assessment & Plan (1) (HFpEF) heart failure with preserved ejection fraction: Code(s): I50.30 - Unspecified diastolic (congestive) heart failure Category: Medical Plan: Heart failure preserved ejection fraction with intermittent episodes of fluid overload requiring higher dose of Lasix. His heart failure syndrome is still active but has not lead to hospitalization. He understands management well. I would start him on Jardiance 10 mg daily for neurohormonal modulation to avoid progressive heart failure syndrome. Continue otherwise Lasix at current dose. Continue rhythm control approach which has helped him significantly. Continue aggressive blood pressure control which is currently well optimized. Will monitor for ongoing symptoms. If he has progressive symptoms may need further workup for infiltrative disorder such as amyloidosis and/or sarcoidosis given his bifascicular block and heart failure syndrome. Continue participate in regular physical activity and importance of this was discussed. Continue participate in weight reduction therapy as well. (2) Paroxysmal atrial fibrillation: Code(s): I48.0 - Paroxysmal atrial fibrillation Category: Medical Plan: Paroxysmal atrial fibrillation which has remained suppressed on amiodarone therapy in his derived significant clinical benefit from rhythm control approach. This was discussed with him. He is finally scheduled for ablation which should help to prevent triggers good will eventually still require antiarrhythmic drug therapy to maintain rhythm given his underlying structural heart issues. Will discuss that as time goes on. Advise not to self amiodarone immediately post ablation therapy. Continue full oral anticoagulation, currently on Eliquis 5 mg b.i.d.. He does have ITP and manage his is platelet count will intermittent therapy. Will follow up in the clinic in 5 months time, sooner p.r.n.. Thank you for allowing me to partake in his care Orders: Orders B Type Natriuretic Peptide 1 Week I50.30 - Unspecified diastolic (congestive) heart failure Basic Metabolic Panel 1 Week I50.30 - Unspecified diastolic (congestive) heart failure Medications: New empagliflozin (Jardiance) 10 mg PO DAILY 30 tabs 5RF I50.30 - Unspecified diastolic (congestive) heart failure Changed From amiodarone 200 mg PO BID 180 tabs 1RF To amiodarone 200 mg PO ONCE Coding Level of Care Code Est Pt Level 4 (66302) Complex EM visit Add On G2211 Diagnoses (HFpEF) heart failure with preserved ejection fraction I50.30 Paroxysmal atrial fibrillation I48.0 CPT Codes EKG - CPT: 59454-[id number], Complete ([id number])
== END 2024-10-27 15:05 | disposition home or self-care (01) ==
LOC: HO.HCS 14:29
PROVIDERS: PCP Internal Medicine; Visit Provider Internal Medicine Cardiovascular Disease
DX: I50.30 Unspecified diastolic (congestive) heart failure (principal); I48.0 Paroxysmal atrial fibrillation
CPT/HCPCS: 93010; 99214; G2211

== ENCOUNTER → 2024-10-27 14:29 | Outpatient (BNVA) | payer MEDICARE, OTHER, SELFPAY | PROVIDERS: PCP Internal Medicine; Visit Provider Internal Medicine Cardiovascular Disease | DX: I50.30 Unspecified diastolic (congestive) heart failure (principal); I48.0 Paroxysmal atrial fibrillation; I45.2 Bifascicular block; I51.7 Cardiomegaly; R94.31 Abnormal electrocardiogram [ECG] [EKG] | CPT/HCPCS: 93005; 99212 ==

== ENCOUNTER 2024-10-29 08:17 | Outpatient (AMB) | payer MEDICARE, OTHER, SELFPAY ==
--- NOTE | 2024-10-29 08:25 | A.OFFVIS_ITS ---
Intake Visit Reasons: 1y/PVR Intake Note: Patient is Present for 1y Follow Up/PVR Urology Medication VITAMIN B12 Antibiotic Allergies: None Blood Thinners: None TODAY'S PVR:0ML'S Player Development Manager Required: No Allergies flecainide Adverse Reaction (Intermediate, Verified 10/29/24 08:26) EKG abnormality HPI Comments Details: Donald is a pleasant male. He is seen for following urologic conditions - nephrolithiasis - erectile dysfunction - renal cysts - stable Stable cysts and stones Follow-up imaging Discussed weight loss Feels has progressive weakness of stream Trial terazosin 5 mg Using on demand tadalafil but had concerns about daily Good response for erections and lower urinary tract symptoms particularly emptying Smalltalk Developer with concerns - Dr Peck Tadalafil has been shown a number studies to improve cardiac vascularization. PDE-5 inhibitors indicate the encouraging useful effects by ischemia/reperfusion injury, myocar-dial infarction, cardiac hypertrophy, cardiomyopathy and systolic and diastolic congestive heart failure. Therefore, this and similar reviews can help for additional clinical targeting in the therapy of cardiovascular diseases. Lower urinary tract symptoms Progressive weakness of stream Nephrolithiasis Prior small left lower pole stone Current therapy is hydration therapy with lemon Imaging - 12/06 renal ultrasound to 3 cm cyst on right side, no evidence of stones - 12/07 renal ultrasound 5 cm right side - 12/08 renal ultrasound 5 mm right side stable - radiology recommendation no further surveillance required - 12/09 renal ultrasound no evidence of stones Erectile dysfunction Response to on demand [facility] Medical History (HFpEF) heart failure with preserved ejection fraction CHF exacerbation Paroxysmal atrial fibrillation Obesity Carpal tunnel syndrome, left Gout Right bundle branch block (RBBB) with left anterior fascicular block MALIHA on CPAP Chronic ITP (idiopathic thrombocytopenic purpura) Malignant melanoma of skin of arm Basal cell carcinoma (BCC) in situ of skin Anemia Kidney stones Asthma Hypertension Surgical History Hx of cystoscopy Hx of lithotripsy Hx of colonoscopy History of hernia surgery H/O bilateral hip replacements Family History Father No problems noted. Mother No problems noted. Family/Other No problems noted. Sister Pancreatic cancer Social History Household Members: Spouse Housing: House Are you a primary lawn caretaker to a significant other at home: No Do you presently have visiting nurse or other home services: No Alcohol intake: current Alcohol intake frequency: a few times a month Alcohol type: beer Patient Tobacco Use Status: Never used Tobacco service: No Current occupational status: retired Review of Systems Const Denies chills and Denies fever(s) Card Reports no additional complaints and Denies syncope Resp Denies cough GI Denies abdominal pain and Denies heartburn Reports as per HPI and Denies change in libido Neuro Denies syncope Psych Denies change in libido Endo Denies change in libido Physical Exam Const General: cooperative, healthy appearing, comfortable and no acute distress Orientation/consciousness: patient oriented x3 HEENT Face and sinus: Yes normal facial exam Mouth: moist mucous membranes Neck Neck: Yes normal visual inspection, Yes full ROM and Yes trachea midline Chest Chest palpation & inspection: normal inspection of the chest Resp Effort & Inspection: normal respiratory effort, able to speak in complete sentences and no respiratory distress GI Inspection: Yes normal to inspection Back/Spine/Pelvis Cervical Spine: normal cervical lordosis Thoracic/Lumbar Spine: thoracic and lumbar spine normal to inspection Skin General skin exam: no rashes or lesions noted Neuro General: patient oriented x3, gait normal, tone normal and moves all extremities Extrem General: Yes normal to inspection and Yes capillary refill normal Office Procedures Post Void Residual Post Residual Void Post Void Residual (PVR): 0 [id number] Void Residual by ultrasound Assessment & Plan Assessment & Plan (1) Kidney stones: Code(s): N20.0 - Calculus of kidney Category: Medical (2) Bladder outlet obstruction: Code(s): N32.0 - Bladder-neck obstruction Category: Medical Plan Trial terazosin Three-month follow-up uroflow office Medications: New terazosin 5 mg PO BEDTIME 30 caps 2RF 30 days N32.0 - Bladder-neck obstruction, N40.1 - Benign prostatic hyperplasia with lower urinary tract symptoms, R35.0 - Frequency of micturition Patient Instructions: This note is constructed using voice recognition software. While every effort has been made to ensure accuracy brick burner errors may have been included. Imaging studies, laboratory and physical exam results were discussed and reviewed in detail. No major barriers to patient understanding were identified. An opportunity to ask questions regarding the treatment plan was provided. All questions were answered. The patient expressed understanding and agreement with the above treatment plan. The patient is aware they should contact our office by phone for worsening of their current condition or the appearance of new urologic symptoms. Compliance is encouraged with any medications and followup testing that is ordered. It is a privilege to participate in the urologic care of your patient. If you have any questions or concerns regarding treatment for the above conditions, or other urologic issues, please do not hesitate to contact me. The office telephone contact is [phone]. Sincerely, Dr Bill Mina MD, [facility] - Urology Compassionate Specialist Care for the Genitourinary System Coding Level of Care Code Est Pt Level 4 (02878) Diagnoses Kidney stones N20.0 Bladder outlet obstruction N32.0 CPT Codes Post Residual Void - PVR CPT Code: 50255-Ihhz Void Residual by ultrasound ([id number])
== END 2024-10-29 09:30 | disposition home or self-care (01) ==
LOC: HO.HUSH 08:18
PROVIDERS: PCP Internal Medicine; Visit Provider Urology
DX: N20.0 Calculus of kidney (principal); N32.0 Bladder-neck obstruction
CPT/HCPCS: 99214

== ENCOUNTER → 2024-10-29 08:17 | Outpatient (BNVA) | payer MEDICARE, OTHER, SELFPAY | PROVIDERS: PCP Internal Medicine; Visit Provider Urology | DX: N20.0 Calculus of kidney (principal); N32.0 Bladder-neck obstruction | CPT/HCPCS: 51798; 99212 ==

== ENCOUNTER 2024-11-04 08:28 | Outpatient (REF) | payer MEDICARE, OTHER, SELFPAY ==
[2024-11-04 09:54] LABS: B Type Natriuretic Peptide < 10 pg/mL (<100)
[2024-11-04 09:56] LABS: Anion Gap 11 (12-20); Blood Urea Nitrogen 21 mg/dL (9-16); Calcium 9.5 mg/dL (8.4-10.2); Carbon Dioxide 25 mmol/L (22-29); Chloride 108 mmol/L (96-108); Estimated Glomerular Filt Rate 56; Glucose Random 84 mg/dL (60-115); Potassium 4.1 mmol/L (3.3-5.1); Sodium 140 mmol/L (135-145)
== END 2024-11-04 08:29 | disposition home or self-care (01) ==
LOC: HO.LAB 08:28
PROVIDERS: PCP Internal Medicine; Visit Provider Internal Medicine Cardiovascular Disease
DX: I50.30 Unspecified diastolic (congestive) heart failure (principal)
CPT/HCPCS: 36415; 80048; 83880

== ENCOUNTER 2025-01-27 08:50 | Outpatient (AMB) | payer MEDICARE, OTHER, SELFPAY ==
--- NOTE | 2025-01-27 09:04 | A.OFFVIS_ITS ---
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 PDE-5 inhibitors indicate the encouraging useful effects by ischemia/reperfusion injury, myocar-dial infarction, cardiac hypertrophy, cardiomyopathy and systolic and diastolic congestive heart failure. Therefore, this and similar reviews can help for additional clinical targeting in the therapy of cardiovascular diseases. Lower urinary tract symptoms Progressive weakness of stream Nephrolithiasis Prior small left lower pole stone Current therapy is hydration therapy with lemon Imaging - 12/06 renal ultrasound to 3 cm cyst on right side, no evidence of stones - 12/07 renal ultrasound 5 cm right side - 12/08 renal ultrasound 5 mm right side stable - radiology recommendation no further surveillance required - 12/09 renal ultrasound no evidence of stones Erectile dysfunction Response to on demand [facility] Medical History (HFpEF) heart failure with preserved ejection fraction CHF exacerbation Paroxysmal atrial fibrillation Obesity Carpal tunnel syndrome, left Gout Right bundle branch block (RBBB) with left anterior fascicular block MALIHA on CPAP Chronic ITP (idiopathic thrombocytopenic purpura) Malignant melanoma of skin of arm Basal cell carcinoma (BCC) in situ of skin Anemia Kidney stones Asthma Hypertension Surgical History Hx of cystoscopy Hx of lithotripsy Hx of colonoscopy History of hernia surgery H/O bilateral hip replacements Family History Father No problems noted. Mother No problems noted. Family/Other No problems noted. Sister Pancreatic cancer Social History Household Members: Spouse Housing: House Are you a primary care program director to a significant other at home: No Do you presently have visiting nurse or other home services: No Alcohol intake: current Alcohol intake frequency: a few times a month Alcohol type: beer Patient Tobacco Use Status: Never used Tobacco Use of substances other than those prescribed or required for medical reasons: No Have you been hit, kicked, punched, or otherwise hurt by someone within the past year? If so, by whom?: No Do you feel safe in your current relationship?: Yes Advance Directives: Yes Advance Directives Information Provided: No Advance Directives on File: No Do you have thoughts of harming others: None Do you have a plan to hurt others: No Plan Do you have the means to hurt others: No Recently lost weight without trying: No Eating poorly because of decreased appetite: No service: No Current occupational status: retired Review of Systems Const Denies chills and Denies fever(s) Card Reports no additional complaints and Denies syncope Resp Denies cough GI Denies abdominal pain and Denies heartburn Reports as per HPI and Denies change in libido Neuro Denies syncope Psych Denies change in libido Endo Denies change in libido Physical Exam Const General: cooperative, healthy appearing, comfortable and no acute distress Orientation/consciousness: patient oriented x3 HEENT Face and sinus: Yes normal facial exam Mouth: moist mucous membranes Neck Neck: Yes normal visual inspection, Yes full ROM and Yes trachea midline Chest Chest palpation & inspection: normal inspection of the chest Resp Effort & Inspection: normal respiratory effort, able to speak in complete sentences and no respiratory distress GI Inspection: Yes normal to inspection Back/Spine/Pelvis Cervical Spine: normal cervical lordosis Thoracic/Lumbar Spine: thoracic and lumbar spine normal to inspection Skin General skin exam: no rashes or lesions noted Neuro General: patient oriented x3, gait normal, tone normal and moves all extremities Extrem General: Yes normal to inspection and Yes capillary refill normal Office Procedures AMB Uroflow Maximum urinary flow rate (mL/second): 5.4 Voided volume (mL): 65 Comments: Q average 2.4, Q max 5.4, voided volume 65 cc, PVR 0 [id number]-Amptfcavrruk Procedure code (CPT) selection complete Assessment & Plan Assessment & Plan (1) Bladder outlet obstruction: Code(s): N32.0 - Bladder-neck obstruction Category: Medical (2) Weak urinary stream: Code(s): R39.12 - Poor urinary stream Category: Medical Plan Six-month follow-up Orders: Orders AMB Uroflow 01/27/25 N32.0 - Bladder-neck obstruction, R39.12 - Poor urinary stream Medications: Changed From terazosin 5 mg PO BEDTIME 30 days 30 caps 2RF N32.0 - Bladder-neck obstruction, N40.1 - Benign prostatic hyperplasia with lower urinary tract symptoms, R35.0 - Frequency of micturition To terazosin 5 mg PO BEDTIME 90 caps 1RF 90 days N32.0 - Bladder-neck obstruction, N40.1 - Benign prostatic hyperplasia with lower urinary tract symptoms, R35.0 - Frequency of micturition Patient Instructions: This note is constructed using voice recognition software. While every effort has been made to ensure accuracy flight crew time clerk errors may have been included. Imaging studies, laboratory and physical exam results were discussed and reviewed in detail. No major barriers to patient understanding were identified. An opportunity to ask questions regarding the treatment plan was provided. All questions were answered. The patient expressed understanding and agreement with the above treatment plan. The patient is aware they should contact our office by phone for worsening of their current condition or the appearance of new urologic symptoms. Compliance is encouraged with any medications and followup testing that is ordered. It is a privilege to participate in the urologic care of your patient. If you have any questions or concerns regarding treatment for the above conditions, or other urologic issues, please do not hesitate to contact me. The office telephone contact is [phone]. Sincerely, Dr Bill Mina MD, [facility] - Urology Compassionate Specialist Care for the Genitourinary System Coding Level of Care Code Est Pt Level 3 (64378) Diagnoses Bladder outlet obstruction N32.0 Weak urinary stream R39.12
--- OUTSIDE RECORDS SUMMARY | 2025-01-27 09:10 | XMS_ITS | Patient Health Record ---
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 DO NOT EXCEED 30ML/DAY. Oral; Duration: 12 Unknown Symbicort 80-4.5 MCG/ACT 2 puffs Inhalat ion Twice a day Active Amoxicillin-Pot Clavulanate 500-125 MG TAKE 1 TABLET BY MOUTH 3 TIMES A DAY FOR 10 DAYS Oral; Duration: 10 Unknown levoFLOXacin 500 MG TAKE 1 TABLET BY TENA TH EVERY DAY Oral; Duration: 10 Unknown predniSONE 10 MG TAKE 4TABS 2XDAY X5D AYS 3TABS 2XDAY X3DAYS 2TABS 2XDAY X2DAYS 1TAB 2XDAY X2DAYS 1TAB/DAY X2DAYS Oral; Duration: 14 Unknown Nystatin 854289 UNIT/ML SWISH AND SWALLO W 1 TEASPOONFUL (5 MLS) BY MOUTH 4 TIMES A DAY FOR 7 DAYS Mouth/Throat; Duration: 7 Unknown Albuterol Sulfate (2.5 MG/3ML) 0.083% INHALE 1 VIAL VIA NEBULIZER EVERY 6 HOURS NEEDED WHEEZING Inhalation; Duration: 13 Unknown Multivitamin Men - Orally A ctive Nystop [id number] UNIT/GM APPLY 1 APPLICATIO N TOPICALLY 2 TIMES A DAY External; Duration: 30 Not-Takin g Montelukast Sodium 10 MG 1 tablet in the evening Orally Once a day Active Fluticasone Propionate 50 MCG/ACT 1 spray in each nostril Nasally Once a day Active Betamethasone Dipropionate Aug 0.05 % APPLY TOPICALLY TO RASH ON ARM TWICE A DAY NEEDED, NOT TO EXCEED 2 WEEKS External; Duration: 20 Unknown Lisinopril 20 MG 1 tablet Orally Once a day Active Social History Tobacco Use: Social History Observation Description Date Details (start date - stop date) Never Smoker NA - NA Tobacco Use/Smoking Question Answer Notes Are you a: nonsmoker Additional Findings: Tobacco Non-User Current no n-smoker Alcohol Screen Question Answer Notes Did you have a drink contain ing alcohol in the past year? Yes How often did you have a dri nk containing alcohol in the past year? 2 to 3 times a week (3 points) Points 3 Interpretation Negative Tobacco use other than smoking: Question Answer Notes Are you an other tobacco user? No Problems Problem Type SNOMED Code ICD Code Onset Dates Problem Status W/U Status Risk Notes Problem Tinea unguium (145801548) Tinea unguium (B35.1) Active confirmed Problem Ingrowing nail (870635253) Ingrowing nail (L60.0) Active confirmed Plan Of Treatment Pending Test Test Name Order Date [id number] Plate 12/26/2016 Insurance Providers Payer Name Payer Address Payer Phone Subscriber Number Group Number Insured Name Patient Relationship to Insured Coverage Start Date Coverage End Date [facility] [address] [place] [id number] Renetta Varner Spouse - patient is the spouse of the insured Medical (General) History Medical History History ICD Code asthma Arthritis Gout High blood pressure Measles Mumps Chicken pox Joint implants/screws ITP Surgical History Surgery Date(Month/Year) left hip replacement 03/2009 right hip replacement 01/2014
== END 2025-01-27 09:41 | disposition home or self-care (01) ==
LOC: HO.HUSH 08:51
PROVIDERS: PCP Internal Medicine; Visit Provider Urology
DX: N32.0 Bladder-neck obstruction (principal); R39.12 Poor urinary stream
CPT/HCPCS: 99213

== ENCOUNTER → 2025-01-27 08:50 | Outpatient (BNVA) | payer MEDICARE, OTHER, SELFPAY | PROVIDERS: PCP Internal Medicine; Visit Provider Urology | DX: N32.0 Bladder-neck obstruction (principal); R39.12 Poor urinary stream | CPT/HCPCS: 51741; 99212 ==

== ENCOUNTER 2025-04-27 13:33 | Outpatient (AMB) | payer MEDICARE, OTHER, SELFPAY ==
[2025-04-27 13:35] VITALS: BP 122/64; PULSE 76; BMI 41.2
--- NOTE | 2025-04-27 13:35 | MHC.OFFVIS ---
Vital Signs 04/27/25 13:35 Height 5 ft 10 in Weight 287 lb 0.67 oz BMI 41.2 BP 122/64 Blood Pressure Location Lt brachial Position Sitting Pulse 76 Pulse Source Pulse Oximeter Intake Visit Reasons: 5 Month f/up labs r/s Intake Note: 5 month follow up / Labs Radio Adjuster Required: No Accompanied by: Spouse Allergies flecainide Adverse Reaction (Intermediate, Verified 04/27/25 13:40) EKG abnormality Medication List - Last Reconciled 04/27/25 by Branden Gaston MD apixaban (Eliquis) 5 mg PO BID cholecalciferol (vitamin D3) (Vitamin D3) 50 mcg PO DAILY cyanocobalamin (vitamin B-12) (Vitamin B-12) 1,000 mcg PO DAILY empagliflozin (Jardiance) 10 mg PO DAILY fluticasone propionate 50 mcg/actuation 2 sprays intranasal BEDTIME furosemide (Lasix) 20 mg PO DAILY PRN 90 days MDD 40 loratadine 10 mg PO DAILY metoprolol tartrate 50 mg PO BID montelukast (Singulair) 10 mg PO BEDTIME multivitamin 1 tab PO DAILY terazosin 5 mg PO BEDTIME 90 days HPI Comments Details: Donald comes for follow-up. He said since ablation and maintaining rhythm he is feeling a lot more energetic with much less shortness of breath. His requirements for diuretics also have improved. He has lost about 20 lb with more activity. Overall feeling well. He has not had any bleeding issues or Platelet counts have remained mostly stable. No prolonged irregular heartbeat or palpitation. Using his CPAP. No lightheadedness, syncope. [facility] Medical History (HFpEF) heart failure with preserved ejection fraction CHF exacerbation Paroxysmal atrial fibrillation Obesity Carpal tunnel syndrome, left Gout Right bundle branch block (RBBB) with left anterior fascicular block MALIHA on CPAP Chronic ITP (idiopathic thrombocytopenic purpura) Malignant melanoma of skin of arm Basal cell carcinoma (BCC) in situ of skin Anemia Kidney stones Asthma Hypertension Surgical History Hx of cystoscopy Hx of lithotripsy Hx of colonoscopy History of hernia surgery H/O bilateral hip replacements Family History Father No problems noted. Mother No problems noted. Family/Other No problems noted. Sister Pancreatic cancer Social History Household Members: Spouse Housing: House Are you a primary home day care provider to a significant other at home: No Do you presently have visiting nurse or other home services: No Alcohol intake: current Alcohol intake frequency: a few times a month Alcohol type: beer Patient Tobacco Use Status: Never used Tobacco service: No Current occupational status: retired Review of Systems Const Denies daytime sleepiness, Denies difficulty sleeping, Denies snoring, Denies stops breathing during sleep and Denies weakness Card Denies chest pain, Denies rapid heart rate, Denies irregular heart rhythm, Denies claudication, Denies leg edema, Denies lightheadedness, Denies palpitations, Denies dyspnea, Denies dyspnea on exertion, Denies orthopnea, Denies paroxysmal nocturnal dyspnea and Denies slow heart rate Resp Denies cough, Denies dyspnea, Denies dyspnea on exertion and Denies snoring GI Reports no additional complaints, Denies hematochezia, Denies change in stool character and Denies dyspepsia Musc Denies abnormal gait, Denies muscle weakness and Denies numbness Neuro Denies abnormal gait, Denies numbness and Denies weakness Endo Denies palpitations Physical Exam Vital Signs: Last Vital Signs Pulse 76 04/27/25 13:35 BP 122/64 04/27/25 13:35 BMI result Body Mass Index 41.2 Const General: cooperative, comfortable, no acute distress, alert and awake Nutritional Appearance: obese Orientation/consciousness: patient oriented x3 Limitations: no limitations Neck Neck: Yes trachea midline, Yes supple and Yes no JVD (+ AJR) Cardio Jugular venous distension: no JVD Rate: regular rate Rhythm: regular rhythm Heart sounds: S1 normal heart sound present, S2 normal heart sound present, no click, no gallops and no rubs GI Auscultation: normal bowel sounds Skin General skin exam: no rashes or lesions noted Neuro General: patient oriented x3 and no focal motor deficits Extrem General: No clubbing, No cyanosis, Yes edema and Yes venous stasis dermatitis Office Procedures EKG Details: EKGs shows normal sinus rhythm with right bundle-branch block with LVH [id number]-[id number], Complete Assessment & Plan Assessment & Plan (1) Paroxysmal atrial fibrillation: Code(s): I48.0 - Paroxysmal atrial fibrillation Category: Medical Plan: Paroxysmal atrial fibrillation in this elderly gentleman with concomitant issues with heart failure with difficult control AFib undergoing ablation. Since then he has been doing well and maintaining rhythm. We discussed about pursuing rhythm control approach aggressively. Off all antiarrhythmic drugs at this point time. Will monitor clinically. Advised to call me with any new symptoms. Continue CPAP therapy. Continue aggressively participate in weight loss program which he is doing. Continue full oral anticoagulation, currently on Eliquis 5 mg b.i.d.. Semi annual renal function test should be pursued. Avoidance of stimulants was discussed. He wants to consider Watchman device, given his chronic idiopathic thrombocytopenic purpura with intermittent significant thrombocytopenia this could be an option. He had wants to think about it. (2) (HFpEF) heart failure with preserved ejection fraction: Code(s): I50.30 - Unspecified diastolic (congestive) heart failure Category: Medical Plan: Heart failure preserved ejection fraction, clinically euvolemic well compensated much improved since maintaining rhythm. Continue pursue rhythm control approach as above. Continue aggressive blood pressure control which is currently well optimized. Continue CPAP therapy. Continue to participate in weight loss program. Continue current diuretic regimen. Daily weight monitoring avoidance salt loading was discussed. Continue therapy with Jardiance. (3) CAD (coronary artery disease): Code(s): I25.10 - Atherosclerotic heart disease of [place] coronary artery without angina pectoris Category: Medical Plan: CAD nonobstructive. Continue aggressive medical therapy. Currently on full oral anticoagulation with Eliquis and therefore would avoid aspirin therapy. Continue aggressive lipid modification goal LDL less than 70 mg/dL. Blood pressure is currently well optimized. Will follow up in the clinic in 6 months time, sooner PRN. Thank you for allowing me to partake in his care Coding Level of Care Code Est Pt Level 4 (92430) Complex EM visit Add On G2211 Diagnoses Paroxysmal atrial fibrillation I48.0 (HFpEF) heart failure with preserved ejection fraction I50.30 CAD (coronary artery disease) I25.10 CPT Codes EKG - CPT: 20822-Qfbyauhtgtoowmijy, Complete ([id number])
== END 2025-04-27 14:08 | disposition home or self-care (01) ==
LOC: HO.HCS 13:34
PROVIDERS: PCP Internal Medicine; Visit Provider Internal Medicine Cardiovascular Disease
DX: I48.0 Paroxysmal atrial fibrillation (principal); I50.30 Unspecified diastolic (congestive) heart failure; I25.10 Atherosclerotic heart disease of native coronary artery without angina pectoris
CPT/HCPCS: 93010; 99214; G2211

== ENCOUNTER → 2025-04-27 13:33 | Outpatient (BNVA) | payer MEDICARE, OTHER, SELFPAY | PROVIDERS: PCP Internal Medicine; Visit Provider Internal Medicine Cardiovascular Disease | DX: I48.0 Paroxysmal atrial fibrillation (principal); I11.0 Hypertensive heart disease with heart failure; I50.30 Unspecified diastolic (congestive) heart failure; I25.10 Atherosclerotic heart disease of native coronary artery without angina pectoris; I45.2 Bifascicular block; D69.3 Immune thrombocytopenic purpura | CPT/HCPCS: 93005; 99212 ==